=== PATIENT | female | born 1990 | race Caucasian/White ===

== ENCOUNTER 2020-01-25 17:32 | Emergency (ER) | payer OTHER, SELFPAY ==
[2020-01-25 17:50] VITALS: BP 126/76; PULSE 82; RESP 16; TEMP 36.8; O2SAT 100
--- NOTE | 2020-01-25 18:55 | ED.URI ---
HPI - URI/Sore Throat General Chief Complaint: Upper Respiratory Infection Stated Complaint: cough chills and aches Time Seen by Provider: 01/25/20 18:56 Source: patient and RN notes reviewed Mode of arrival: ambulatory Limitations: no limitations History of Present Illness HPI Narrative: 29 year old female who presents to [facility] who is 10 weeks with complaints of sore throat that started on Thursday with complaints of chills,cough, headache, body aches and Nausea and vomiting since yesterday. Patient states that she has been taking Robitussin for her symptoms, states that her nasal drainage is clear. Patient denies any shortness of breath or any wheezing, lungs are clear to ascultation with SAO2 100% on room air. Patient states that she took a flu shot this season. MD elicited complaint: cough, sore throat, rhinorrhea and other (chills, headache, nausea and vomiting) Onset (ago): day(s) (3) Consistency: constant Severity: moderate Pain scale (0-10): 5 Description of mucous: clear Able to tolerate fluids by mouth: Yes Exacerbating factors: swallowing Relieving factors: nothing Associated symptoms: chills, myalgias, headache, rhinorrhea, sore throat and cough Treatments prior to arrival: other (Robitussin) Related Data Home Medications Medication Instructions Recorded Confirmed [id number] fumarate-FA 1 tablet PO DAILY 01/25/20 01/25/20 [] Allergies Allergy/AdvReac Type Severity Reaction Status Date / Time No Known Allergies Allergy Verified 01/25/20 18:54 Review of Systems Review of Systems: Narrative: CONSTITUTIONAL:unknown if fever,positive for chills no sweats. EYES: Denies visual changes, redness, or discharge. ENT:Positive rhinorrhea, congestion, sore throat, no otalgia. CARDIOVASCULAR: Denies chest pain, palpitations, or edema. RESPIRATORY:Positive cough no dyspnea. GASTROINTESTINAL: Denies abdominal pain, reports nausea, vomiting, no diarrhea. GENITOURINARY: Denies dysuria or hematuria. SKIN: Denies rash or itching. MUSCULOSKELETAL: Denies back pain, joint pain, reports body aches NEUROLOGIC: reports headache,nonumbness, or weakness. PSYCHIATRIC:History of anxiety or depression. All systems reviewed & are unremarkable except as noted in HPI and below [facility] Past Medical History Medical History (Updated 01/31/20 @ 09:25 by Kanika Ansari NP) Anxiety and depression GERD (gastroesophageal reflux disease) Migraines Sciatica Surgical History Surgical History (Updated 01/31/20 @ 09:24 by Kanika Ansari NP) H/O laparoscopy Status post right foot surgery Social History Social History (Updated 01/31/20 @ 09:25 by Kanika Ansari NP) Smoking status: Never smoker Living arrangements: with family Gender identity (if verbalized by the patient): Female Comments At time of signature, agree with nursing past medical, social history. There is no relevant family history pertinent to the presenting complaint Exam Narrative: Exam Narrative: GENERAL: Well-appearing, well-nourished, and in no acute distress. HEAD: Normocephalic, atraumatic. EYES: PERRLA and EOMI. ENT: Nares red, clear rhinorrhea no epistaxis. Mucous membranes moist.TM's normal with good light reflex, throat pink with no lesions or exudates, post nasal drainage noted NECK: Supple. no Lymphadenopathy CHEST: Clear to auscultation. No respiratory distress.cough dry with SAO2 100% on room air HEART: Regular rate and rhythm. No murmur heard. Normal peripheral pulses. ABDOMEN: Soft, nontender, nondistended, normal active bowel sounds, no dysuria, negative McBurney point tenderness. EXTREMITIES: Normal range of motion. No edema. SKIN: Warm, dry, no rash. NEURO: No focal deficits. Alert and oriented x3. Course Vital Signs Vital signs: Vital Signs Temperature 36.8 C 01/25/20 17:50 Pulse Rate 82 01/25/20 17:50 Respiratory Rate 16 01/25/20 17:50 Blood Pressure 126/76 01/25/20 17:50 Pulse Oximetr
== END 2020-01-25 19:10 | disposition home or self-care (01) ==
PROVIDERS: Emergency Provider Registered Nurse; PCP Nurse Practitioner Family
DX: O99.511 Diseases of the respiratory system complicating pregnancy, first trimester (principal); Z3A.10 10 weeks gestation of pregnancy; J06.9 Acute upper respiratory infection, unspecified; J02.9 Acute pharyngitis, unspecified
CPT/HCPCS: 87081; 87804; 87880; 99213; G0463

== ENCOUNTER 2020-08-08 09:58 | Outpatient (CLI) | payer OTHER, MEDICAID, SELFPAY ==
[2020-08-08 10:46] VITALS: BP 132/85; PULSE 92
[2020-08-08 11:01] VITALS: BP 126/82; PULSE 85
[2020-08-08 11:07] LABS: Basophils Percent Auto 0.3 % (0.2-1.2); Eosinophils Absolute Auto 0.1 K/mm3 (0-0.3); Eosinophils Percent Auto 0.8 % (0-4.4); Hematocrit 30.4 % (37.0-47.0); Hemoglobin 10.3 g/dL (12.0-15.0); Immature Granulocyte Absolute 0.05 K/mm3 (0.00-0.031); Immature Granulocyte Percent A 0.6 % (0-0.5); Lymphocytes Absolute Auto 1.35 K/mm3 (0.9-3.2); Lymphocytes Percent Auto 15.6 % (18.3-44.2); Mean Corpuscular HGB Conc 33.9 g/dl (32-36); Mean Corpuscular Hemoglobin 27.8 pg (26-34); Mean Corpuscular Volume 81.9 fl (80-100); Mean Platelet Volume 11.2 fl (7.4-10.4); Monocytes Absolute Auto 0.6 K/mm3 (0.1-0.6); Monocytes Percent Auto 6.6 % (2.6-8.5); Neutrophils Absolute Auto 6.6 K/mm3 (1.3-6.7); Neutrophils Percent Auto 76.1 % (45.5-73.1); Platelet Count Result 150 k/mm3 (150-375); Red Blood Count 3.71 M/mm3 (4.2-5.4); Red Cell Distribution Width 13.7 % (11.5-14.5); White Blood Count 8.6 K/mm3 (4.5-10.0)
[2020-08-08 11:16] VITALS: BP 122/80; PULSE 83
[2020-08-08 11:20] VITALS: PULSE 80
[2020-08-08 11:21] LABS: Alanine Aminotransferase 16 U/L (4-35); Albumin Level 3.2 g/dL (3.5-5.1); Alkaline Phosphatase 175 U/L (38-126); Anion Gap 6 mmol/L (8-16); Aspartate Amino Transferase 19 U/L (14-36); Bilirubin,Total 0.5 mg/dL (0.2-1.3); Blood Urea Nitrogen 4 mg/dL (7-17); Calcium 8.8 mg/dL (8.4-10.2); Carbon Dioxide 21 mmol/L (22-30); Chloride 108 mmol/L (98-107); Estimated Glomerular Filt Rate > 60; Glucose 94 mg/dL (65-105); Potassium 3.7 mmol/L (3.4-5.0); Sodium 135 mmol/L (137-145); Uric Acid 4.1 mg/dL (2.5-7.5)
[2020-08-08 11:31] VITALS: BP 122/81; PULSE 69
--- NOTE | 2020-08-08 11:33 | PC.NURSE ---
Called Dr. Cruz with lab results and BPs. March D/C home.
== END 2020-08-08 11:35 | disposition home or self-care (01) ==
LOC: ANHOBOP 10:09 → ANHLDR 10:09
PROVIDERS: PCP Nurse Practitioner Family; Visit Provider Obstetrics & Gynecology
DX: O13.9 Gestational [pregnancy-induced] hypertension without significant proteinuria, unspecified trimester (principal); Z3A.00 Weeks of gestation of pregnancy not specified
CPT/HCPCS: 36415; 59025; 80053; 84550; 85025; 99199

== ENCOUNTER 2020-08-20 05:53 | Inpatient (IN) | payer OTHER, MEDICAID, SELFPAY ==
[2020-08-20] VITALS (117 sets, daily range): BP systolic 71–157; BP diastolic 30–102; PULSE 58–159; RESP 16–18; TEMP 36.1–37.1; O2SAT 83–100; BMI 40.6
[2020-08-20 06:45] LABS: Basophils Percent Auto 0.3 % (0.2-1.2); Eosinophils Absolute Auto 0.1 K/mm3 (0-0.3); Eosinophils Percent Auto 1.2 % (0-4.4); Immature Granulocyte Absolute 0.04 K/mm3 (0.00-0.031); Immature Granulocyte Percent A 0.5 % (0-0.5); Lymphocytes Absolute Auto 1.76 K/mm3 (0.9-3.2); Lymphocytes Percent Auto 20.4 % (18.3-44.2); Mean Corpuscular HGB Conc 33.3 g/dl (32-36); Mean Corpuscular Hemoglobin 27.3 pg (26-34); Mean Platelet Volume 11.1 fl (7.4-10.4); Monocytes Absolute Auto 0.8 K/mm3 (0.1-0.6); Monocytes Percent Auto 8.7 % (2.6-8.5); Neutrophils Percent Auto 68.9 % (45.5-73.1); Platelet Count Result 173 k/mm3 (150-375); Red Blood Count 3.66 M/mm3 (4.2-5.4); Red Cell Distribution Width 13.6 % (11.5-14.5); White Blood Count 8.6 K/mm3 (4.5-10.0)
[2020-08-20] MEDS: LACTATED RINGERS 1,000 ML 125 ML IV CONT ×3 (06:59→10:40)
[2020-08-20] MEDS: OXYTOCIN 30 UNITS/NS 500 ML 30 UNITS/500 ML BAG IV CONT (07:03)
--- NOTE | 2020-08-20 07:28 | LDADM ---
This patient, Ana Luisa Foreman, was admitted to Labor/Delivery/Recovery 104 on 08/20/20 at 05:53. Plans for labor, pain management and were discussed with patient. Patient/family oriented to hospital policies and general routines including ID bracelet, bed and alarms, visiting hours, pain management, procedures, bathroom and other care routines, personal items, smoking policy, room service/diet and guest tray routines, infant security routines, and visiting hours. Patient/Family are encouraged to report perceived risks to care and to ask questions if they do not understand what they are told or what they should do. See OBIX for further documentation.
--- NOTE | 2020-08-20 08:40 | WPDOBADMIT ---
Obstetrics - Admit Note Admission Note: record reviewed. Additions to the history and/or subsequent changes in the physical findings follow. 30 y/o at 39 2/7 weeks here for induction of labor. GBS neg. AVSS NST reactive TOCO: contractions irregularly ABD soft, nontender, gravid, vertex EXT nontender Cervix 5/50/-2. AROM with clear fluid. Vertex. A: IUP at 39 2/7 weeks with favorable cervix, desiring induction of labor. P: Oxytocin. Anticipate .
--- NOTE | 2020-08-20 09:37 | WPDANESEPP ---
Anes - Eval Pre Procedure Procedure: labor epidural Date/Time: 08/20/20 09:37 Surgeon: Anthony Pre Op Diagnosis: iol Patient Data Age: 30 Gender: F Height: 1.85 m Weight: 139.5 kg Last Vital Signs Temp 36.4 C L 08/20/20 06:25 Pulse 78 08/20/20 09:33 BP 135/91 H 08/20/20 09:33 Pulse Ox 100 08/20/20 09:33 Allergies Allergy/AdvReac Type Severity Reaction Status Date / Time No Known Allergies Allergy Verified 01/25/20 18:54 Home Medications Medication Instructions Recorded Confirmed Type [id number] fumarate-FA 1 tablet PO DAILY 01/25/20 08/20/20 History [] fluoxetine 20 mg PO DAILY 07/26/20 08/20/20 History pantoprazole 20 mg PO HS 08/20/20 08/20/20 History Laboratory Tests 08/20/20 08/20/20 08/20/20 06:40 06:40 06:40 WBC 8.6 K/mm3 K/mm3 (4.5-10.0) RBC 3.66 M/mm3 L M/mm3 (4.2-5.4) Hgb 10.0 g/dL L g/dL (12.0-15.0) Hct 30.0 % L % (37.0-47.0) MCV 82.0 fl fl (80-100) MCH 27.3 pg pg (26-34) MCHC 33.3 g/dl g/dl (32-36) RDW 13.6 % % (11.5-14.5) Plt Count 173 k/mm3 k/mm3 (150-375) MPV 11.1 fl H fl (7.4-10.4) Immature Gran % (Auto) 0.5 % % (0-0.5) Neut % (Auto) 68.9 % % (45.5-73.1) Lymph % (Auto) 20.4 % % (18.3-44.2) [place] % (Auto) 8.7 % H % (2.6-8.5) Eos % (Auto) 1.2 % % (0-4.4) Baso % (Auto) 0.3 % % (0.2-1.2) Lymph # (Auto) 1.76 K/mm3 K/mm3 (0.9-3.2) [place] # (Auto) 0.8 K/mm3 H K/mm3 (0.1-0.6) Eos # (Auto) 0.1 K/mm3 K/mm3 (0-0.3) Baso # (Auto) 0.0 K/mm3 K/mm3 (0.0-0.1) Abs Immat Gran (auto) 0.04 K/mm3 H K/mm3 (0.00-0.031) Absolute Neuts (auto) 6.0 K/mm3 K/mm3 (1.3-6.7) Absolute Nucleated RBC 0.0 K/mm3 K/mm3 (0.0-0.012) Nucleated RBC % 0.0 % % (0.0-0.2) RPR Pending Blood Type A Positive Antibody Screen Negative Patient hx anesthesia problems: none Family hx anesthesia problems: none PMFSH Past Medical History Medical History (Updated 01/31/20 @ 09:25 by Kanika Ansari NP) Anxiety and depression GERD (gastroesophageal reflux disease) Migraines Sciatica Surgical History Surgical History (Updated 01/31/20 @ 09:24 by Kanika Ansari NP) H/O laparoscopy Status post right foot surgery Family History Family History (Updated 07/26/20 @ 14:43 by Nola Hoover RN) Father Hypertension Sibling Hypertension Mother IBS (irritable bowel syndrome) Arthritis Social History Social History (Updated 01/31/20 @ 09:25 by Kanika Ansari NP) Smoking status: Never smoker Substance use: never Gender identity (if verbalized by the patient): Female Spiritual care concerns: No Exam Day of Procedure 08/20/20 09:37
[2020-08-20] MEDS: PHENYLEPHRINE 1,000 MCG/10 ML SYRINGE 100 MCG IV PUSH ×5 (10:14→11:09)
--- NOTE | 2020-08-20 14:01 | PM.OBPRVD ---
OB - Delivery Note Procedure Delivery date: 08/20/20 Procedure: Induction of labor with . Induction method: AROM and per pitocin protocol Delivery monitor: external FHT, external uterine and internal uterine Route of delivery: Laceration description: Perineal - 2nd Degree Delivery repair: vicryl (3-0) Specimen: Yes (cord blood) Estimated blood loss (mL): 390 Anesthesia type: Epidural Disposition: PACU Complications: None Narrative: 30 y/o at 39 2/7 weeks gestation who presented to the hospital for induction of labor. Oxytocin was administered intravenously. Amniotomy was performed with return of clear fluid. She received an epidural for pain control. Her labor progressed and her cervix dilated completely. She pushed with good effort and delivered the 's head to the perineum. A loose nuchal cord was reduced and the body delivered. The nose and mouth were bulb suctioned. After a delay, the cord was clamped and cut. The infant was handed off the field. Cord blood was collected. The placenta delivered spontaneously and was grossly normal in appearance. The usual 3 vessel cord was noted. A second degree midline perineal laceration was sustained. This was reapproximated using 3 0 Vicryl in the usual layered fashion. Excellent hemostasis resulted as did excellent reapproximation of the normal anatomy. Needle and instrument counts were correct. The patient was taken to recovery room in stable condition. The infant went to the nursery in stable condition. I was present and scrubbed for the entire delivery. Baby Date of : 08/20/20 Time of : 13:39 Weeks of gestation at delivery: 39 gender: Male Weight (pounds): 8 Weight (ounces): 14 presentation: vertex position: Left Occiput Anterior Placenta delivery description: Spontaneous and Normal Configuration cord vessel description: 3 Vessels and Nuchal Cord score one minute: 8 score five minutes: 9
--- NOTE | 2020-08-20 14:03 | PM.OBDSVD ---
DS: Admitting Diagnosis Admitting Diagnosis Admitting Diagnosis: IUP at 39 2/7 weeks Favorable cervix DS: Discharge Diagnosis Discharge Diagnosis (1) (normal spontaneous vaginal delivery): Code(s): O80 - Encounter for full-term uncomplicated delivery Status: Acute OB - DS: Summary OB Procedures : None OB Procedures Intrapartum: Spontaneous Vag Delivery OB Procedures: : None Time Spent with Patient Time attestation: Total time spent providing and/or coordinating discharge services: DS: Data Data Completed and Pending Labs on day of discharge: Labs from last 24 hours 08/20/20 08/20/20 08/20/20 06:40 06:40 06:40 WBC 8.6 RBC 3.66 L Hgb 10.0 L Hct 30.0 L MCV 82.0 MCH 27.3 MCHC 33.3 RDW 13.6 Plt Count 173 MPV 11.1 H Immature Gran % (Auto) 0.5 Neut % (Auto) 68.9 Lymph % (Auto) 20.4 [place] % (Auto) 8.7 H Eos % (Auto) 1.2 Baso % (Auto) 0.3 Lymph # (Auto) 1.76 [place] # (Auto) 0.8 H Eos # (Auto) 0.1 Baso # (Auto) 0.0 Abs Immat Gran (auto) 0.04 H Absolute Neuts (auto) 6.0 Absolute Nucleated RBC 0.0 Nucleated RBC % 0.0 RPR Pending Blood Type A Positive Antibody Screen Negative Discharge Plan Discharge Attending physician on discharge: Delfino Cruz Discharging Clinician: Delfino Cruz Patient Disposition: Home, Self-Care Activity: pelvic rest Diet: regular Discharge Instructions: Call or return if temperature above 100.4? F, increased abdominal pain, increased vaginal bleeding or any new problems. Stand Alone Forms: General Discharge Information Follow-up/Referrals: Delfino Cruz MD [Physician] - (6 weeks) Discharge Medications: New ibuprofen 600 mg tablet 600 mg PO Q6H PRN (Reason: cramps) Qty: 30 RF: 0 ferrous sulfate 325 mg (65 mg iron) tablet 325 mg PO DAILY Qty: 30 RF: 0 Continued 28-800 mg-mcg Tablet 1 tablet PO DAILY RF: 0 fluoxetine 20 mg Tablet 20 mg PO DAILY RF: 0 pantoprazole 20 mg Tablet,Delayed Release (Dr/Ec) 20 mg PO HS RF: 0 Date of admission: 08/20/20 05:53 Primary Care Provider: GRACE,MERCEDES Admitting Provider: Delfino Cruz Attending physician on admission: Delfino Cruz
[2020-08-20] MEDS: IBUPROFEN 600 MG TABLET PO ×2 (15:55→23:52)
[2020-08-20] MEDS: WITCH HAZEL 40 PADS 1 PAD TOPICAL (15:56)
[2020-08-20] MEDS: BENZOCAINE 20% AER SPR (*SP) 56 GM CAN 1 SPRAY TOPICAL (15:56)
--- NOTE | 2020-08-20 19:22 | PC.NURSE ---
1627 Pt admitted to room 292 per wheelchair from labor and delivery after spontaneous vaginal delivery of viable male infant at [address] Mercy Cruz. Pt is a and is choosing to breast feed ; Her partner is present. Couple oriented to room, staffing and procedures; admission folder reviewed. Pt's VSS and assessment WNL.
[2020-08-20] MEDS: ACETAMINOPHEN 325 MG TABLET 650 MG PO (19:29)
[2020-08-20] MEDS: PANTOPRAZOLE SOD SESQUIHYDRATE 20 MG TAB PO (21:09)
[2020-08-21] MEDS: ACETAMINOPHEN 325 MG TABLET 650 MG PO (04:43)
[2020-08-21 05:10] LABS: Hemoglobin 8.9 g/dL (12.0-15.0)
[2020-08-21 08:05] VITALS: BP 137/90; PULSE 103; RESP 18; TEMP 36.6; O2SAT 97
[2020-08-21 08:24] LABS: Rapid Plasma Reagin Non-Reactive (NonReactive)
[2020-08-21] MEDS: MULTIVIT/MIN/PREN/FOL AC/IRON TABLET 1 TAB PO (09:06)
[2020-08-21] MEDS: POLYSACCHARIDE IRON COMPLEX 150 MG CAPSULE PO (09:06)
[2020-08-21] MEDS: DOCUSATE SODIUM 100 MG CAPSULE PO (09:06)
[2020-08-21] MEDS: FLUoxetine HCL 20 MG CAPSULE PO (09:06)
--- NOTE | 2020-08-21 11:40 | PC.NURSE ---
Consulted with patient, mother called out for assist with waking , reporting last feeding was 4 hours ago. Mother reports she attempted with first children and quickly switched to bottle feeding within days. Mother has pain with latch and feeding. Mother's nipples are reddened and appear flat, nipples will roll out with slight stimulation. Reviewed feeding cues, frequencies, duration of feedings, feeding elimination flow sheet, and signs of adequate intake. Demonstrated stimulation techniques to wake for feeding. Several minutes of stimulation before infant awake and showing feeding cues. Assisted with infant to breast. Reviewed positioning/alignment in cross cradle, holding breast in U hold and guided asymmetrical latch on. Several attempts made before infant was able to latch correctly. Infant nursed eagerly, with steady draws and frequent swallowing noted. Reviewed signs of a correct latch, effective nursing and suck swallow ratio. was able to maintain latch without discomfort to mother. Nipple care reviewed. Suggested to stimulate while feeding to keep awake and nursing effectively for increased intake and to assist with maintaining deep latch. Demonstrated how to adjust latch more deeply while feeding. Instructed mother to call out for RN assistance if she is unable to latch infant for feeding or she has discomfort with nursing. Instructed feeding should be initiated three hours from start of last feeding or if feeding cues are noted before. Mother voiced understanding of information shared.
--- NOTE | 2020-08-21 13:25 | PM.OBPNVD ---
OB - PN: Subj Subjective Date/time seen: 08/21/20 13:25 Narrative: Pain OK. Would like circumcision for son. Also would like to go home. OB - PN: Obj Data Labs CBC & Chem 7: 08/21/20 04:29 Labs: Laboratory Results - last 24 hr 08/20/20 08/21/20 06:40 04:29 Hgb 8.9 L Hct 27.0 L RPR Non-reactive OB - PN A/P Plan Comments: A: PPD#1, doing well. Wants to go home. P: Reviewed circumcision in detail. Home to f/u 6 weeks. Exam Psych: Other: AVSS ABD soft, nontender, fundus firm EXT nontender
--- NOTE | 2020-08-21 14:00 | PC.NURSE ---
Patient received instructions on viewing the discharge video Mother & Baby Care, The First Two Weeks online. Patient was given the opportunity and encouraged to ask questions. Patient verbalized understanding of information shared and has been given the mother/baby guide for home reference.
--- NOTE | 2020-08-21 14:05 | WPDANLDPN2 ---
Anes-Prog Note L&D Date/Time: 08/21/20 14:05 Comfortable throughout: labor and delivery Neuraxial method: epidural Epidural/Spinal procedure site: clean & non-tender Neuro status: Neuro function grossly intact. Cardiovascular status: normal Respiratory status: normal Airway patency: baseline Mental status: baseline Post-Op hydration status: normal Vital Signs: Last Vital Signs Temp 36.6 C 08/21/20 08:05 Pulse 103 H 08/21/20 08:05 Resp 18 08/21/20 08:05 BP 137/90 08/21/20 08:05 Pulse Ox 97 08/21/20 08:05 Pain score (VAS): 0/10. Patient resting in bed at time of assessment, appears comfortable. Support person at bedside. Post-procedural complaints: none Patient feedback: Patient satisfied with anesthetic care.
[2020-08-22 13:56] VITALS: BP 151/85; PULSE 104; RESP 20; O2SAT 98
== END 2020-08-21 14:52 | disposition home or self-care (01) | DRG 807 ==
LOC: ANHLDR 14:04 → ANHOB2 16:30
PROVIDERS: Admitting Provider Obstetrics & Gynecology; PCP Nurse Practitioner Family; Visit Provider Obstetrics & Gynecology
DX: O69.81X0 Labor and delivery complicated by cord around neck, without compression, not applicable or unspecified (principal); Z37.0 Single live birth; O70.1 Second degree perineal laceration during delivery; Z3A.39 39 weeks gestation of pregnancy; Z23 Encounter for immunization
CPT/HCPCS: 36415; 85014; 85018; 85025; 86592; 86850; 86900; 86901; 90471; 90686; A9270; G0008; J2370; J2590; J2795; J7120

== ENCOUNTER 2021-03-14 13:17 | Emergency (ER) | payer OTHER, SELFPAY ==
--- NOTE | ~2021-03-14 | US_ITS ---
EXAMINATION: US right upper quadrant DATE: 03/14/2021 17:13 INDICATION: Right upper quadrant pain TECHNIQUE: Multiple grayscale and Doppler ultrasound images of the abdomen were obtained. COMPARISON: None available FINDINGS: The head and body of the pancreas are normal. The pancreatic tail is obscured by bowel gas. The liver is normal with normal echogenicity and echotexture. No surface nodularity. Normal hepatope jeanine flow in the main portal vein. A stone is present in the gallbladder. There is no gallbladder wall thickening or pericholecystic fluid. The dilated common bile duct measures 9 mm. There was no sonogr aphic Osman sign. IMPRESSION: 1. Cholelithiasis without additional findings of cholecystitis. 2. Dilated common bile duct of unclear etiology. Reviewed, dictated and finalized at location B.
[2021-03-14 13:19] VITALS: BP 139/75; PULSE 85; RESP 14; TEMP 36.2; O2SAT 99
[2021-03-14 13:33] LABS: Basophils Percent Auto 0.6 % (0.2-1.2); Eosinophils Absolute Auto 0.2 K/mm3 (0-0.3); Eosinophils Percent Auto 3.3 % (0-4.4); Hematocrit 35.3 % (37.0-47.0); Hemoglobin 11.4 g/dL (12.0-15.0); Immature Granulocyte Absolute 0.02 K/mm3 (0.00-0.031); Immature Granulocyte Percent A 0.3 % (0-0.5); Lymphocytes Absolute Auto 2.18 K/mm3 (0.9-3.2); Lymphocytes Percent Auto 33.1 % (18.3-44.2); Mean Corpuscular HGB Conc 32.3 g/dl (32-36); Mean Corpuscular Hemoglobin 26.9 pg (26-34); Mean Corpuscular Volume 83.3 fl (80-100); Mean Platelet Volume 10.2 fl (7.4-10.4); Monocytes Absolute Auto 0.5 K/mm3 (0.1-0.6); Monocytes Percent Auto 7.6 % (2.6-8.5); Neutrophils Absolute Auto 3.6 K/mm3 (1.3-6.7); Neutrophils Percent Auto 55.1 % (45.5-73.1); Platelet Count Result 246 k/mm3 (150-375); Red Blood Count 4.24 M/mm3 (4.2-5.4); Red Cell Distribution Width 13.7 % (11.5-14.5); White Blood Count 6.6 K/mm3 (4.5-10.0)
[2021-03-14 13:43] LABS: Alanine Aminotransferase 31 U/L (4-35); Albumin Level 4.4 g/dL (3.5-5.1); Alkaline Phosphatase 68 U/L (38-126); Anion Gap 7 mmol/L (8-16); Aspartate Amino Transferase 25 U/L (14-36); Bilirubin,Total 0.5 mg/dL (0.2-1.3); Blood Urea Nitrogen 12 mg/dL (7-17); Calcium 9.6 mg/dL (8.4-10.2); Carbon Dioxide 25 mmol/L (22-30); Chloride 106 mmol/L (98-107); Estimated CRCL calculation 132 ml/min; Estimated Glomerular Filt Rate > 60; Glucose 89 mg/dL (65-105); Lipase 73 U/L (23-300); Potassium 4.3 mmol/L (3.4-5.0); Sodium 138 mmol/L (137-145)
[2021-03-14 14:12] LABS: Add Urine Microscopic? YES; Appearance Urine Cloudy (Clear); Bilirubin Urine Negative (Negative); Blood Urine 2+ (Negative); Color Urine Yellow (Yellow); Glucose Urine UA Negative (Negative); Ketones Urine Negative (Negative); Leukocyte Esterase Ur Negative LEU/UL (Negative); Mucus Urine Few /lpf; Nitrate Urine Negative (Negative); Protein Urine 1+ mg/dL (Negative); Specific Grav Ur 1.028 (1.001-1.035); Squamous Epithelial Cell Urine Many /hpf (Few); Urobilinogen Urine Negative mg/dL (<2.0); WBC Urine 0-3 /hpf
--- NOTE | 2021-03-14 16:31 | ED.ABDPAIN ---
HPI - Abdominal Pain General Chief Complaint: Abdominal Pain Stated Complaint: abd pain Time Seen by Provider: 03/14/21 15:37 Source: patient Mode of arrival: ambulatory Limitations: no limitations History of Present Illness HPI narrative: 30-year-old female History of endometriosis, had a laparoscopy in 2016, has a 7-month-old, supposed to have another laparoscopy in March She complains of a 3-day history of upper abdominal pain, mostly right upper quadrant, sometimes hurts in her back, then seems to go through the center of her abdomen and down into the pelvis It does seem to get worse when she moves or walks around, but is not affected by meals She does not have nausea or vomiting or change in her bowel habits, she does not have dysuria or hematuria, her last menstrual period was around February 16 and she thinks she might have just started this afternoon, no other complaints of pelvic pain or discharge She has not tried taking anything for it Related Data Home Medications Medication Instructions Recorded Confirmed biotin 5 mg capsule 5 mg PO DAILY 02/05/21 cholecalciferol (vitamin D3) 25 25 mcg PO DAILY 02/05/21 mcg (1,000 unit) capsule coenzyme Q10 10 mg capsule 10 mg PO ONCE 02/05/21 ferrous sulfate 325 mg (65 mg 325 mg PO DAILY 02/05/21 iron) tablet mecobalamin (vitamin B12) 5,000 5,000 mcg PO DAILY 02/05/21 mcg lozenge omega-3 fatty acids 1,000 mg 1,000 mg PO DAILY 02/05/21 capsule Allergies Allergy/AdvReac Type Severity Reaction Status Date / Time No Known Allergies Allergy Verified 03/14/21 17:40 Review of Systems Review of Systems: All systems reviewed & are unremarkable except as noted in HPI and below Constitutional: Constitutional: Reports no additional constitutional complaints, Denies chills, Denies fever(s) and Denies headache(s) Eyes: Eyes: Reports no additional eye complaints and Denies change in vision ENT: Denies headache(s) and Denies sore throat Cardiovascular: Cardiovascular: Denies chest pain and Denies dyspnea Respiratory: Respiratory: Denies cough and Denies dyspnea Gastrointestinal: Gastrointestinal: Reports abdominal pain, Denies bloating, Denies diarrhea and Denies vomiting Genitourinary: Genitourinary: Denies hematuria, Denies urinary frequency and Denies dysuria Musculoskeletal: Musculoskeletal: Denies deformity, Denies arthralgias, Denies joint swelling and Denies numbness Integumentary/Breasts: Skin/Breast: Denies rash and Denies wounds Neurologic: Denies headache(s), Denies focal weakness and Denies numbness Psychiatric: Psychiatric: Reports no additional psychiatric complaints Endocrine: Endocrine: Reports no additional endocrine complaints Hematologic/Lymphatic: Hematologic/Lymphatic: Reports no additional hematologic/lymphatic complaints Allergic/Immunologic: Allergic/Immunologic: Reports no additional allergic/immunologic complaints PMFSH Past Medical History Medical History Anxiety and depression Endometriosis Fracture of 5th metatarsal GERD (gastroesophageal reflux disease) Migraine Sciatica (spontaneous vaginal delivery) Surgical History Surgical History H/O laparoscopy Status post right foot surgery Family History Family History Father Hypertension Sibling Hypertension Anger Arthritis Mother IBS (irritable bowel syndrome) Arthritis Depression Grandparent Heart disease Diabetes mellitus Crohn's disease Daughter ADHD Social History Social History Tobacco type: e-cigarettes/vaping Second hand tobacco smoke exposure: No Alcohol intake: current Substance use: never Substance use type: does not use Gender identity (if verbalized by the patient): Female Spiritual care con
[2021-03-14 18:20] VITALS: BP 132/81; PULSE 81; RESP 16; O2SAT 97
== END 2021-03-14 18:20 | disposition home or self-care (01) ==
PROVIDERS: Emergency Provider Emergency Medicine; PCP Family Medicine
DX: K80.80 Other cholelithiasis without obstruction (principal); N80.9 Endometriosis, unspecified; K21.9 Gastro-esophageal reflux disease without esophagitis; F17.290 Nicotine dependence, other tobacco product, uncomplicated
CPT/HCPCS: 36415; 76705; 80053; 81001; 81025; 83690; 85025; 99284

== ENCOUNTER → 2021-03-23 01:10 | Outpatient (CLI) | payer OTHER, SELFPAY ==
[2021-03-23 20:54] LABS: SARS-CoV-2 RNA PCR Negative
== END ==
PROVIDERS: PCP Family Medicine; Visit Provider Obstetrics & Gynecology
DX: Z01.812 Encounter for preprocedural laboratory examination (principal); Z20.822 Contact with and (suspected) exposure to COVID-19
CPT/HCPCS: C9803; U0003; U0005

== ENCOUNTER 2021-03-27 04:35 | Day surgery (SDC) | payer OTHER, SELFPAY ==
[2021-03-18 10:42] VITALS: BMI 36.6
[2021-03-27] VITALS (8 sets, daily range): BP systolic 122–137; BP diastolic 66–80; PULSE 65–87; RESP 12–18; TEMP 36.3–37; O2SAT 100
--- NOTE | 2021-03-27 08:07 | WPDANESEPPF ---
Anes - Initial Pre Proc Eval Procedure: Operation Date: 03/27/21 14:30 Proposed Procedures p Diagnostic Laparoscopy, Hysteroscopy Dilation & Curettage - Delfino Cruz MD s Laparoscopic Cholecystectomy - Courtney Soria MD Date/Time: 03/27/21 08:07 Surgeon: Delfino Cruz MD Pre Op Diagnosis: pelvic pain, irregular bleeding, chronic cholecyst Patient Data Age: 30 Gender: F Height: 1.83 m Weight: 122.5 kg Allergies Allergy/AdvReac Type Severity Reaction Status Date / Time No Known Allergies Allergy Verified 03/29/21 09:33 Home Medications Medication Instructions Recorded Confirmed Type phentermine 30 mg capsule 30 mg PO DAILY #30 cap 12/24/20 03/29/21 Rx biotin 5 mg capsule 5 mg PO DAILY 02/05/21 03/29/21 History cholecalciferol (vitamin D3) 25 25 mcg PO DAILY 02/05/21 03/29/21 History mcg (1,000 unit) capsule duloxetine 30 mg capsule,delayed 30 mg PO DAILY #30 cap 02/05/21 03/29/21 Rx release ferrous sulfate 325 mg (65 mg 325 mg PO DAILY 02/05/21 03/29/21 History iron) tablet sumatriptan succinate 50 mg tablet See Rx Instructions PO .COMPLEX 02/05/21 03/29/21 Rx #10 tablet qpwmxpz-asuxhremdqsno-otjciwuh 250 1 tablet PO Q4-6H PRN 03/29/21 03/29/21 History mg-250 mg-65 mg tablet coenzyme Q10 50 mg capsule 50 mg PO DAILY 03/29/21 03/29/21 History cyanocobalamin (vitamin B-12) 1,000 mcg PO DAILY 03/29/21 03/29/21 History 1,000 mcg capsule lactobacillus combination no.8 3 3,000 mmu cells PO DAILY 03/29/21 03/29/21 History billion cell capsule omega-3 fatty acids 1,000 mg 1,000 mg PO DAILY 03/29/21 03/29/21 History capsule topiramate 25 mg tablet 25 mg PO DAILY #30 tablet 03/29/21 Rx Patient hx anesthesia problems: none Family hx anesthesia problems: none PMFSH Past Medical History Medical History Anxiety and depression Endometriosis Fracture of 5th metatarsal GERD (gastroesophageal reflux disease) Migraine Sciatica Scoliosis (spontaneous vaginal delivery) Surgical History Surgical History (Updated 03/29/21 @ 09:38 by Sandi Martinez MA) H/O dilation and curettage H/O laparoscopy Hx of cholecystectomy Status post right foot surgery Family History Family History Father Hypertension Sibling Hypertension Anger Arthritis Mother IBS (irritable bowel syndrome) Arthritis Depression Grandparent Heart disease Diabetes mellitus Crohn's disease Daughter ADHD Social History Social History Smoking status: Never smoker Tobacco type: e-cigarettes/vaping Second hand tobacco smoke exposure: No Alcohol intake: never Substance use: never Substance use type: does not use Gender identity (if verbalized by the patient): Female Spiritual care concerns: No Agree to blood products: Yes Anes - Eval Final PreProcedure Day of Procedure 03/27/21 08:07 Patient weight: obese Heart: regular rate and rhythm Lungs: clear to auscultation and normal air movement Airway: Mallampati scale class II Neurological: alert and oriented Last oral intake: >/= 8 hours ASA classification: II Emergent: no Anesthetic plan: proceed Anesthesia type and monitoring: general ETT and standard monitoring Informed Consent: The patient's anesthetic plan and its attendant risks and benefits were discussed with the patient/family/POA. Questions were solicited and answers provided to the satisfaction of the patient/family/POA.
--- NOTE | 2021-03-27 08:49 | PM.IMHP ---
H&P: HPI History of Present Illness Date/Time: 03/27/21 08:49 30 y/o with right lower quadrant cramping. She also has several days of spotting before each monthly menses. Ultrasound exam shows a prominent endometrial complex measuring 1.5 cm in thickness. In addition, she is having a laparoscopic cholecystectomy with general surgery today. Chief Complaint: Pain and bleeding Review of Systems Review of Systems: All systems reviewed & are unremarkable except as noted in HPI and below PMFSH Past Medical History Medical History Anxiety and depression Endometriosis Fracture of 5th metatarsal GERD (gastroesophageal reflux disease) Migraine Sciatica Scoliosis (spontaneous vaginal delivery) Surgical History Surgical History H/O laparoscopy Status post right foot surgery Family History Family History Father Hypertension Sibling Hypertension Anger Arthritis Mother IBS (irritable bowel syndrome) Arthritis Depression Grandparent Heart disease Diabetes mellitus Crohn's disease Daughter ADHD Social History Social History Smoking status: Never smoker Tobacco type: e-cigarettes/vaping Second hand tobacco smoke exposure: No Alcohol intake: never Substance use: never Substance use type: does not use Living arrangements: with family Gender identity (if verbalized by the patient): Female Spiritual care concerns: No Agree to blood products: Yes Meds Home Medications and Allergies Home Medications Medication Instructions Recorded Confirmed Type phentermine 30 mg capsule 30 mg PO DAILY #30 cap 12/24/20 03/20/21 Rx biotin 5 mg capsule 5 mg PO DAILY 02/05/21 03/20/21 History cholecalciferol (vitamin D3) 25 25 mcg PO DAILY 02/05/21 03/20/21 History mcg (1,000 unit) capsule coenzyme Q10 10 mg capsule 10 mg PO DAILY 02/05/21 03/20/21 History duloxetine 30 mg capsule,delayed 30 mg PO DAILY #30 cap 02/05/21 03/20/21 Rx release ferrous sulfate 325 mg (65 mg 325 mg PO DAILY 02/05/21 03/20/21 History iron) tablet mecobalamin (vitamin B12) 5,000 5,000 mcg PO DAILY 02/05/21 03/20/21 History mcg lozenge sumatriptan succinate 50 mg tablet See Rx Instructions PO .COMPLEX 02/05/21 03/20/21 Rx #10 tablet sumatriptan succinate 4 mg/0.5 mL 4 mg SUBCUT ONCE #1 ml 03/06/21 03/20/21 Rx subcutaneous pen injector naproxen [Naprosyn] 500 mg PO BID #14 tablet 03/14/21 03/20/21 Rx Allergies Allergy/AdvReac Type Severity Reaction Status Date / Time No Known Allergies Allergy Verified 03/20/21 10:26 Exam Narrative: Exam Narrative: AVSS Const: Orientation/consciousness: patient oriented x3 Other: Well-developed, well-nourished female in no acute distress. Neck: Thyroid: thyroid normal Lymphatic: no lymphadenopathy noted (in neck, axilla or inguinal nodes) Resp: Effort & Inspection: normal respiratory effort Auscultation: clear to auscultation bilaterally Cardio: Rate: regular rate Rhythm: regular rhythm Heart sounds: S1 normal heart sound present and S2 normal heart sound present GI: Other: ABD: Soft, nontender, nondistended. No guarding or rebound tenderness. No hepatosplenomegaly. : General: Yes no CVA tenderness Other: External genitalia: normal female hair distribution, without lesion. Urethral meatus: no lesion, non prolapsed. Bladder: no mass, nontender Vagina: well-estrogenized, without lesion or discharge. No cystocele or rectocele. Cervix: no lesion or discharge. Uterus: small, anteverted, freely mobile, nontender Adnexa: no mass or tenderness. Anus/perineum: no lesions, nontender Back/Spine/Pelvis: Back: no CVA tenderness Skin: General skin exam: normal color and no rashes or lesions noted Neuro: General: patient thuy
[2021-03-27] MEDS: ACETAMINOPHEN 500 MG TABLET 1000 MG PO (13:03)
[2021-03-27] MEDS: LACTATED RINGERS 1,000 ML 30 ML IV CONT ×2 (13:25→16:48)
[2021-03-27] MEDS: KETOROLAC 15 MG/ML VIAL (*BKC) IV PUSH (13:26)
[2021-03-27 13:38] LABS: Amylase 51 U/L (30-110)
[2021-03-27] MEDS: FAMOTIDINE 20 MG/2 ML VIAL IV PUSH (13:49)
[2021-03-27] MEDS: SCOPOLAMINE 1.5 MG PATCH TRANSDERM (13:49)
--- NOTE | 2021-03-27 14:10 | WPDHPUPDATE1 ---
History and Physical Update Update Date/Time: 03/27/21 14:10 History and Physical has been reviewed, including an updated exam of the patient. There are NO changes in the patient's condition. Risks, benefits, and alternatives have been discussed and questions answered. Patient agrees to proceed with procedure.
--- NOTE | 2021-03-27 14:50 | WPDHPUPDATE1 ---
History and Physical Update Update Date/Time: 03/27/21 14:50 History and Physical has been reviewed, including an updated exam of the patient. There are NO changes in the patient's condition. Risks, benefits, and alternatives have been discussed and questions answered. Patient agrees to proceed with procedure.
[2021-03-27] MEDS: ceFAZolin 3 GM/D5W 100 ML 100 ML IVPB (14:58)
[2021-03-27] MEDS: BUPIVACAINE/EPINEPHRINE 0.5% 30 ML VIAL INFILTRATE (15:27)
--- NOTE | 2021-03-27 16:05 | SUR.OPER ---
DR RENDON START DIAGNOSTIC LAPAROSCOPY 1600/PATIENT REMAINS IN CHOLECYSTECTOMY POSITION AND PLACED IN TRENDELENBERG.
--- NOTE | 2021-03-27 16:06 | PM.PROC ---
Procedure Note - Detailed Date of procedure: 03/27/21 Pre-op diagnosis: pelvic pain, irregular bleeding, chronic cholecyst Procedure performed: laparoscopic cholecystectomy Description of procedure: The patient was taken to the operating room placed in the supine position. After adequate induction of general anesthesia, the patient was prepped and draped in normal sterile fashion. A time-out was then performed to verify the patient's identity as well as the procedure being performed. I then made a 5 mm incision in the infraumbilical region. Through this, a Veress needle was placed into the peritoneal cavity and CO2 gas was then insufflated. After adequate pneumoperitoneum was achieved, the Veress needle was removed and a 5 mm optiview trocar was placed through this incision under direct visualization. I then placed the laparoscope through this trocar site and under direct visualization placed a further 12 mm subxiphoid port as well as 2 additional 5 mm ports in the right upper abdomen. The gallbladder was then identified and was noted to be moderately inflamed and distended. I was able to place a grasper at the dome of the gallbladder and this was retracted anterior and cephalad up over the liver. A 2nd retractor was then placed at the infundibulum and retracted laterally, this allowed visualization of the triangle of Calot. I then was able to visualize the cystic duct in its entirety from its proximal insertion into the gallbladder, to its distal junction with the common hepatic/common bile duct junction. At this point, I carefully skeletonized the proximal cystic duct with the [place] dissector. I then clipped and transected the proximal cystic duct. Next I visualized the cystic artery. Again the artery was skeletonized, clipped, and transected. I then used the Bovie cautery to take down the peritoneal attachments of the gallbladder off the liver bed. The gallbladder was noted to be very intrahepatic. Once the gallbladder specimen was completely detached, an endo-pouch was placed through the 12 mm port site. I then placed the gallbladder specimen into the Endo pouch and removed the endo-pouch from the 12 mm port site. The specimen will now be sent to pathology for further review. I then copiously irrigated the right upper quadrant. There was some oozing in the liver bed and this was controlled with the bovie cautery. Once hemostasis was noted in the liver bed, I placed some surgicel in the bed for continued hemostasis. The clips were noted to be in good position on both the cystic duct stump and the cystic artery stump. No other pathology was noted in the right upper quadrant. I then moved the laparoscope to the subxiphoid port. No iatrogenic injury or other pathology was noted in the lower abdomen. I then closed the 12 mm trocar site under direct visualization using the Stewart cone and 0 Vicryl suture. At this point, Dr. Cruz was present in the OR to continue with his portion of the procedure. Please see his operative report for further details. Implants: none Anesthesia: GETA Surgeon: Courtney Soria MD Estimated blood loss (mL): 100 Drains: No Packing: No Pathology: yes Complications: No immediate complications Condition: stable Disposition: PACU Findings: chronic cholecystitis, cholelithiasis, intrahepatic GB
--- NOTE | 2021-03-27 16:18 | SUR.OPER ---
END TIME FOR DIAGNOSTIC LAPAROSCOPY @ 16:18.
--- NOTE | 2021-03-27 16:31 | SUR.OPER ---
HYSTEROSCOPY START 16:32. POSITIONED TO LITHOTOMY WITH ASSISTANCE OF 4.
--- NOTE | 2021-03-27 16:47 | PM.PROC ---
Procedure Note - Detailed Date of procedure: 03/27/21 Pre-op diagnosis: pelvic pain, irregular bleeding, chronic cholecyst Metrorrhagia Dysmenorrhea Post-op diagnosis: same Procedure performed: Diagnostic laparoscopy Hysteroscopy Dilation and sharp curettage Description of procedure: I arrived to the room after Dr. Soria had finished laparoscopic cholecystectomy. The pelvis was inspected with the findings noted above. The ruptured corpus luteum cyst on the right was irrigated and was hemostatic. The ports were then withdrawn and the gas was allowed to escape. Skin incisions were reapproximated using 4-0 monocryl and dermaflex. She was then placed in dorsal lithotomy position and prepped and draped. The bladder was drained with a red rubber catheter. A sterile speculum was placed into the vagina. The anterior lip of the cervix was grasped with single-tooth tenaculum. Ten mL of 1% lidocaine was administered in a paracervical block. The cervix was then gently dilated using Hegar dilators until an 8 mm dilator could be passed. Hysteroscopy was performed using sterile saline as a distention medium. Findings are as noted above. Sharp curettage was then performed, and endometrial curettings were collected on a Telfa pad and passed off to be sent to pathology. Finally, the the Winifred device was advanced and endometrial ablation commenced without difficulty. The device was withdrawn and a second look was taken using the hysteroscope. Excellent coverage of the endometrial cavity was noted. The tenaculum was removed. Hemostasis was excellent. Sponge, lap, needle and instrument counts were correct. The patient was awakened and taken to the recovery room in stable condition. I was present and scrubbed through the entire procedure. Implants: None Anesthesia: GETA Surgeon: Delfino Cruz MD Estimated blood loss (mL): 5 Drains: No Packing: No Pathology: yes (endometrial curettings) Complications: None Condition: stable Disposition: PACU Findings: The right ovary demonstrated an apparent ruptured corpus luteum cyst. Otherwise, both ovaries, both tubes, uterus, bilateral round and uterosacral ligaments, anterior and posterior cul de sacs were all normal in appearance. The endometrial cavity showed thick endometrial tissue. Otherwise, there were no abnormalities. Both tubal ostia were seen.
[2021-03-27] MEDS: fentaNYL CITRATE INJ (*CRX) 100 MCG/2 ML VIAL 25 MCG IV PUSH ×8 (16:55→17:30)
[2021-03-27] MEDS: ONDANSETRON INJ 4 MG/2 ML VIAL IV PUSH (17:01)
[2021-03-27] MEDS: oxyCODONE HCL (*CRX) 5 MG TAB IR PO (18:14)
== END 2021-03-27 19:00 | disposition home or self-care (01) ==
PROVIDERS: Surgery; PCP Family Medicine; Visit Provider Obstetrics & Gynecology
PROC: 0UDB8ZZ Extraction of Endometrium, Via Natural or Artificial Opening Endoscopic (ICD-10-PCS; CPT 58558; principal; 2021-03-27 14:30)
PROC: 0FT44ZZ Resection of Gallbladder, Percutaneous Endoscopic Approach (ICD-10-PCS; CPT 47562; 2021-03-27 14:30)
DX: R10.2 Pelvic and perineal pain (principal); N92.6 Irregular menstruation, unspecified; F41.8 Other specified anxiety disorders; K80.10 Calculus of gallbladder with chronic cholecystitis without obstruction; K21.9 Gastro-esophageal reflux disease without esophagitis; E66.9 Obesity, unspecified; Z68.37 Body mass index [BMI] 37.0-37.9, adult; F17.290 Nicotine dependence, other tobacco product, uncomplicated; N80.9 Endometriosis, unspecified; M41.9 Scoliosis, unspecified; R93.89 Abnormal findings on diagnostic imaging of other specified body structures; N83.11 Corpus luteum cyst of right ovary; N94.6 Dysmenorrhea, unspecified; K82.8 Other specified diseases of gallbladder
CPT/HCPCS: 58563; 47562; 36415; 82150; 86850; 86900; 86901; 88304; 88305; A9270; J0690; J1100; J1885; J2250; J2405; J2704; J2710; J3010; J7030; J7120

== ENCOUNTER 2021-05-07 13:17 | Outpatient (CLI) | payer OTHER, SELFPAY ==
--- NOTE | ~2021-05-07 | XR_ITS ---
XR abdomen/kub 1V 05/07/2021 13:41 INDICATION: Flank pain TECHNIQUE: KUB COMPARISON: None FINDINGS: Bowel gas pattern is normal. There are cholecystectomy clips. There is no evidence of free air, mass, organomegaly, ascites or obstruction. No abnormal calculi are seen. The bones appear int act. IMPRESSION: 1: No acute abdominal abnormality identified. Reviewed, dictated and finalized at location B.
== END 2021-05-07 13:18 | disposition home or self-care (01) ==
LOC: ANHIMG 13:19
PROVIDERS: PCP Family Medicine; Visit Provider Physician Assistant
DX: R10.9 Unspecified abdominal pain (principal)
CPT/HCPCS: 74018

== ENCOUNTER 2021-08-21 13:19 | Outpatient (CLI) | payer OTHER, SELFPAY ==
--- NOTE | ~2021-08-21 | XR_ITS ---
EXAMINATION: XR lumbar spine min 4V DATE: 08/21/2021 13:53 INDICATION: Lumbar radiculopathy. TECHNIQUE: 6 views of lumbar spine were obtained. COMPARISON: Lumbar spine radiograph 06/18/2019 FINDINGS: There is 5 degrees levocurvature of thoracolumbar spine. Vertebral body heights are normal. There is mildly decreased disc height at L5-S1. There is multilevel mild facet joint osteoarthritis. Surgical clips in the right upper quadrant are likely from cholecystectomy. IMPRESSION: 1. Mild lumbar spondylosis. Reviewed, dictated and finalized at location A. IMPRESSION: 1. Mild lumbar spondylosis.
== END 2021-08-21 13:20 | disposition home or self-care (01) ==
LOC: ANHIMG 13:21
PROVIDERS: PCP Family Medicine; Visit Provider Physician Assistant
DX: M47.26 Other spondylosis with radiculopathy, lumbar region (principal)
CPT/HCPCS: 72110

== ENCOUNTER → 2021-09-12 07:33 | Outpatient (CLI) | payer OTHER, SELFPAY ==
[2021-09-12 18:09] LABS: SARS-CoV-2 RNA PCR Negative
== END ==
PROVIDERS: PCP Family Medicine; Visit Provider Physician Assistant
DX: R05.9 Cough, unspecified (principal); Z20.822 Contact with and (suspected) exposure to COVID-19
CPT/HCPCS: C9803; U0003; U0005

== ENCOUNTER → 2021-10-25 07:27 | Outpatient (CLI) | payer OTHER, SELFPAY ==
--- NOTE | 2021-11-11 14:27 | WPDSLEEPSTUD ---
Sleep Study Date of Study: 10/25/21 <Shannon Candelaria, DO - Last Filed: 11/11/21 15:10> Ordering Provider: Mary Parr PA-C <Shannon Candelaria, DO - Last Filed: 11/11/21 15:10> Interpreting Physician: Shannon Candelaria DO <Shannon Candelaria, DO - Last Filed: 11/11/21 15:10> Sleep Study Type: Polysomnogram <Shannon Candelaria, DO - Last Filed: 11/11/21 15:10> Height: 1.83 m <Shannon Candelaria DO - Last Filed: 11/11/21 15:10> Weight: 138.346 kg <Shannon Candelaria DO - Last Filed: 11/11/21 15:10> Body Mass Index: 41.3 <Shannon Candelaria DO - Last Filed: 11/11/21 15:10> Neck Circumference (inches): 15 <Shannon Candelaria DO - Last Filed: 11/11/21 15:10> [place]: 16 <Shannon Candelaria DO - Last Filed: 11/11/21 15:10> Reason for Sleep Study Snoring, multiple nighttime awakenings. <Shannon Candelaria, DO - Last Filed: 11/11/21 15:10> Sleep History The patient is a 31-year-old female with anxiety, depression, GERD, migraine, endometriosis and scoliosis that had a sleep study ordered by her primary care for multiple nighttime awakenings. The patient states that she rarely awakens from sleep short of breath. She frequently awakens at night with heartburn, belching or cough. She constantly snores loud enough others complain. She occasionally has trouble sleeping when she has a cold. She denies waking up gasping for air throughout the night. She constantly has breathing problems at night observed by others. She occasionally sweats excessively at night. She frequently notices heart palpitations or irregular heartbeats during the night. She frequently falls asleep during the day and rarely falls asleep while driving. She rarely has trouble at school or work due to sleepiness. She rarely feels unable to move when waking up or falling asleep. She occasionally experiences vivid dreamlike scenes upon awakening or falling asleep. She rarely has nightmares. She rarely has thoughts racing through her mind. She occasionally feels sad or depressed. She occasionally has anxiety. She occasionally notices parts of her body jerk. She frequently kicks during the night. She frequently experiences crawling and aching feelings in her legs as well as leg pain during the night. She occasionally grinds her teeth during sleep and awakens with morning jaw pain for she is occasionally bothered by pain during the day and rarely awakened by pain during the night. She frequently wakes feeling stiff in the morning with sore and achy muscles. She constantly wakes up with pain in the neck, spine and other joints. She goes to bed at 10:00 p.m. on weekdays and between 10 and 11:00 p.m. on weekends. It takes her anywhere from 5-30 minutes to fall asleep. She wakes up twice throughout the night to use the restroom. It typically takes her an hour to fall back asleep. She wakes up at 6:50 a.m. on weekdays and 8:00 a.m. on weekends. She typically gets between 6 and 8 hours of sleep per night. She typically stays in bed for 10 minutes after awakening. She currently lives with her and 3 children. She does not consume any caffeinated beverages within 2 hours of bedtime. She does engage in physical exercise before bedtime. She does watch television before falling asleep. She does take naps in the afternoon or the evening but they are not refreshing. She drinks up to 2 caffeinated beverages per day. She denies tobacco, alcohol recreational drug use. <Shannon Candelaria DO - Last Filed: 11/11/21 15:10> [facility] Past Medical History Medical History: Medical History Anxiety and depression Endometriosis Fracture of 5th metatarsal GERD (gastroesophageal reflux disease) Migraine Sciatica Scoliosis (spontaneous vaginal delivery) <Shannon Candelaria DO - Last Filed: 11/11/21 15:10> Surgical History Surgical
[2021-11-11 14:37] VITALS: BMI 41.3
== END ==
PROVIDERS: PCP Family Medicine; Visit Provider Physician Assistant
DX: G47.33 Obstructive sleep apnea (adult) (pediatric) (principal)
CPT/HCPCS: 95810

== ENCOUNTER 2021-12-04 17:44 | Outpatient (CLI) | payer OTHER, SELFPAY ==
--- NOTE | ~2021-12-04 | XR_ITS ---
EXAMINATION: XR chest 2V EXAM DATE: 12/04/2021 17:58 INDICATION: R06.02 - Shortness of breath onset post COVID 1 mo ago. TECHNIQUE: Frontal and lateral projections of the chest obtained and reviewed. Comparison is made to prior examination from 03/20/2021. FINDINGS: The lungs are clear. There are no pleural effusions. The cardiomediastinal silhouette is within normal limits. There is no pneumothorax suspected. Mild to moderate thoracic scoliosis. IMPRESSION: No acute cardiopulmonary findings. Reviewed, dictated and finalized at location A. [employer]ENT[employer]IST
== END 2021-12-04 17:45 | disposition home or self-care (01) ==
LOC: ANHIMG 17:46
PROVIDERS: PCP Family Medicine; Visit Provider Physician Assistant
DX: R06.02 Shortness of breath (principal)
CPT/HCPCS: 71046

== ENCOUNTER 2021-12-23 08:28 | Outpatient (CLI) | payer OTHER, SELFPAY ==
--- NOTE | ~2021-12-23 | XR_ITS ---
EXAMINATION: XR hand RT min 3V EXAM DATE: 12/23/2021 08:47 INDICATION: Fell yesterday. Right hand pain. TECHNIQUE: Right hand frontal, lateral and oblique projections obtained and reviewed. There is no pr ior study for comparison. FINDINGS: Right metacarpal bones are unremarkable. There are no acute fractures or dislocations iden tified. There is no subcutaneous gas. The soft tissue is unremarkable. There are no radiopaque fo reign bodies. IMPRESSION: No acute osseous findings. Reviewed, dictated and finalized at location A. 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
== END 2021-12-23 08:29 | disposition home or self-care (01) ==
LOC: ANHIMG 08:32
PROVIDERS: PCP Family Medicine; Visit Provider Physician Assistant
DX: S69.90XA Unspecified injury of unspecified wrist, hand and finger(s), initial encounter (principal); X58.XXXA Exposure to other specified factors, initial encounter
CPT/HCPCS: 73130

== ENCOUNTER 2022-02-14 08:10 | Outpatient (CLI) | payer OTHER, SELFPAY ==
--- NOTE | ~2022-02-14 | XR_ITS ---
EXAMINATION: XR thoracic spine 3V DATE: 02/14/2022 08:29 INDICATION: Dorsalgia, unspecified. TECHNIQUE: 3 views of thoracic spine were obtained. COMPARISON: Chest 2 views 12/04/2021 FINDINGS: There is 18 degrees levoscoliosis of upper thoracic spine and 20 degrees dextroscoliosis of lower thoracic spine. There is mildly decreased T4 vertebral body height on the right. There is mild ly decreased T8 and T9 vertebral body heights on the left. There is mildly decreased disc height from T4-T5 through T8-T9. There are endplate osteophytes at multiple levels. Surgical clips in the right upper quadrant are likely from cholecystectomy. IMPRESSION: 1. Mild thoracic spondylosis. 2. Scoliosis. Reviewed, dictated and finalized at location A.
== END 2022-02-14 08:11 | disposition home or self-care (01) ==
LOC: ANHIMG 08:14
PROVIDERS: PCP Family Medicine; Visit Provider Physician Assistant
DX: M47.894 Other spondylosis, thoracic region (principal); M41.9 Scoliosis, unspecified
CPT/HCPCS: 72072

== ENCOUNTER 2022-06-23 15:38 | Outpatient (CLI) | payer OTHER, SELFPAY ==
--- NOTE | ~2022-06-23 | XR_ITS ---
XR abdomen/kub 1V 06/23/2022 15:50 Indication: Abdominal pain Procedure: KUB Comparison: 05/07/2021 Findings: Bowel gas pattern is nonobstructive. No abnormal calcifications overlying the kidneys. Ther e are cholecystectomy clips. No acute osseous abnormality. Impression: 1: Nonobstructive bowel gas pattern. Reviewed, dictated and finalized at location A. Impression: 1: Nonobstructive bowel gas pattern.
== END 2022-06-23 15:39 | disposition home or self-care (01) ==
PROVIDERS: PCP Family Medicine; Visit Provider Family Medicine
DX: R10.9 Unspecified abdominal pain (principal)
CPT/HCPCS: 74018

== ENCOUNTER 2022-08-06 18:05 | Emergency (ER) | payer OTHER, SELFPAY ==
--- NOTE | ~2022-08-06 | XR_ITS ---
EXAMINATION: XR chest 2V Exam Date/Time: 08/06/2022 18:32 CDT HISTORY: PROVIDER HEARD CRACKLES LT SIDE OF LUNG 08/06/22. Comparison: 12/04/2021. RESULT: Lines, tubes, and devices: None. Lungs and pleura: Clear. Cardiomediastinal silhouette: Stable. Other: No acute osseous or upper abdominal finding. IMPRESSION: No acute cardiopulmonary process. Reviewed, dictated and finalized at location K.
[2022-08-06 18:06] VITALS: BP 128/91; PULSE 94; RESP 20; TEMP 36.9; O2SAT 100
--- NOTE | 2022-08-06 18:10 | ED.URI ---
HPI - URI/Sore Throat General Chief Complaint: Upper Respiratory Infection Stated Complaint: cough congestion sinus pressure fatigue Time Seen by Provider: 08/06/22 18:22 Source: patient and RN notes reviewed Mode of arrival: ambulatory Limitations: no limitations History of Present Illness HPI Narrative: 32-year-old female presents with concern for cough and nasal drainage that started on Thursday. Reports she had exposure to influenza last week at work. She reports that the antibiotic she had fever body aches and chills. Reports those symptoms are improving. Reports the cough is persistent. She has been taking Mucinex and a nighttime cough medicine. She denies shortness of breath. Denies history of problems with breathing or asthma. She denies shortness of breath MD elicited complaint: cough Related Data Home Medications Medication Instructions Recorded Confirmed ofdoroi-xuebbzcapixic-ehvufnbc 250 1 tablet PO Q4-6H PRN Headache 03/29/21 08/06/22 mg-250 mg-65 mg tablet (Excedrin Migraine) cholecalciferol (vitamin D3) 50 50 mcg PO DAILY 01/27/22 08/06/22 mcg (2,000 unit) capsule mecobalamin (vitamin B12) 1,000 1,000 mcg PO DAILY 01/27/22 08/06/22 mcg chewable tablet prenat.vits,dewayne,nyx-dzhc-lwesz 1 tablet PO DAILY 02/10/22 Allergies Allergy/AdvReac Type Severity Reaction Status Date / Time No Known Allergies Allergy Verified 08/06/22 18:10 Review of Systems Review of Systems: CONSTITUTIONAL: Denies malaise, chills, sweats, or fever. EYES: Denies visual changes, redness, or discharge. ENT: Reports rhinorrhea, congestion. Denies sinus pain, otalgia and sore throat. CARDIOVASCULAR: Denies chest pain, palpitations, or edema. RESPIRATORY: Reports persistent cough. Denies dyspnea. GASTROINTESTINAL: Denies abdominal pain, nausea, vomiting, diarrhea SKIN: Denies rash or itching. MUSCULOSKELETAL: Denies myalgia. NEUROLOGIC: Denies headache. All systems reviewed & are unremarkable except as noted in HPI and below PMFSH Past Medical History Medical History Anxiety and depression Endometriosis Fracture of 5th metatarsal GERD (gastroesophageal reflux disease) Migraine Sciatica Scoliosis (spontaneous vaginal delivery) Surgical History Surgical History H/O dilation and curettage H/O laparoscopy Hx of cholecystectomy 03/27/21 Status post right foot surgery Family History Family History Father Hypertension Sibling Hypertension Anger Arthritis Mother IBS (irritable bowel syndrome) Arthritis Depression Grandparent Heart disease Diabetes mellitus Crohn's disease Daughter ADHD Social History Social History Second hand tobacco smoke exposure: No Alcohol intake: never Alcohol use details: rare Substance use: never Substance use type: does not use Gender identity (if verbalized by the patient): Female Sexual Orientation (if Verbalized by the Patient): Bisexual Spiritual care concerns: No Agree to blood products: Yes Comments At time of signature, agree with nursing past medical, surgical, social and family history. There is no relevant family history pertinent to the presenting complaint Exam Narrative: GENERAL: Well-appearing, well-nourished, and in no acute distress. HEAD: Normocephalic EYES: PERRLA, conjunctivae clear ENT: Nares clear, clear discharge. Mucous membranes moist. TM pearly gonzalez with sharp light reflex bilaterally; no tragal tenderness. Oropharynx not erythematous without lesions. Tonsils not enlarged and without exudate, no drooling, no hoarseness, no trismus, uvula midline. NECK: Supple. No lymphadenopathy CHEST: Scattered wheeze throughout, worse on the left, rhonchi on the left upper and lower lung noted breath sounds equal.
== END 2022-08-06 19:00 | disposition home or self-care (01) ==
PROVIDERS: Emergency Provider Nurse Practitioner; PCP Family Medicine
DX: J40 Bronchitis, not specified as acute or chronic (principal); N80.9 Endometriosis, unspecified; K21.9 Gastro-esophageal reflux disease without esophagitis; M41.9 Scoliosis, unspecified; F41.9 Anxiety disorder, unspecified; F32.A Depression, unspecified
CPT/HCPCS: 71046; 87804; 99213; G0463

== ENCOUNTER 2022-09-02 12:46 | Outpatient (CLI) | payer OTHER, SELFPAY ==
--- NOTE | ~2022-09-02 | XR_ITS ---
EXAM: XR foot RT min 3V DATE: 09/02/2022 13:08 HISTORY: M79.673 - Pain in unspecified foot . COMPARISON: 04/15/2018. FINDINGS: Normal mineralization. No fracture or dislocation. No lytic or blastic lesion. Mild hallux valgus and first MTP degenerative change. Cannulated screw fixation of the right fifth metatarsal, w ithout complication. Achilles and plantar enthesopathy. No erosion or periosteal change. Soft tissues within normal limits. IMPRESSION: No acute osseous finding in the right foot. No radiographic evidence of hardware-related complication. Reviewed, dictated and finalized at location K. IMPRESSION: No acute osseous finding in the right foot. No radiographic evidenc e of hardware-related complication.
== END 2022-09-02 12:47 | disposition home or self-care (01) ==
LOC: ANHIMG 12:50
PROVIDERS: PCP Family Medicine; Visit Provider Physician Assistant
DX: M79.673 Pain in unspecified foot (principal)
CPT/HCPCS: 73630

== ENCOUNTER 2022-09-03 02:06 | Day surgery (SDC) | payer OTHER, SELFPAY ==
[2022-08-27 14:03] VITALS: BMI 42.4
--- NOTE | 2022-08-27 14:09 | PC.NURSE ---
Report to the Outpatient Waiting Room, entrance under the green pavilion located off [facility], at time 1130_ on date 09/03/22_. OR Time: _1330. Time changes happen often and if your time is changed the preop area will call you the afternoon before. - You and your visitor will be asked to self-screen and do not enter if you have any COVID symptoms. - Only one visitor and NO children visitors are allowed at this time. - The patient visitor is requested to leave or wait in car when not with patient due to restrictions. - A mask is required within the hospital. Patients may have clear liquids (water, carbonated beverages, clear teas, apple juice) until 3 hours prior to surgery with a maximum of 20 ounces. - No food from midnight until time of surgery ( stop clear liquids by 1030 am) - Infants may have breast milk until 4 hours before surgery, formula 6 hours prior to surgery. - Children will be allowed to drink immediately following surgery. If applicable, please bring a bottle or sippy cup to assist with drinking. Juice, water, soda, and popsicles are readily available. For infants on formula, please bring formula the day of surgery. Pacifiers are allowed. Take the following medications with a SIP of water the morning of surgery: _none__ Medications to discontinue per physician __vitamins and supplements 3 days prior__ Date to take last dose Please no make-up, nail amharic, hairspray, perfume, deodorant, or body powder the day of surgery. No jewelry (including any body piercings) or valuables the day of surgery, leave them at home. Please take a shower or bath the night before, or the morning of, surgery with an antibacterial soap. Wear comfortable, loose fitting clothing. Children are encouraged to wear pajamas. - Jewelry must be removed prior to entering the operating room. Rings and piercings that are not removed may be cut off. - The hospital will not accept responsibility for valuables. - Please leave all valuables, including medications, at home the day of surgery. If you are going home after surgery, a licensed trash collector truck driver must drive you home. - NO public transportation without another adult. - We recommend that an adult stay with you for 24 hours following discharge. - We also recommend that you do not drive, make important decision, drink alcoholic beverages, or take any drugs that were not prescribed by your health care provider for at least 24 hours after your discharge time. For Pediatric surgeries, we recommend two adults accompany the child home (only one inside the building at this time). Follow any additional instructions given to you from your surgeon. If you or anyone in your household have experienced Covid symptoms in the past week, please notify your surgeon or the nurse liaison at the phone number below for possible testing. Telephone instructions given to _patient__and asked if any additional questions and then verbalized understanding. Patient advised to call surgeon office or pre surgery nurse liaison [phone] if any additional questions.
--- NOTE | 2022-09-02 14:24 | WPDANESEPPF ---
Anes - Initial Pre Proc Eval Procedure: Operation Date: 09/03/22 13:30 Proposed Procedures p Hysteroscopy Dilation and Curettage Winifred Endometrial Ablation - Delfino Cruz MD Date/Time: 09/02/22 14:24 Surgeon: Delfino Cruz MD Pre Op Diagnosis: irr. bleeding Patient Data Age: 32 Gender: F Height: 1.83 m Weight: 141.9 kg Allergies Allergy/AdvReac Type Severity Reaction Status Date / Time No Known Allergies Allergy Verified 08/06/22 18:10 Home Medications Medication Instructions Recorded Confirmed Type rtgktuv-vkjkfewumrfzf-zlvmqlha 250 1 tablet PO Q4-6H PRN Headache 03/29/21 08/27/22 History mg-250 mg-65 mg tablet (Excedrin Migraine) cholecalciferol (vitamin D3) 50 50 mcg PO DAILY 01/27/22 08/27/22 History mcg (2,000 unit) capsule mecobalamin (vitamin B12) 1,000 1,000 mcg PO DAILY 01/27/22 08/27/22 History mcg chewable tablet ferrous sulfate 325 mg (65 mg 325 mg PO DAILY #30 tabs 06/26/22 08/27/22 Rx iron) tablet pantoprazole 40 mg tablet,delayed 40 mg PO DAILY #30 tabs 06/26/22 08/27/22 Rx release fluoxetine 40 mg capsule 40 mg PO DAILY #30 caps 07/30/22 08/27/22 Rx Patient hx anesthesia problems: none Family hx anesthesia problems: none Results Review: All pre-operative results and documents have been reviewed as part of the pre-operative evaluation. FOR[facility]LY [facility] Past Medical History Medical History Anxiety and depression Endometriosis Fracture of 5th metatarsal GERD (gastroesophageal reflux disease) Migraine Morbid obesity Sciatica Scoliosis (spontaneous vaginal delivery) Surgical History Surgical History H/O dilation and curettage H/O laparoscopy Hx of cholecystectomy 03/27/21 Status post right foot surgery Family History Family History Father Hypertension Sibling Hypertension Anger Arthritis Mother IBS (irritable bowel syndrome) Arthritis Depression Grandparent Heart disease Diabetes mellitus Crohn's disease Daughter ADHD Social History Social History Smoking status: Never smoker Second hand tobacco smoke exposure: No Alcohol intake: never Alcohol use details: rare Substance use: never Substance use type: does not use Living arrangements: with friend(s) Gender identity (if verbalized by the patient): Female Sexual Orientation (if Verbalized by the Patient): Bisexual Spiritual care concerns: No Agree to blood products: Yes Anes - Eval Final PreProcedure Day of Procedure 09/02/22 14:24 Patient weight: morbidly obese Heart: regular rate and rhythm Lungs: clear to auscultation and normal air movement Airway: Mallampati scale class II Neurological: alert and oriented Last oral intake: >/= 8 hours ASA classification: III Emergent: no Anesthetic plan: proceed Anesthesia type and monitoring: general GIVS and LMA and standard monitoring Results Review: All pre-operative results and documents have been reviewed as part of the pre-operative evaluation. Informed Consent: The patient's anesthetic plan and its attendant risks and benefits were discussed with the patient/family/POA. Questions were solicited and answers provided to the satisfaction of the patient/family/POA.
[2022-09-03] MEDS: ACETAMINOPHEN 500 MG TABLET 1000 MG PO (11:34)
[2022-09-03 11:56] VITALS: BP 131/75; PULSE 78; RESP 16; TEMP 36.6; O2SAT 100
[2022-09-03] MEDS: LACTATED RINGERS 1,000 ML 30 ML IV CONT (11:56)
--- NOTE | 2022-09-03 11:56 | PM.IMHP ---
H&P: HPI History of Present Illness Date/Time: 09/03/22 11:56 Chief Complaint: Heavy periods Narrative: 32 y/o with heavy menses every 24 days lasting 7 days each. She is in a same sex relationship and does not need contraception. She has tried several different oral contraceptives, but they worsened her headaches. Review of Systems Review of Systems: All systems reviewed & are unremarkable except as noted in HPI and below PMFSH Past Medical History Medical History Anxiety and depression Endometriosis Fracture of 5th metatarsal GERD (gastroesophageal reflux disease) Migraine Morbid obesity Sciatica Scoliosis (spontaneous vaginal delivery) Surgical History Surgical History H/O dilation and curettage H/O laparoscopy Hx of cholecystectomy 03/27/21 Status post right foot surgery Family History Family History Father Hypertension Sibling Hypertension Anger Arthritis Mother IBS (irritable bowel syndrome) Arthritis Depression Grandparent Heart disease Diabetes mellitus Crohn's disease Daughter ADHD Social History Social History Smoking status: Never smoker Second hand tobacco smoke exposure: No Alcohol intake: never Alcohol use details: rare Substance use: never Substance use type: does not use Living arrangements: with friend(s) Gender identity (if verbalized by the patient): Female Sexual Orientation (if Verbalized by the Patient): Bisexual Spiritual care concerns: No Agree to blood products: Yes Meds Home Medications and Allergies Home Medications Medication Instructions Recorded Confirmed Type icnijdz-gugduwzilrdvp-jcdrqgps 250 1 tablet PO Q4-6H PRN Headache 03/29/21 08/27/22 History mg-250 mg-65 mg tablet (Excedrin Migraine) cholecalciferol (vitamin D3) 50 50 mcg PO DAILY 01/27/22 08/27/22 History mcg (2,000 unit) capsule mecobalamin (vitamin B12) 1,000 1,000 mcg PO DAILY 01/27/22 08/27/22 History mcg chewable tablet ferrous sulfate 325 mg (65 mg 325 mg PO DAILY #30 tabs 06/26/22 08/27/22 Rx iron) tablet pantoprazole 40 mg tablet,delayed 40 mg PO DAILY #30 tabs 06/26/22 08/27/22 Rx release fluoxetine 40 mg capsule 40 mg PO DAILY #30 caps 07/30/22 08/27/22 Rx Allergies Allergy/AdvReac Type Severity Reaction Status Date / Time No Known Allergies Allergy Verified 08/06/22 18:10 Exam Const: Orientation/consciousness: patient oriented x3 Other: Well-developed, well-nourished female in no acute distress. Neck: Thyroid: thyroid normal Lymphatic: no lymphadenopathy noted (in neck, axilla or inguinal nodes) Resp: Effort & Inspection: normal respiratory effort Auscultation: clear to auscultation bilaterally Cardio: Rate: regular rate Rhythm: regular rhythm Heart sounds: S1 normal heart sound present and S2 normal heart sound present GI: Other: ABD: Soft, nontender, nondistended. No guarding or rebound tenderness. No hepatosplenomegaly. : General: Yes no CVA tenderness Other: External genitalia: normal female hair distribution, without lesion. Urethral meatus: no lesion, non prolapsed. Bladder: no mass, nontender Vagina: well-estrogenized, without lesion or discharge. No cystocele or rectocele. Cervix: no lesion or discharge. Uterus: small, anteverted, freely mobile, nontender Adnexa: no mass or tenderness. Anus/perineum: no lesions, nontender Back/Spine/Pelvis: Back: no CVA tenderness Skin: General skin exam: normal color and no rashes or lesions noted Neuro: General: patient oriented x3 Extrem: Other: Extremities: nontender with no edema Psych: Mental Status: mental status grossly normal Affect: normal affect Assessment and Plan Assessment and plan (1) Menometrorrha
--- NOTE | 2022-09-03 13:28 | SUR.PREOP ---
Discussed delay with patient. Voices understanding.
--- NOTE | 2022-09-03 14:12 | WPDHPUPDATE1 ---
History and Physical Update Update Date/Time: 09/03/22 14:12 History and Physical has been reviewed, including an updated exam of the patient. There are NO changes in the patient's condition. Risks, benefits, and alternatives have been discussed and questions answered. Patient agrees to proceed with procedure.
[2022-09-03] MEDS: LIDOCAINE HCL 1% PF 30 ML VIAL 10 ML INFILTRATE (14:34)
--- NOTE | 2022-09-03 14:58 | W.PM.PROC2 ---
Procedure Note - Detailed Date of Procedure 09/03/22 Pre-op Diagnosis Menometrorrhagia Post-op Diagnosis Same Procedure Performed Hysteroscopy Dilation and sharp curettage Endometrial ablation Surgeon Delfino Cruz MD Anesthesia MAC and Local (1% lidocaine paracervical block) Findings Uterus sounded to a depth of 8.5 cm with a cervical length of 3 cm, giving a subtracted endometrial cavity length of 5.5 cm. Both tubal ostia were seen. The endometrial cavity was unremarkable. Description of Procedure The patient was taken to the operating room where she was prepared and draped in the usual sterile fashion in the dorsal lithotomy position. The bladder was drained with a red rubber catheter. A sterile speculum was placed into the vagina. The anterior lip of the cervix was grasped with single-tooth tenaculum. Ten mL of 1% lidocaine was administered in a paracervical block. The cervix was then gently dilated using Hegar dilators until an 8 mm dilator could be passed. Hysteroscopy was performed using sterile saline as a distention medium. Findings are as noted above. Sharp curettage was then performed, and endometrial curettings were collected on a Telfa pad and passed off to be sent to pathology. Finally, the the Winifred device was advanced and endometrial ablation commenced without difficulty. The device was withdrawn and a second look was taken using the hysteroscope. Excellent coverage of the endometrial cavity was noted. The tenaculum was removed. Hemostasis was excellent. Sponge, lap, needle and instrument counts were correct. The patient was awakened and taken to the recovery room in stable condition. I was present and scrubbed through the entire procedure. Implants None Estimated Blood Loss 5 Drains No Packing No Pathology Yes (Endometrial curettings) Complications None Condition Stable Disposition PACU
[2022-09-03 15:04] VITALS: BP 126/68; PULSE 71; RESP 14; O2SAT 98
[2022-09-03 15:30] VITALS: BP 121/76; PULSE 60; RESP 16
[2022-09-03] MEDS: oxyCODONE HCL (*CRX) 5 MG TAB IR PO (15:42)
[2022-09-03 16:00] VITALS: BP 134/82; PULSE 65; RESP 18
== END 2022-09-03 16:02 | disposition home or self-care (01) ==
PROVIDERS: PCP Family Medicine; Visit Provider Obstetrics & Gynecology
PROC: 0U5B8ZZ Destruction of Endometrium, Via Natural or Artificial Opening Endoscopic (ICD-10-PCS; CPT 58563; principal; 2022-09-03 13:30)
DX: N92.1 Excessive and frequent menstruation with irregular cycle (principal); F41.9 Anxiety disorder, unspecified; F32.A Depression, unspecified; K21.9 Gastro-esophageal reflux disease without esophagitis; M41.9 Scoliosis, unspecified; M54.30 Sciatica, unspecified side; Z79.82 Long term (current) use of aspirin; E66.01 Morbid (severe) obesity due to excess calories; Z68.41 Body mass index [BMI] 40.0-44.9, adult
CPT/HCPCS: 58563; 88305; A9270; J1100; J1885; J2250; J2405; J2704; J3010; J7120

== ENCOUNTER 2022-10-21 12:40 | Outpatient (CLI) | payer OTHER, SELFPAY ==
--- NOTE | ~2022-10-21 | XR_ITS ---
XR knee LT 3V 10/21/2022 13:00 Indication: Left knee pain Procedure: 3 views left knee Comparison: No prior studies for comparison. Findings: No fracture or traumatic malalignment. There is an unfused tibial apophysis. No significant joint effusion. No foreign bodies. There is anatomic Impression: 1: No acute abnormality of the left knee. Reviewed, dictated and finalized at location B. EGNATING TANK OPERATOR Impression: 1: No acute abnormality of the left knee.
--- NOTE | ~2022-10-21 | XR_ITS ---
XR knee RT 3V 10/21/2022 13:00 Indication: Right knee pain Procedure: 3 views right knee Comparison: No prior studies for comparison. Findings: No fracture, subluxation or dislocation. There is mild patellofemoral compartment osteoarth ritis. No significant joint effusion. No foreign bodies. Impression: 1: Mild patellofemoral compartment osteoarthritis. Reviewed, dictated and finalized at location B. K STENOGRAPHER Impression: 1: Mild patellofemoral compartment osteoarthritis.
== END 2022-10-21 12:41 | disposition home or self-care (01) ==
PROVIDERS: PCP Family Medicine; Visit Provider Physician Assistant
DX: M17.11 Unilateral primary osteoarthritis, right knee (principal); M25.562 Pain in left knee
CPT/HCPCS: 73562

== ENCOUNTER 2022-11-07 10:41 | Outpatient (CLI) | payer OTHER, SELFPAY ==
--- NOTE | ~2022-11-07 | XR_ITS ---
EXAMINATION: XR abdomen/kub 1V INDICATION: Hematuria TECHNIQUE: Supine views of the abdomen were obtained on 2 radiographs. COMPARISON: 06/23/2022 FINDINGS: The bowel gas pattern is normal. No dilated loops of bowel are evident. The visualized osse ous structures are unremarkable. No suspected urolithiasis identified. IMPRESSION: 1. No radiographic correlate for the patient's symptoms. Reviewed, dictated and finalized at location A. TRUCTION SCHEDULER
== END 2022-11-07 10:42 | disposition home or self-care (01) ==
PROVIDERS: PCP Physician Assistant; Visit Provider Physician Assistant
DX: R31.9 Hematuria, unspecified (principal)
CPT/HCPCS: 74018

== ENCOUNTER 2022-11-15 10:02 | Outpatient (CLI) | payer OTHER, SELFPAY ==
--- NOTE | ~2022-11-15 | CT_ITS ---
Non-contrast CT scan of the Abdomen and Pelvis Clinical indication: Kidney stone Technique: 5 mm axial scans were obtained through the abdomen and pelvis without intravenous or oral contrast. Dose reduction technique was used on this scan by utilizing automated exposure control and iterative reconstruction technique. The dose-length product (DLP) was 1120.20 mGy-cm. Findings: Images through the lung bases reveal no abnormalities. There is no evidence of renal or ureteral calculi. The kidneys and the ureters are nondilated. The liver, spleen, pancreas, and adrenals appear normal. Cholecystectomy clips noted. There is no aor tic aneurysm. There is no evidence of bowel obstruction. No evidence of ileus appendicitis. Images through the pelvis were performed. There is no evidence of ascites or lymphadenopathy. Urinary bladder unremarkable. No definite adnexal mass seen. Impression: Unremarkable exam. No renal, ureteral, or bladder stone seen. Reviewed, dictated and finalized at location [] HOME HEALTH Impression: Unremarkable exam. No renal, ureteral, or bladder stone seen.
== END 2022-11-15 10:03 | disposition home or self-care (01) ==
LOC: ANHIMG 10:06
PROVIDERS: PCP Physician Assistant; Visit Provider Physician Assistant
DX: N20.0 Calculus of kidney (principal)
CPT/HCPCS: 74176

== ENCOUNTER 2023-01-14 15:48 | Outpatient (CLI) | payer OTHER, SELFPAY ==
[2023-01-14 16:37] LABS: Influenza A QL RT-PCR Negative (Negative); Influenza B QL RT-PCR Negative (Negative); RSV RNA, RT-PCR Negative (Negative); SARS-CoV-2 RNA PCR Negative
== END 2023-01-14 15:49 | disposition home or self-care (01) ==
LOC: ANHLAB 15:49
PROVIDERS: PCP Family Medicine; Visit Provider Physician Assistant
DX: R50.9 Fever, unspecified (principal); Z20.822 Contact with and (suspected) exposure to COVID-19
CPT/HCPCS: 87637

== ENCOUNTER 2023-01-29 16:52 | Outpatient (CLI) | payer OTHER, SELFPAY ==
[2023-01-29 17:22] LABS: Basophils Percent Auto 0.8 % (0.2-1.2); Eosinophils Absolute Auto 0.2 K/mm3 (0-0.3); Eosinophils Percent Auto 3.8 % (0-4.4); Hematocrit 39.7 % (37.0-47.0); Hemoglobin 12.9 g/dL (12.0-15.0); Immature Granulocyte Absolute 0.01 K/mm3 (0.00-0.031); Immature Granulocyte Percent A 0.2 % (0-0.5); Lymphocytes Percent Auto 32.1 % (18.3-44.2); Mean Corpuscular HGB Conc 32.5 g/dl (32-36); Mean Corpuscular Hemoglobin 29.3 pg (26-34); Mean Corpuscular Volume 90.2 fl (80-100); Mean Platelet Volume 9.9 fl (7.4-10.4); Monocytes Absolute Auto 0.5 K/mm3 (0.1-0.6); Neutrophils Absolute Auto 2.6 K/mm3 (1.3-6.7); Neutrophils Percent Auto 53.1 % (45.5-73.1); Platelet Count Result 228 k/mm3 (150-375); Red Cell Distribution Width 12.5 % (11.5-14.5)
[2023-01-29 17:38] LABS: Urine Cotinine NEGATIVE
[2023-01-29 17:44] LABS: Parathyroid Intact 48.1 pg/mL (7.5-53.5)
[2023-01-29 18:39] LABS: Alanine Aminotransferase 34 U/L (6-35); Albumin Level 4.4 g/dL (3.5-5.1); Alkaline Phosphatase 83 U/L (38-126); Anion Gap 6 mmol/L (8-16); Aspartate Amino Transferase 23 U/L (14-36); Bilirubin,Total 0.5 mg/dL (0.2-1.3); Blood Urea Nitrogen 12 mg/dL (7-17); Calcium 9.2 mg/dL (8.4-10.2); Carbon Dioxide 27 mmol/L (22-30); Chloride 104 mmol/L (98-107); Cholesterol 171 mg/dL (0-200); Estimated Glomerular Filt Rate > 60; Glucose 87 mg/dL (65-110); HDL Direct 42 mg/dL; Hemoglobin A1C 5.1 % (<5.7); Potassium 4.5 mmol/L (3.4-5.0); Sodium 137 mmol/L (137-145); Triglycerides 145 mg/dL (<150)
[2023-01-29 18:51] LABS: LDL Cholesterol Direct 85 mg/dL
[2023-01-29 18:56] LABS: Vitamin D 25 Hydroxy 37.6 ng/mL
[2023-01-29 19:33] LABS: Iron 56 ug/dL (37-170)
[2023-01-29 19:40] LABS: Percent Iron Saturation 15 % (20-50)
[2023-01-31 23:09] LABS: H pylori, Urea Breath NOT DETECTED (NOT DETECTED)
== END 2023-01-29 16:53 | disposition home or self-care (01) ==
LOC: ANHLAB 16:56
PROVIDERS: PCP Family Medicine; Visit Provider Nurse Practitioner Adult Health
DX: E66.01 Morbid (severe) obesity due to excess calories (principal); M17.0 Bilateral primary osteoarthritis of knee; I10 Essential (primary) hypertension; Z68.41 Body mass index [BMI] 40.0-44.9, adult
CPT/HCPCS: 80053; 80061; 80307; 82306; 82607; 82728; 83013; 83036; 83540; 83550; 83970; 84443; 85025

== ENCOUNTER 2023-02-06 15:40 | Outpatient (CLI) | payer OTHER, SELFPAY ==
--- NOTE | 2023-02-06 | ECG_ITS ---
Measurements Intervals [place] Rate: 61 P: 50 NE: 140 QRS: 70 QRSD: 96 T: 68 QT: 388 QTc: 392 Interpretive Statements SINUS RHYTHM NORMAL ECG NO PREVIOUS ECG AVAILABLE FOR COMPARISON Electronically Signed On 02-06-2023 16:51:35 SENIOR TECHNICAL SUPPORT ENGINEER by Sal Allison D.O.
== END 2023-02-06 15:41 | disposition home or self-care (01) ==
PROVIDERS: PCP Family Medicine; Visit Provider Nurse Practitioner Adult Health
DX: M17.0 Bilateral primary osteoarthritis of knee (principal); Z68.41 Body mass index [BMI] 40.0-44.9, adult; E66.01 Morbid (severe) obesity due to excess calories; I10 Essential (primary) hypertension
CPT/HCPCS: 93005

== ENCOUNTER 2023-03-13 08:28 | Emergency (ER) | payer OTHER, SELFPAY ==
[2023-03-13] VITALS (9 sets, daily range): BP systolic 120–143; BP diastolic 69–102; PULSE 73–100; RESP 18; TEMP 36.6; O2SAT 99–100
--- NOTE | ~2023-03-13 | CT_ITS ---
EXAMINATION: CT abdomen pelvis w con DATE: 03/13/2023 09:49 INDICATION: Nausea, vomiting and diarrhea TECHNIQUE: Computed tomography (CT) of the abdomen and pelvis was performed with 100 cc Omnipaque 350 intravenous contrast. The dose-length product was 1632.73 mGy-cm. Automated exposure control and ite rative reconstruction technique were employed. COMPARISON: CT dated 11/15/2022. FINDINGS: Lung bases are unremarkable. No significant pleural or pericardial effusion. Heart size nor mal. No significant vascular abnormality. Retroaortic left renal vein. No lymphadenopathy. Nonobstruc tive bowel gas pattern. Status post cholecystectomy. The liver, spleen, pancreas, adrenal glands and kidneys are unremarkable . Nonobstructive bowel pattern. Normal appendix. There is a 3.2 x 2.1 cm left adnexal cyst, most like ly ovarian. No acute bone or joint abnormality. No focal lytic or blastic lesions. No hydronephrosis. IMPRESSION: 1. No acute abdominal abnormality. 2: Left adnexal cyst measuring 3.2 cm, likely ovarian. Reviewed, dictated and finalized at location B.
[2023-03-13 08:56] LABS: Basophils Percent Auto 0.9 % (0.2-1.2); Eosinophils Absolute Auto 0.1 K/mm3 (0-0.3); Eosinophils Percent Auto 2.4 % (0-4.4); Hematocrit 42.4 % (37.0-47.0); Hemoglobin 14.2 g/dL (12.0-15.0); Lymphocytes Absolute Auto 1.35 K/mm3 (0.9-3.2); Lymphocytes Percent Auto 40.4 % (18.3-44.2); Mean Corpuscular HGB Conc 33.5 g/dl (32-36); Mean Corpuscular Hemoglobin 29.2 pg (26-34); Mean Corpuscular Volume 87.1 fl (80-100); Mean Platelet Volume 9.9 fl (7.4-10.4); Monocytes Absolute Auto 0.5 K/mm3 (0.1-0.6); Neutrophils Absolute Auto 1.4 K/mm3 (1.3-6.7); Neutrophils Percent Auto 41.3 % (45.5-73.1); Platelet Count Result 219 k/mm3 (150-375); Red Blood Count 4.87 M/mm3 (4.2-5.4); Red Cell Distribution Width 12.1 % (11.5-14.5); White Blood Count 3.3 K/mm3 (4.5-10.0)
[2023-03-13 09:06] LABS: Alanine Aminotransferase 50 U/L (6-35); Albumin Level 4.4 g/dL (3.5-5.1); Alkaline Phosphatase 95 U/L (38-126); Anion Gap 6 mmol/L (8-16); Aspartate Amino Transferase 45 U/L (14-36); Bilirubin,Total 0.8 mg/dL (0.2-1.3); Blood Urea Nitrogen 9 mg/dL (7-17); Calcium 8.8 mg/dL (8.4-10.2); Carbon Dioxide 29 mmol/L (22-30); Chloride 102 mmol/L (98-107); Estimated CRCL calculation 120 ml/min; Estimated Glomerular Filt Rate > 60; Glucose 96 mg/dL (65-110); Lipase 85 U/L (23-300); Sodium 137 mmol/L (137-145)
--- NOTE | 2023-03-13 09:36 | ED.NAVMDI ---
HPI - Nausea/Vomiting/Diarrhea General Chief complaint: Nausea/Vomiting/Diarrhea Stated complaint: nausea vomiting diarrhea Time Seen by Provider: 03/13/23 09:03 History of Present Illness HPI Narrative: 32-year-old female with a history of migraines, cholecystectomy, laparoscopy, endometrial ablation reports for evaluation of nausea, vomiting, diarrhea x4 days. Patient reports approximately 3 episodes of diarrhea per hour for the past 4 days with 1-3 episodes of vomiting per day. States she had generalized abdominal cramping and pain yesterday, that has since resolved. Patient complaining of body aches and reports she has had difficulty staying hydrated and eating the past few days. She is also complaining of a frontal headache, slow in onset, not the worst headache of her life and similar to previous migraines. She denies cough, congestion, fever, hematemesis, melena, hematochezia, mucus in stool, urinary complaints, vision changes, focal numbness or weakness. She reports vaginal spotting which is normal for her around the time of her period since she had her uterine ablation in July 2022. Denies recent travel, camping, hospitalizations, and antibiotic use. Related Data Home Medications Medication Instructions Recorded Confirmed lvaabmo-ipxentigqlquo-oemilluc 250 1 tablet PO Q4-6H PRN Headache 03/29/21 01/22/23 mg-250 mg-65 mg tablet (Excedrin Migraine) cholecalciferol (vitamin D3) 50 50 mcg PO DAILY 01/27/22 01/22/23 mcg (2,000 unit) capsule mecobalamin (vitamin B12) 1,000 1,000 mcg PO DAILY 01/27/22 01/22/23 mcg chewable tablet Allergies Allergy/AdvReac Type Severity Reaction Status Date / Time No Known Allergies Allergy Verified 03/13/23 08:43 Review of Systems Review of Systems: CONSTITUTIONAL: Denies fever, chills EYES: Denies visual changes, redness, or discharge. ENT: Denies rhinorrhea, congestion, sore throat, or otalgia. CARDIOVASCULAR: Denies chest pain, palpitations, or edema. RESPIRATORY: Denies cough or dyspnea. GASTROINTESTINAL: See HPI GENITOURINARY: Denies dysuria or hematuria. SKIN: Denies rash or itching. MUSCULOSKELETAL: Denies back pain, joint pain, or myalgia. NEUROLOGIC: Denies numbness, dizziness, or weakness. PSYCHIATRIC: Denies anxiety or depression. [facility] Past Medical History Medical History Anxiety and depression Endometriosis Fracture of 5th metatarsal GERD (gastroesophageal reflux disease) Migraine Morbid obesity Sciatica Scoliosis (spontaneous vaginal delivery) Surgical History Surgical History H/O dilation and curettage H/O laparoscopy History of endometrial ablation Hx of cholecystectomy 03/27/21 Status post right foot surgery Family History Family History Father Hypertension Sibling Hypertension Anger Arthritis Mother IBS (irritable bowel syndrome) Arthritis Depression Grandparent Heart disease Diabetes mellitus Crohn's disease Daughter ADHD Social History Social History Smoking status: Never smoker Second hand tobacco smoke exposure: No Alcohol intake: never Alcohol use details: rare Substance use: never Substance use type: does not use Lack of Transportation: No Lack of Food: Never True Current Housing: I Have Housing Concerned About Future Housing: No Difficulty Paying Gas/Electric Bills: No Difficulty Paying for Meds: No Currently Unemployed: No Education: Trade/Vocational Certificate Difficulty w/ Childcare or Family Care: No Living arrangements: with friend(s) Occupation/Education: occupation Gender identity (if verbalized by the patient): Female Sexual Orientation (if Verbalized by the Patient): Bisexual Spiritual care concerns: No Agree to blood product
[2023-03-13 09:51] LABS: Appearance Urine Cloudy (Clear); Bacteria Urine Rare /hpf; Bilirubin Urine 2+ (Negative); Blood Urine 2+ (Negative); Color Urine Dark Yellow (Yellow); Glucose Urine UA Negative (Negative); Ketones Urine 1+ mg/dL (Negative); Leukocyte Esterase Ur Trace LEU/UL (Negative); Mucus Urine Present /lpf; Nitrate Urine Negative (Negative); Protein Urine 2+ mg/dL (Negative); RBC Urine 21-50 /hpf (0-2); Specific Grav Ur 1.025 (1.001-1.035); Squamous Epithelial Cell Urine Few /hpf (Few); WBC Urine 21-50 /hpf
[2023-03-13] MEDS: ONDANSETRON INJ 4 MG/2 ML VIAL IV PUSH (09:51)
[2023-03-13] MEDS: PROCHLORPERAZINE EDISYLATE 10 MG/2 ML VIAL IM (09:51)
[2023-03-13] MEDS: diphenhydrAMINE HCl INJ 50 MG/ML VIAL 25 MG IV PUSH (09:52)
[2023-03-13] MEDS: KETOROLAC 30 MG/ML VIAL (*BKC) IV PUSH (09:53)
[2023-03-13] MEDS: SODIUM CHLORIDE 0.9% IV 1,000 ML 999 ML IV CONT ×2 (09:53→10:22)
--- NOTE | 2023-03-13 10:06 | ECG_ITS ---
Measurements Intervals [place] Rate: 75 P: 14 ND: 136 QRS: 46 QRSD: 94 T: 41 QT: 361 QTc: 404 Interpretive Statements SINUS RHYTHM BASELINE ARTIFACT RSR' V1, CONSIDER NORMAL VARIANT NORMAL ECG COMPARED TO ECG 02/06/2023 16:19:05 NO SIGNIFICANT CHANGES Electronically Signed On 03-13-2023 16:49:18 CDT by Homero Restrepo M.D.
[2023-03-13 10:11] LABS: Add Urine Microscopic? YES
[2023-03-13] MEDS: POTASSIUM CHLORIDE 20 MEQ PACKET (FOR LIQUID) 40 MEQ PO (10:15)
[2023-03-13 10:19] LABS: Lactic Acid Reflex 0.6 mmol/L (0.7-2.0)
[2023-03-13 10:44] LABS: Influenza A QL RT-PCR Negative (Negative); Influenza B QL RT-PCR Negative (Negative); SARS-CoV-2 RNA PCR Negative
== END 2023-03-13 12:45 | disposition home or self-care (01) ==
PROVIDERS: Emergency Medicine; Emergency Provider Physician Assistant; PCP Family Medicine
DX: K52.9 Noninfective gastroenteritis and colitis, unspecified (principal); N30.01 Acute cystitis with hematuria; N94.89 Other specified conditions associated with female genital organs and menstrual cycle; E87.6 Hypokalemia; N80.9 Endometriosis, unspecified; K21.9 Gastro-esophageal reflux disease without esophagitis; E66.01 Morbid (severe) obesity due to excess calories; Z68.41 Body mass index [BMI] 40.0-44.9, adult; Z90.49 Acquired absence of other specified parts of digestive tract
CPT/HCPCS: 36415; 74177; 80053; 81001; 81025; 83605; 83690; 83735; 85025; 87086; 87636; 93005; 96361; 96365; 96372; 96375; 99284; A9270; J0696; J0780; J1200; J1885; J2405; J7030; Q9967

== ENCOUNTER 2023-05-01 12:07 | Outpatient (CLI) | payer OTHER, SELFPAY ==
--- NOTE | ~2023-05-01 | US_ITS ---
US breast RT complete DATE: 05/01/2023 12:47 INDICATION: Intermittent burning sensation throughout the breast TECHNIQUE: Real-time imaging of all 4 quadrants and subareolar area COMPARISON: None FINDINGS: No suspicious mass or shadowing, cyst or other significant sonographic abnormality of the r ight breast is detected. IMPRESSION: BI-RADS Category 1: Negative Recommendation: Routine mammographic screening beginning at age 40 Reviewed, dictated and finalized at Location A. Reviewed, dictated and finalized at location A.
== END 2023-05-01 12:08 | disposition home or self-care (01) ==
PROVIDERS: PCP Family Medicine; Visit Provider Physician Assistant
DX: N64.4 Mastodynia (principal)
CPT/HCPCS: 76641

== ENCOUNTER 2023-07-06 13:09 | Outpatient (CLI) | payer OTHER, SELFPAY ==
[2023-07-06 14:33] LABS: Influenza A QL RT-PCR Negative (Negative); Influenza B QL RT-PCR Negative (Negative); RSV RNA, RT-PCR Negative (Negative); SARS-CoV-2 RNA PCR Negative (Negative)
== END 2023-07-06 13:10 | disposition home or self-care (01) ==
LOC: ANHLAB 13:11
PROVIDERS: PCP Family Medicine; Visit Provider Family Medicine
DX: J06.9 Acute upper respiratory infection, unspecified (principal); Z20.822 Contact with and (suspected) exposure to COVID-19
CPT/HCPCS: 87637

== ENCOUNTER 2023-08-14 11:35 | Emergency (ER) | payer OTHER, SELFPAY ==
--- NOTE | ~2023-08-14 | XR_ITS ---
EXAMINATION: XR tibia fibula RT 2V DATE: 08/14/2023 12:36 INDICATION: Right lower leg injury and pain. TECHNIQUE: 2 views of right tibia and fibula on 4 radiographs were obtained. COMPARISON: Right knee radiographs 10/21/2022 FINDINGS: Bone alignment is normal. No fracture. There is a screw in fifth metatarsal. There is mild right knee osteoarthritis. There is ankle soft tissue swelling. IMPRESSION: 1. No fracture. Reviewed, dictated and finalized at location A. IMPRESSION: 1. No fracture.
[2023-08-14 11:55] VITALS: BP 125/96; PULSE 98; RESP 16; TEMP 36.9; O2SAT 100
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
== END 2023-08-14 13:48 | disposition home or self-care (01) ==
PROVIDERS: Emergency Provider Registered Nurse; PCP Nurse Practitioner Family
DX: S80.11XA Contusion of right lower leg, initial encounter (principal); S80.12XA Contusion of left lower leg, initial encounter; V49.40XA Driver injured in collision with unspecified motor vehicles in traffic accident, initial encounter; N80.9 Endometriosis, unspecified; K21.9 Gastro-esophageal reflux disease without esophagitis; M41.9 Scoliosis, unspecified; E66.01 Morbid (severe) obesity due to excess calories; Z68.41 Body mass index [BMI] 40.0-44.9, adult; F41.9 Anxiety disorder, unspecified; F32.A Depression, unspecified
CPT/HCPCS: 73590; 99213; G0463

== ENCOUNTER 2023-09-25 01:41 | Day surgery (SDC) | payer OTHER, SELFPAY ==
[2023-09-16 10:39] VITALS: BMI 44.7
--- NOTE | 2023-09-16 10:44 | PC.NURSE ---
Report to the Outpatient Waiting Room, entrance under the green pavilion located off [facility], at time 0930 on date 09/25/23. Planned Procedure Time: 1130. Time changes happen often and if your time is changed the preop area will call you the afternoon before. - You and your visitor will be asked to self-screen and do not enter if you have any COVID symptoms. - A mask is optional within the hospital at this time. Patients may have clear liquids (water, carbonated beverages, clear teas, apple juice) until 3 hours prior to surgery with a maximum of 20 ounces. - No food from midnight until time of surgery Take the following medications with a SIP of water the morning of surgery: TRAMADOL IF NEEDED DO NOT STOP ANY OF YOUR OTHER PRESCRIPTION MEDICATIONS PRIOR TO SURGERY ?EXCEPT THE FOLLOWING Medications to discontinue per physician: EXCEDRIN MIGRAINE (WITH ASPIRIN) Date to take last dose: PER DR. TAYLOR Please no make-up, nail v[place] citizen, hairspray, perfume, deodorant, or body powder the day of surgery. No jewelry (including any body piercings) or valuables the day of surgery, leave them at home. Please take a shower or bath the night before, or the morning of, surgery with an antibacterial soap. Wear comfortable, loose fitting clothing. - Jewelry must be removed prior to entering the operating room. Rings and piercings that are not removed may be cut off. - The hospital will not accept responsibility for valuables. - Please leave all valuables, including medications, at home the day of surgery. If you are going home after surgery, a licensed driver helper must drive you home. - NO public transportation without another adult if you receive anesthesia. - We recommend that an adult stay with you for 24 hours following discharge. - We also recommend that you do not drive, make important decision, drink alcoholic beverages, or take any drugs that were not prescribed by your health care provider for at least 24 hours after your discharge time. Follow any additional instructions given to you from your surgeon. If you or anyone in your household have experienced Covid symptoms in the past week, please notify your surgeon or the nurse liaison at the phone number below for possible testing. Telephone instructions given to PT - JANI REMY and asked if any additional questions and then verbalized understanding. Patient advised to call surgeon office or pre surgery nurse liaison [phone] if any additional questions.
--- NOTE | 2023-09-24 17:10 | PM.IMHP ---
H&P: HPI History of Present Illness Date/Time: 09/24/23 17:10 Chief Complaint: Recurrent tonsillitis chronic tonsillitis tonsillar hypertrophy Narrative: planned procedure Review of Systems Review of Systems: All systems reviewed & are unremarkable except as noted in HPI and below PMFSH Past Medical History Medical History Anxiety and depression Endometriosis Fracture of 5th metatarsal GERD (gastroesophageal reflux disease) Migraine Morbid obesity Sciatica Scoliosis (spontaneous vaginal delivery) Surgical History Surgical History H/O dilation and curettage H/O laparoscopy History of endometrial ablation Hx of cholecystectomy 03/27/21 Status post right foot surgery Family History Family History Father Hypertension Sibling Hypertension Anger Arthritis Mother IBS (irritable bowel syndrome) Arthritis Depression Grandparent Heart disease Diabetes mellitus Crohn's disease Daughter ADHD Social History Social History Smoking status: Never smoker Second hand tobacco smoke exposure: No Alcohol intake: current Alcohol use details: VERY RARE Substance use: current Substance use type: marijuana Other substance usage details: VERY RARE Lack of Transportation: No Lack of Food: Never True Current Housing: I Have Housing Concerned About Future Housing: No Difficulty Paying Gas/Electric Bills: No Difficulty Paying for Meds: No Currently Unemployed: No Education: Trade/Vocational Certificate Difficulty w/ Childcare or Family Care: No Living arrangements: with family Occupation/Education: occupation Gender identity (if verbalized by the patient): Female Sexual Orientation (if Verbalized by the Patient): Bisexual Spiritual care concerns: No Agree to blood products: Yes Meds Home Medications and Allergies Home Medications Medication Instructions Recorded Confirmed Type izfeveb-lathwqlspdvnd-ubpcxjqd 250 1 tablet PO Q4-6H PRN Headache 03/29/21 09/16/23 History mg-250 mg-65 mg tablet (Excedrin Migraine) aezekwcqjw-muhynfxblqquv-zkpdtbbl 1 cap PO Q8H PRN headache #20 caps 04/16/23 09/16/23 Rx 50 mg-300 mg-40 mg capsule (Fioricet) mirtazapine 15 mg tablet 15 mg PO QHS #30 tabs 07/20/23 09/16/23 Rx pantoprazole 40 mg tablet,delayed 40 mg PO DAILY #30 tabs 07/20/23 09/16/23 Rx release tramadol 50 mg tablet 50 mg PO Q6H PRN pain #10 tabs 08/14/23 09/16/23 Rx venlafaxine 150 mg 150 mg PO HS 09/16/23 09/16/23 History capsule,extended release 24 hr Allergies Allergy/AdvReac Type Severity Reaction Status Date / Time No Known Allergies Allergy Verified 09/16/23 10:37 Exam Narrative: chronic appearing tonsils Assessment and Plan Assessment and plan (1) Tonsil stone: Code(s): J35.8 - Other chronic diseases of tonsils and adenoids Status: Acute Assessment and Plan: OR for tonsillectomy Risks were discussed including bleeding infection damage to surrounding structures need for further procedures damage to any structure of the clavicles by myself damage to any structure during the induction and maintenance of anesthesia 3-5% chance of postoperative bleeding change in taste change in salt could be permanent.? Inherent risks of narcotic use.? Constipation.? Need for time off work time off school could be several weeks.? Patient voiced understanding of these risks and agreed. (2) Halitosis: Code(s): R19.6 - Halitosis Status: Acute (3) Recurrent tonsillitis: Code(s): J03.91 - Acute recurrent tonsillitis, unspecified Status: Acute (4) Chronic tonsillitis: Code(s): J35.01 - Chronic tonsillitis Status: Acute
[2023-09-25] VITALS (9 sets, daily range): BP systolic 111–143; BP diastolic 70–104; PULSE 66–93; RESP 10–18; TEMP 36.2; O2SAT 95–100
--- NOTE | 2023-09-25 07:16 | WPDHPUPDATE1 ---
History and Physical Update Update Date/Time: 09/25/23 07:16 History and Physical has been reviewed, including an updated exam of the patient. There are NO changes in the patient's condition. Risks, benefits, and alternatives have been discussed and questions answered. Patient agrees to proceed with procedure.
--- NOTE | 2023-09-25 09:35 | WPDANESEPPF ---
Anes - Initial Pre Proc Eval Procedure: Operation Date: 09/25/23 11:30 Proposed Procedures p Tonsillectomy - Jerrell Cortes MD Date/Time: 09/25/23 09:35 Surgeon: Jerrell Cortes MD Pre Op Diagnosis: chronic tonsillitis Patient Data Age: 33 Gender: F Height: 1.83 m Weight: 149.7 kg Allergies Allergy/AdvReac Type Severity Reaction Status Date / Time No Known Allergies Allergy Verified 09/16/23 10:37 Home Medications Medication Instructions Recorded Confirmed Type wghghlq-llyfanlwkrmuf-synfwqvm 250 1 tablet PO Q4-6H PRN Headache 03/29/21 09/16/23 History mg-250 mg-65 mg tablet (Excedrin Migraine) oenvflfjjb-hojkpfiblcfum-udyzornd 1 cap PO Q8H PRN headache #20 caps 04/16/23 09/16/23 Rx 50 mg-300 mg-40 mg capsule (Fioricet) mirtazapine 15 mg tablet 15 mg PO QHS #30 tabs 07/20/23 09/16/23 Rx pantoprazole 40 mg tablet,delayed 40 mg PO DAILY #30 tabs 07/20/23 09/16/23 Rx release tramadol 50 mg tablet 50 mg PO Q6H PRN pain #10 tabs 08/14/23 09/16/23 Rx venlafaxine 150 mg 150 mg PO HS 09/16/23 09/16/23 History capsule,extended release 24 hr Patient hx anesthesia problems: post op nausea/vomiting Family hx anesthesia problems: none Results Review: All pre-operative results and documents have been reviewed as part of the pre-operative evaluation. [facility] Past Medical History Medical History Anxiety and depression Endometriosis Fracture of 5th metatarsal GERD (gastroesophageal reflux disease) Migraine Morbid obesity Sciatica Scoliosis (spontaneous vaginal delivery) Surgical History Surgical History H/O dilation and curettage H/O laparoscopy History of endometrial ablation Hx of cholecystectomy 03/27/21 Status post right foot surgery Family History Family History Father Hypertension Sibling Hypertension Anger Arthritis Mother IBS (irritable bowel syndrome) Arthritis Depression Grandparent Heart disease Diabetes mellitus Crohn's disease Daughter ADHD Social History Social History Smoking status: Never smoker Second hand tobacco smoke exposure: No Alcohol intake: current Alcohol use details: VERY RARE Substance use: current Substance use type: marijuana Other substance usage details: VERY RARE Lack of Transportation: No Lack of Food: Never True Current Housing: I Have Housing Concerned About Future Housing: No Difficulty Paying Gas/Electric Bills: No Difficulty Paying for Meds: No Currently Unemployed: No Education: Trade/Vocational Certificate Difficulty w/ Childcare or Family Care: No Living arrangements: with family Occupation/Education: occupation Gender identity (if verbalized by the patient): Female Sexual Orientation (if Verbalized by the Patient): Bisexual Spiritual care concerns: No Agree to blood products: Yes Anes - Eval Final PreProcedure Day of Procedure 09/25/23 09:35 Patient weight: morbidly obese Heart: regular rate and rhythm Lungs: clear to auscultation Airway: Mallampati scale class II Neurological: alert and oriented Last oral intake: >/= 8 hours ASA classification: III Emergent: no Anesthetic plan: proceed Anesthesia type and monitoring: general ETT and standard monitoring Results Review: All pre-operative results and documents have been reviewed as part of the pre-operative evaluation. Informed Consent: The patient's anesthetic plan and its attendant risks and benefits were discussed with the patient/family/POA. Questions were solicited and answers provided to the satisfaction of the patient/family/POA.
[2023-09-25] MEDS: LACTATED RINGERS 1,000 ML 30 ML IV CONT (10:00)
[2023-09-25] MEDS: SCOPOLAMINE 1.5 MG PATCH TRANSDERM (10:00)
[2023-09-25] MEDS: ACETAMINOPHEN 500 MG TABLET 1000 MG PO (10:00)
[2023-09-25] MEDS: fentaNYL CITRATE INJ (*CRX) 100 MCG/2 ML VIAL 25 MCG IV PUSH ×6 (11:26→11:50)
--- NOTE | 2023-09-25 11:45 | P.OP_ITS ---
Procedure Note - Detailed Date of Procedure 09/25/23 Pre-op Diagnosis chronic tonsillitis Post-op Diagnosis Same Procedure Performed Tonsillectomy Surgeon Jerrell Cortes MD Anesthesia General Indications See above Findings Really scarred in chronic appearing tonsils excess bleeding no more than 3 cc. Description of Procedure Patient identified consent verified preop. Patient brought to the operating. Time-out performed. General anesthesia induced endotracheal tube secured airway. Patient prepped draped position 2nd time-out performed. Procedure confirmed. McIvor mouth gag inserted reveal tonsils described above they were removed bilaterally extracapsular plane using Bovie electrocautery setting today. Any bleeding controlled Bovie suction electrocautery setting at 8:10 a.m. a bipolar setting of 10. Right tonsil slightly larger than left. Left- sided blood more than normal from the on-call the left gutter behind Mynor remnant pillar palatal losses. Easily controlled Bovie suction electrocautery. McIvor mouth gag was dropped in between tonsils well after the procedure for 30 seconds and reopened to reveal no further bleeding. Patient tolerated the procedure well blood loss 3 cc. Care patient given Anesthesiology I performed all dictated portions of the procedure. Care the patient taken to PACU. Estimated Blood Loss -5.0 Drains No Packing No Pathology Yes Complications No immediate complications Condition Stable Disposition PACU [facility] Billing Surgery - Charge Forward: Surgery Billing
[2023-09-25] MEDS: diphenhydrAMINE HCl INJ 50 MG/ML VIAL 25 MG IV PUSH ×2 (11:54→12:05)
[2023-09-25] MEDS: oxyCODONE HCL (*CRX) 5 MG TAB IR PO (12:37)
== END 2023-09-25 13:45 | disposition home or self-care (01) ==
PROVIDERS: PCP Nurse Practitioner Family; Visit Provider Otolaryngology
PROC: (CPT 42826; principal; 2023-09-25 11:30)
DX: J35.01 Chronic tonsillitis (principal); K21.9 Gastro-esophageal reflux disease without esophagitis; F41.8 Other specified anxiety disorders; E66.01 Morbid (severe) obesity due to excess calories; Z68.41 Body mass index [BMI] 40.0-44.9, adult
CPT/HCPCS: 42826; 88302; A9270; J0330; J1200; J2250; J2405; J2704; J3010; J7120

== ENCOUNTER 2024-01-06 15:38 | Emergency (ER) | payer OTHER, MEDICAID, SELFPAY ==
[2024-01-06 15:45] VITALS: BP 122/77; PULSE 130; RESP 22; TEMP 37.3; O2SAT 97
--- NOTE | 2024-01-06 16:49 | ED.URI ---
HPI - URI/Sore Throat General Chief Complaint: Upper Respiratory Infection Stated Complaint: Fever/Body Aches/Shortness of Breath Time Seen by Provider: 01/06/24 16:45 Source: patient, RN notes reviewed and old records reviewed Mode of arrival: ambulatory Limitations: no limitations History of Present Illness HPI Narrative: 33 year old female who presents to [facility] with complaints of fever up to 102F, body aches, headaches, nausea some stated shortness of breath starting this morning. Patient reports that child was just diagnosed with influenza And strep. Patient has taken Ibuprofen for her symptoms. Patient report that she feels some shortness of breath with lungs clear to auscultation with SAO2 97% on room air MD elicited complaint: fever, cough, sore throat and other (body aches and headache some nausea) Onset (ago): day(s) (today) Pain scale (0-10): 6 Able to tolerate fluids by mouth: Yes Treatments prior to arrival: ibuprofen Related Data Home Medications Medication Instructions Recorded Confirmed venlafaxine 150 mg 150 mg PO HS 09/16/23 01/06/24 capsule,extended release 24 hr Allergies Allergy/AdvReac Type Severity Reaction Status Date / Time No Known Allergies Allergy Verified 01/06/24 17:00 Review of Systems Review of Systems: CONSTITUTIONAL: reports malaise, chills, sweats, or fever. EYES: Denies visual changes, redness, or discharge. ENT: Reports rhinorrhea, congestion, sinus pain, no otalgia and sore throat. CARDIOVASCULAR: Denies chest pain, palpitations, or edema. RESPIRATORY: Reports cough.? Denies acute dyspnea. GASTROINTESTINAL: Denies abdominal pain, positive for nausea,no vomiting, diarrhea SKIN: Denies rash or itching. MUSCULOSKELETAL: Reports myalgia. NEUROLOGIC: Reports headache. All systems reviewed & are unremarkable except as noted in HPI and below PMFSH Past Medical History Medical History Anxiety and depression Endometriosis Fracture of 5th metatarsal GERD (gastroesophageal reflux disease) Migraine Morbid obesity Sciatica Scoliosis (spontaneous vaginal delivery) Surgical History Surgical History H/O dilation and curettage H/O laparoscopy History of endometrial ablation Hx of cholecystectomy 03/27/21 Status post right foot surgery Family History Family History Father Hypertension Sibling Hypertension Anger Arthritis Mother IBS (irritable bowel syndrome) Arthritis Depression Grandparent Heart disease Diabetes mellitus Crohn's disease Daughter ADHD Social History Social History Smoking status: Never smoker Second hand tobacco smoke exposure: No Alcohol intake: current Alcohol use details: VERY RARE Substance use: current Substance use type: marijuana Other substance usage details: VERY RARE Lack of Transportation: No Lack of Food: Never True Current Housing: I Have Housing Concerned About Future Housing: No Difficulty Paying Gas/Electric Bills: No Difficulty Paying for Meds: No Currently Unemployed: No Education: Trade/Vocational Certificate Difficulty w/ Childcare or Family Care: No Living arrangements: with family Occupation/Education: occupation Gender identity (if verbalized by the patient): Female Sexual Orientation (if Verbalized by the Patient): Bisexual Spiritual care concerns: No Agree to blood products: Yes Comments At time of signature, agree with nursing past medical, surgical, social and family history. There is no relevant family history pertinent to the presenting complaint Exam Narrative: GENERAL: Well-appearing, well-nourished, and in no acute distress. HEAD: Normocephalic EYES: PERRLA, conjunctivae clear ENT: Nares clear, turb
== END 2024-01-06 17:11 | disposition home or self-care (01) ==
PROVIDERS: Emergency Provider Registered Nurse; PCP Nurse Practitioner Family
DX: J10.1 Influenza due to other identified influenza virus with other respiratory manifestations (principal); N80.9 Endometriosis, unspecified; K21.9 Gastro-esophageal reflux disease without esophagitis; E66.01 Morbid (severe) obesity due to excess calories; Z68.41 Body mass index [BMI] 40.0-44.9, adult; M41.9 Scoliosis, unspecified; F41.9 Anxiety disorder, unspecified; F32.A Depression, unspecified
CPT/HCPCS: 87081; 87804; 87880; 99213; G0463

== ENCOUNTER 2025-08-28 15:52 | Outpatient (CLI) | payer OTHER, SELFPAY ==
--- NOTE | ~2025-08-28 | CT_ITS ---
EXAMINATION: CT sinus wo con COMPARISON: None HISTORY: Chronic sinusitis, unspecified TECHNIQUE: Axial images were obtained without IV contrast. Sagittal, coronal reconstruction images were obtained from the axial views. CT scan performed using dose optimization techniques including the following automated exposure control; adjustment of mA and/or kV; use of iterative reconstruction technique. Automatic exposure control was used to reduce radiation dose. Permanent radiation dose record is archived to PACS. FINDINGS: Visualized brain parenchyma, optic globes and soft tissues appear unremarkable Frontal sinus is unremarkable. Minimal mucosal thickening in the ethmoidal air cells. Maxillary sinus is unremarkable. The ostiomeatal complexes are patent. Nasal septum deviated slightly to the left with mild thickening of the turbinates, no significant narrowing of the nasal cavities. Sphenoid sinus is unremarkable. No osseous destruction or wall thickening is identified. IMPRESSION: Minimal sinusitis Reviewed, dictated and finalized at location P. IMPRESSION: Minimal sinusitis
== END 2025-08-28 15:53 | disposition home or self-care (01) ==
LOC: MICIMG 15:52
PROVIDERS: PCP Otolaryngology; Visit Provider Otolaryngology
DX: J32.9 Chronic sinusitis, unspecified (principal); J34.2 Deviated nasal septum; J34.3 Hypertrophy of nasal turbinates
CPT/HCPCS: 70486

== ENCOUNTER 2025-09-09 11:04 | Outpatient (CLI) | payer OTHER, SELFPAY | END 2025-09-09 11:05 | disposition home or self-care (01) | PROVIDERS: Visit Provider Obstetrics & Gynecology | DX: N92.1 Excessive and frequent menstruation with irregular cycle (principal) | CPT/HCPCS: 36415; 86850; 86900; 86901 ==

== ENCOUNTER 2025-09-13 02:42 | Day surgery (SDC) | payer OTHER, SELFPAY ==
[2025-09-05 13:28] VITALS: BMI 30.2
--- NOTE | 2025-09-06 14:13 | PC.NURSE ---
[facility] has started construction of its new state of the art ER which will open Spring 2026. With this, we anticipate parking may be a challenge for some our surgical patients and families. Parking spaces are limited but are available for all Surgical, obstetrics, and ER patients sharing this lot. If you arrive and find you are having a hard time finding a parking space, please note that we understand the challenges, please drive around the hospital and park near Hospital Entrance 1. When you enter this entrance, you can ask a volunteer to direct or take you back to the surgical waiting area to check in. We appreciate everyone?s understanding of these expected challenges while we build for your future. Report to the Outpatient Waiting Room, entrance under the green pavilion located off [address], at time _12:00am on date _09/13/25 . Planned Procedure Time: _2:00pm .? Time changes happen often and if your time is changed the preop area will call you the afternoon before. - You and your visitor will be asked to self-screen and do not enter if you have any COVID symptoms. Please call surgeon if you need to reschedule. - A mask is optional within the hospital at this time. Patients may have clear liquids (water, carbonated beverages, clear teas, apple juice) until 3 hours prior to surgery with a maximum of 20 ounces. - No food from midnight until time of surgery and no smoking, or chewing tobacco (or any form of nicotine). No chewing gum, candy or mints. Take only the following medications with a SIP of water on the morning of surgery: __Buspirone DO NOT STOP ANY OF YOUR OTHER PRESCRIPTION MEDICATIONS PRIOR TO SURGERY EXCEPT THE FOLLOWING Hold all vitamins and supplements for 3 days per anesthesiologist. Medications to discontinue per physician n/a Date to take last dose____n/a Please no make-up, nail russian, hairspray, perfume, deodorant, or body powder the day of surgery.? No jewelry (including any body piercings) or valuables the day of surgery, leave them at home.? Please take a shower or bath the night before, or the morning of, surgery with an antibacterial soap.? Wear comfortable, loose fitting clothing. - Jewelry must be removed prior to entering the operating room.? Rings and piercings that are not removed may be cut off. - The hospital will not accept responsibility for valuables.? - Please leave all valuables, including medications, at home the day of surgery. If you are going home after surgery, a licensed rolloff driver must drive you home.? - NO public transportation without another adult if you receive anesthesia. - We recommend that an adult stay with you for 24 hours following discharge. - We also recommend that you do not drive, make important decision, drink alcoholic beverages, or take any drugs that were not prescribed by your health care provider for at least 24 hours after your discharge time. Follow any additional instructions given to you from your surgeon. Telephone instructions given to Anitha and asked if any additional questions and then verbalized understanding. Patient advised to call surgeon office or pre surgery nurse liaison [phone] if any additional questions.
[2025-09-13] VITALS (8 sets, daily range): BP systolic 96–135; BP diastolic 58–89; PULSE 51–71; RESP 12–16; TEMP 36.2–36.7; O2SAT 97–100
--- OUTSIDE RECORDS SUMMARY | 2025-09-13 02:47 | XMS_ITS | Clinical Summary ---
Author Organization [facility] Address [address] [place] [address] Care Team Providers Care Global Regulatory Lead Name Role Phone Esperanza Mckeon MD Primary Care Provider + Allergies Active Allergy Reactions Criticality Noted Date Comments Adhesive Other (See comments) Low 03/29/2024 Skin iritation Chocolate Cough Low 03/09/[address] (Protonix) 40 mg EC tablet Take 1 tablet (40 mg total) by mouth 2 (two) times a day 60 tablet 11 4 11/18/20 25 Active doxycycline monohydrate (MONODOX) 100 mg capsule 5 Active Ajovy Autoinjector 225 mg/1.5 mL auto-injector subcutaneous auto-injector 4 Active gabapentin (NEURONTIN) 100 mg capsule Take 1 capsule (100 mg total) by mouth 3 (three) times a day Active predniSONE (DELTASONE) 20 mg tablet 5 Active venlafaxine XR (EFFEXOR-XR) 75 mg 24 hr capsule 4 Active cholecalciferol (VITAMIN D-3) 50,000 unit capsule Take 1 capsule (50,000 Units total) by mouth once a week 4 capsule 11 5 04/28/20 26 Active Active Problems Problem Noted Date Diagnosed Date Status post bariatric surgery 06/28/2024 Difficulty controlling anger 11/25/2016 Overview (03/06/2017): Difficulty controlling anger Generalized anxiety disorder 11/25/2016 Overview (03/06/2017): Generalized anxiety disorder Sciatica 10/28/2016 Overview (03/06/2017): Sciatica Degeneration of intervertebral disc of lumbar re gion 10/28/2016 Overview (03/06/2017): Degeneration of lumbar intervertebral disc Spinal stenosis of lumbar region 09/01/2016 Overview (03/06/2017): Lumbar stenosis Hematoma without fracture or open wound 09/01/20 Overview (03/06/2017): Bruising Chronic migraine without aur a with status migrainosus, not intractable 05/21/2016 Overview (03/06/2017): Headaches Resolved Problems Problem Noted Date Diagnosed Date Resolved Date Morbid obesity 01/04/2024 06/28/2024 Morbid obesity due to excess calories 01/15/2023 06/28/2024 Overview (01/15/2023): Added automatically from request for surgery [id number] BMI 40.0-44.9, adult 01/01/2023 024 -induced hypertension 05/21/2016 02/21/2022 Overview (03/06/2017): induced hypertension Immunizations Immunization Administration Dates Next Due HPV, Unspecified 09/21/2007 Hep A, Unspecified 06/16/2016 Influenza, Quadrivalent, Spl it, Preservative Free, Intramuscular 09/01/2016,08/30/2015 Influenza, Unspecified 09/23/2018(Deferr ed: Patient Refused),08/30/2017 Pfizer SARS-CoV-2 Monovalent Vaccination (12+ Yrs) PURPLE 09/06/2021,12/25/2020,12/04/2020 Pneumococcal Conjugate PCV 13 09/21/2007 TD Preservative Free 07/04/2004 Tdap 06/16/2016 Surgical History Surgery Date Site/Laterality Comments FOOT SURGERY LAPAROSCOPY CHOLECYSTECTOMY 11/30/2020 - 11/29/2021 DILATION AND CURETTAGE OF UTERUS x2 ENDOMETRIAL ABLATION Medical History Medical History Date Comments Endometriosis Arthritis Anemia Anxiety Morbid obesity (HCC) Hypertension induce d Motion sickness Family History Medical History Relation Name Comments Hypertension Brother Abdias Obesity Brother Abdias ADHD Daughter Hypertension Father Neal Other Father Neal Alive and well; Heart disease Maternal Grandfather Mikal Crohn's disease Maternal Grandmother Eveline Diabetes Maternal Grandmother Eveline Osteoarthritis Maternal Grandmother Eveline Arthritis Mother Sarah Irritable bowel syndrome Mother Sarah Irr itable bowel disease; Other Mother Sarah Alive and well; Diabetes Paternal Grandmother Eveline Lupus Paternal Grandmother Eveline Malig Hyperthermia Neg Hx Pseudochol deficiency Neg Hx Relation Name Status Comments Brothjan Calero Daughter Father Neal Alive Maternal Grandfather Mikal Maternal Grandmother Eveline Mother Sarah Alive Paternal Grandmother Eveline Social History Tobacco Use Types Packs/Day Years Used Date Smoking Tobacco: Never Smokeless Tobacco: Never Tobacco Cessation:Counseling Given: Not Answered Alcohol Use Standard Drinks/Week Comments Yes 0 (1 standard drink = 0.6 oz pur e alcohol) Occassional AUDIT-C Answer Date Recorded Q1: How often do you have a drink containing alcohol? Never 02/27/2025 Q2: How many drinks containi ng alcohol do you have on a typical day when you are drinking? Patient does not drink Q3: How often do you have si x or more drinks on one occasion? Never 02/27/2025 PHQ-2 Answer Date Recorded PHQ-2 Score 0 07/21/2019 Personal Safety Answer Date Recorded Have you ever been in or are you currently in a harmful physical or emotional relationship or is someone making you feel afraid or unsafe? 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 Gender Identity Female 07/18/2019 9:05 AM CDT Sexual Orientation Bisexual 07/18/2019 9: 05 AM CDT Occupation Industry Job Start Date Job End Date [place] Not on file Not on file Not on file Obstetrics History Para Term AB IAB SAB Ectopic Multiple Livin g Live Births 3 3 2 1 3 3 Date Outcome GA Total Labor Labor/2nd/3rd Weight Sex Type Anes PTL Agnieszka A1 A5 Name Clin 013 Term 3.289 kg (7 lb 4 oz) F Vag-S pont Living Complications:Pre eclampsia 014 M Vag-S pont Living Complications:Pre eclampsia 020 Term M Vag-S pont Living Foster Last Filed Vital Signs Vital Sign Reading Time Taken Comments Blood Pressure 125/84 02/27/2025 2:29 PM CDT Pulse 79 02/27/2025 2:29 PM CDT Temperature 36.4 C (97.5 F) 02/27/2025 2:29 PM CDT Respiratory Rate 19 03/31/2024 11:45 AM CDT Oxygen Saturation 97% 02/27/2025 2:29 PM CDT Inhaled Oxygen Concentration - - Weight 104.3 kg (230 lb) 02/27/2025 2:29 PM CDT Height 182.9 cm (6') 02/27/2025 2:29 PM CDT Body Mass Index 31.19 02/27/2025 2:29 PM CDT Plan of Treatment Health Maintenance Due Date Last Done Comments Cervical Cancer Screening 1990 Hepatitis C Screening 1990 Varicella Vaccines (1 of 2 - 13+ 2-dose series) 2003 HPV Vaccines (2 - 3-dose series) 10/19/2007 09/21/2007 Regular Well Visit/Exam 18-64 2008 Depression Screening 09/23/2019 09/23/2018, 04/12/2018, 12/24/2017, Additional history exists Covid-19 Vaccine ( season) 2025 08/22/2022, 09/06/2021, 12/25/2020, Additional history exists Influenza Vaccine (#1) 2025 3, 08/31/2021, 08/21/2020, Additional history exists DTaP/Tdap/Td Vaccine (10 - Td or Tdap) 07/01/2030 07/01/2020, 04/15/2018, 06/16/2016, Additional history exists Hepatitis B Screening Completed 03/10/2000 , 09/27/1999, 08/27/1999 Pneumococcal vaccine <65 Aged Out 09/21/2007 No longer eligible based on patient's age to complete this topic Medical Devices Implanted Type Area Cargo Surveyor Device Identifier Shelf Expiration Date Model / Serial / Lot [employer] Biological Bariatric Peristrip Non Crosslinked Bovine Pericardium For Endo Lorin Thin [id number] - [id number] Implanted:Qty: 1 on 03/29/2024 by Lucas Madrigal MD at [facility] N/A: Stomach [employer] 11/18/2025 [id number] / / [id number] [employer] Biological Bariatric Peristrip Non Crosslinked Bovine Pericardium For Endo Lorin Thin [id number] - [id number] Implanted:Qty: 1 on 03/29/2024 by Lucas Madrigal MD at [facility] N/A: Stomach [employer] 11/18/2025 [id number] / / [id number] [employer] Biological Bariatric Peristrip Non Crosslinked Bovine Pericardium For Endo Lorin Thin [id number] - [id number] Implanted:Qty: 1 on 03/29/2024 by Lucas Madrigal MD at [facility] N/A: Stomach [employer] 11/18/2025 [id number] / / [id number] [employer] Biological Bariatric Peristrip Non Crosslinked Bovine Pericardium For Endo Lorin Thin [id number] - [id number] Implanted:Qty: 1 on 03/29/2024 by Lucas Madrigal MD at [facility] N/A: Stomach [employer] 11/18/2025 [id number] / / [id number] [employer] Biological Bariatric Peristrip Non Crosslinked Bovine Pericardium For Endo Lorin Thin [id number] - [id number] Implanted:Qty: 1 on 03/29/2024 by Lucas Madrigal MD at [facility] N/A: Stomach [employer] 11/18/2025 [id number] / / [id number] Insurance [facility] [id number] [facility] [id number] Advance Directives For more information, please contact: [phone] * Full Code (Latest Code Status on File) Date Activated Date Inactivated Comments 03/29/2024 1:36 PM 03/31/2024 7:02 PM Care Teams Global Regulatory Lead Relationship Specialty Start Date End Date Esperanza Mckeon MD PCP - General 01/28/25
--- OUTSIDE RECORDS SUMMARY | 2025-09-13 02:47 | XMS_ITS | Encounter Summary ---
Author Organization [facility] Address [facility] [place] [address] Care Team Providers Care Take Down Inspector Name Role Phone Esperanza Mckeon MD Primary Care Provider [phone] Encounter Details Date Type Department Care Team (Late st Contact Info) Description 07/06/2024 Apprendat Message Enc [facility] Family Medicine - [address], [address] [place] [phone] Esperanza Mckeon MD [facility] [address] [place] [id number] Records Social History Tobacco Use Types Packs/Day Years Used Date Smoking Tobacco: Never Passive Smoke Exposure: Never Smokeless Tobacco: Never Alcohol Use Standard Drinks/Week Comments Yes 0 (1 standard drink = 0.6 oz pur e alcohol) AUDIT-C Answer Date Recorded Frequency of Alcohol Consumption Monthly or less 03/18/2019 Average Number of Drinks Not on file 019 Frequency of Binge Drinking Not on file 02/28 PHQ-2 Answer Date Recorded Patient Health Questionnaire-2 Score 1 07/06/2024 Comments No Sex and Gender Information Value Date Recorded Sex Assigned at Female 07/06/2024 8:22 AM CDT 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 Question Answer Date of Assessment Author Status Little interest or pleasure in doing things Not at all 07/06/2024 7:57 AM CDT Sarah Trinidad MA Active Feeling down, depressed, or hopeless Several days 07/06/2024 7:57 AM CDT Ty Trinidad se, MA Active Patient Health Questionnaire-2 Score 1 07/06/2024 7:57 AM CDT Jaime Trinidad MA Active * Question Answer Date of Assessment Author Status Trouble falling or staying asleep, or sleeping too much Nearly every day 07/06/2024 7:57 AM CDT Sarah Trinidad, MA Active Feeling tired or having little energy More than half the days 07/06/2024 7:57 AM CDT Sarah Trinidad, MA Active Poor appetite or overeating Not at all 07/06/2024 7:57 AM CDT Sarah Trinidad MA Active Feeling bad about yourself - or that you are a failure or have let yourself or your family down Not at all 07/06/2024 7:57 AM CDT Sarah Trinidad MA Active Trouble concentrating on things, such as reading the newspaper or watching television Not at all 07/06/2024 7:57 AM CDT Sarah Trinidad, MA Active Moving or speaking so slowly that other people could have noticed? Or the opposite - being so fidgety or restless that you have been moving around a lot more than usual. Not at all 07/06/2024 7:57 AM CDT Sarah Trinidad MA Active Thoughts that you would be better off or hurting yourself in some way Not at all 07/06/2024 7:57 AM CDT Sarah Trinidad MA Active Patient Health Questionnaire-9 Score 6 07/06/2024 7:57 AM CDT Sarah Trinidad MA Active * If you checked off any problems on this questionnaire so far, Question Answer Date of Assessment Author Status How difficult have these problems made it for you to do your work, take care of things at home, or get along with other people? Somewhat difficult 07/06/2024 7:57 AM CDT Amos, Sarah G, MA Active * Over the last 2 weeks, how often have you been bothered by any of the following problems? Question Answer Date of Assessment Author Status Feeling nervous, anxious, or on edge 0 07/06/2024 7:58 AM CDT Amos, Sarah G, MA Ac tive Not being able to stop or control worrying 0 07/06/2024 7:58 AM CDT Amos, Sarah G, MA A ctive Worrying too much about different things 0 07/06/2024 7:58 AM CDT Amos, Sarah G, MA A ctive Trouble relaxing 0 07/06/2024 7:58 AM CDT McGmichelet y Sarah G, MA Active Being so restless that it is hard to sit still 3 07/06/2024 7:58 AM CDT Amos, Sarah G, MA Active Becoming easily annoyed or irritable 3 07/06/2024 7:58 AM CDT Amos, Sarah G, MA Ac tive Feeling afraid as if something awful might happen 1 07/06/2024 7:58 AM CDT Amos, Sarah G, MA Ac tive MEHRDAD-7 Total Score 7 07/06/2024 7:58 AM CDT McGsean ramos Sarah G, MA Active documented as of this encounter Plan of Treatment Not on file documented as of this encounter Visit Diagnoses Not on filedocumented in this encounter Additional Health Concerns Assessment Noted Time PHQ-9 Depression Total Score: 6 07/06/20 7:57 AM CDT documented as of this encounter Care Teams Take Down Inspector Relationship Specialty Start Date End Date Esperanza Mckeon MD [address] [place] [address] PCP - General FAMILY PRACTICE 07/05/24 documented as of this encounter
--- OUTSIDE RECORDS SUMMARY | 2025-09-13 02:47 | XMS_ITS | Clinical Summary ---
Author Organization [facility] Address [address] [place] [address] Phone Care Team Providers Care Arc And Gas Welder Name Role Phone Avelino Melany HAMPTON CNP Primary Care Provider [phone] Allergies No known active allergies Medications Erenumab-aooe (AIMOVIG SC) by Subcutaneous route. Active Vit-Fe Fumarate-FA ( VITAMIN PO) Take by mouth. Act shadi metoclopramide (REGLAN) 10 MG Tablet Take 1 Tab by mouth 4 times daily. 15 Tab 9 Active butalbital-acet aminophen-caffe ine (FIORICET, ESGIC) 50-325-40 MG Tablet Take 1 Tab by mouth every 6 hours as needed for Headaches. 15 Tab 9 Active metoclopramide (REGLAN) 10 MG Tablet Take 1 Tab by mouth 4 times daily. 10 Tab 0 Active prochlorperazin e (COMPAZINE) 10 MG Tablet Take 1 Tablet by mouth every 6 hours as needed for Nausea - 1st line. 30 Tablet 4 Active Social History Tobacco Use Types Packs/Day Years Used Date Smoking Tobacco: Never Smokeless Tobacco: Never Alcohol Use Standard Drinks/Week Comments Yes 0 (1 standard drink = 0.6 oz pur e alcohol) socially Comments No Sex and Gender Information Value Date Recorded Sex Assigned at Not on file Legal Sex Female 11:40 PM CDT Gender Identity Not on file Sexual Orientation Not on file Last Filed Vital Signs Vital Sign Reading Time Taken Comments Blood Pressure 135/88 01/11/2024 1:45 AM HYDRODYNAMICIST Pulse 88 01/10/2024 10:53 PM HYDRODYNAMICIST Temperature 36.5 C (97.7 F) 01/10/2024 10:53 PM HYDRODYNAMICIST Respiratory Rate 20 01/10/2024 10:53 PM HYDRODYNAMICIST Oxygen Saturation 99% 01/10/2024 10:53 PM HYDRODYNAMICIST Inhaled Oxygen Concentration - - Weight 149.7 kg (330 lb) 01/10/2024 10:53 PM HYDRODYNAMICIST Height 182.9 cm (6') 01/10/2024 10:53 PM HYDRODYNAMICIST Body Mass Index 44.76 01/10/2024 10:53 PM HYDRODYNAMICIST Plan of Treatment Health Maintenance Due Date Last Done Comments Hepatitis C Virus (HCV) Screening 1990 Human Papillomavirus (HPV) Immunization (2 - 3-dose series) 10/19/2007 09/21/2007 Pap Smear 2011 Cervical Cancer Screening (CCS) 2020 HPV/Cotest 2020 Influenza Immunization (#1) 07/31/202508/01, 08/31/2021, 08/21/2020, Additional history exists SARS-COV-2 Immunization (2024- season) 2025 08/22/2022, 09/06/2021, 12/25/2020, Additional history exists Respiratory Syncytial Virus (RSV) Immunization (Adult) (1 - 1-dose 75+ series) 2065 Hepatitis B Immunization Completed 000, 09/27/1999, 08/27/1999 Pneumococcal Immunization Combined Aged Out 09/21/2007 No longer eligible based on patient's age to complete this topic DTaP/Tdap/Td Immunization Discontinued 2019, 04/15/2018, 06/16/2016, Additional history exists TdaP Immunization Completed 07/01/2020, , 06/16/2016 Meningococcal Immunization (ACWY) Aged Out No longer eligible based on patient's age to complete this topic Rotavirus Immunization Aged Out No lo nger eligible based on patient's age to complete this topic Insurance MEDICAID [place] Care Teams Arc And Gas Welder Relationship Specialty Start Date End Date You, BERTA Mosley, SHARONDA PCP - General Family Medicine 01/10/24
--- OUTSIDE RECORDS SUMMARY | 2025-09-13 02:47 | XMS_ITS | Encounter Summary ---
Author Organization [facility] Address [facility] [place] [address] Care Team Providers Care Commercial Finance Manager Name Role Phone Esperanza Mckeon MD Primary Care Provider [phone] Reason for Visit * Reason Onset Date Comments Medication Problem 07/18/2024 Encounter Details Date Type Department Care Team (Late st Contact Info) Description 07/18/2024 [email or web address] Message Enc [facility] Family Medicine - [address], [address] [place] [address] [phone] Esperanza Mckeon MD [facility] [address] [place] [phone] Reaction Social History Tobacco Use Types Packs/Day Years [...] AM CDT 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 Esperanza Mckeon Sent: 07/18/2024 10:58 AM CDT Subject: Reaction I was finally able to roll picker that Qulipta yesterday, I took it around 3:30pm. A few hours later I felt like I had the flu. I had horrible body aches and was shivering, my headache was not any better. I am not sure if that is a side effect of the medication or if I just randomly got a bug. I was fine all day yesterday just I had a horrible headache. My temp was only 99 and I could not sleep due to the aches and pain and shivering so around 9:30 I took two Tylenol and a melatonin and was finallyable to fall asleep. This morning I feel better I just have a god awful migraine still. I took two more Tylenol and my head is still the same. documented in this encounter Plan of Treatment Not on file documented as of this encounter Visit Diagnoses Not on filedocumented in this encounter Additional Health Concerns Assessment Noted Time PHQ-9 Depression Total Score: 6 07/06/20 7:57 AM CDT documented as of this encounter Care Teams Commercial Finance Manager Relationship Specialty Start Date End Date Esperanza Mckeon MD [address] [place] [phone] PCP - General FAMILY PRACTICE 07/05/24 documented as of this encounter
--- OUTSIDE RECORDS SUMMARY | 2025-09-13 02:47 | XMS_ITS | Clinical Summary ---
Author Organization [facility] Address [address] [place] [address] Care Team Providers Care Shift Lab Technician Name Role Phone Esperanza Mckeon MD Primary Care Provider [phone] Allergies Active Allergy Reactions Criticality Noted Date Comments Chocolate Cough Low 03/09/2024 Tape Other (see comment) Low 03/29/2024 Skin iritation Medications pantoprazole EC 40 MG tablet 09/23/2018 Active oxymetazoline (AFRIN NASAL SPRAY) 0.05 % nasal sprayIndications :Chronic migraine without aura with status migrainosus, not intractable 2 sprays by Nasal route 2 (two) times daily as needed for Congestion. Do not use more than 3d at a time 20 mL 1 03/28/2025 Active busPIRone (BUSPAR) 5 MG tabletIndication s:Generalized anxiety disorder TAKE 1 TABLET BY MOUTH TWICE A DAY 180 tablet 1 06/05/2025 Active vitamin D3 (CHOLECALCIFEROL ) 1.25 mg capsule Take 1 capsule (1.25 mg total) by mouth once a week. 05/23/2025 Active ARIPiprazole (ABILIFY) 5 MG tabletIndication s:Generalized anxiety disorder,Difficu lty controlling anger Take 1 tablet (5 mg total) by mouth daily. 30 tablet 2 07/18/2025 Active venlafaxine XR (EFFEXOR-XR) 37.5 MG 24 hr capsuleIndicatio ns:Generalized anxiety disorder TAKE 1 CAPSULE BY MOUTH EVERY DAY 90 capsule 1 08/09/2025 Active Active Problems Problem Noted Date Diagnosed Date Endometriosis determined by laparoscopy 07/05/20 24 Status post bariatric surgery 06/28/2024 Difficulty controlling anger 11/25/2016 Overview (03/18/2019): Overview: Difficulty controlling anger Generalized anxiety disorder 11/25/2016 Overview (03/18/2019): Overview: Generalized anxiety disorder Degeneration of intervertebral disc of lumbar re gion 10/28/2016 Overview (03/18/2019): Overview: Degeneration of lumbar intervertebral disc Sciatica 10/28/2016 Overview (03/18/2019): Overview: Sciatica Spinal stenosis of lumbar region 09/01/2016 Overview (03/18/2019): Overview: Lumbar stenosis Chronic migraine without aur a with status migrainosus, not intractable 05/21/2016 Overview (03/18/2019): Overview: Headaches Resolved Problems Problem Noted Date Diagnosed Date Resolved Date Hematoma without fracture or open wound 09/01/2016 07/18/2025 Overview (03/18/2019): Overview: Bruising -induced hypertension 05/21/2016 07/05/2024 Overview (03/18/2019): Overview: induced hypertension Encounters Date Type Department Care Team Description 07/18/2025 1:00 PM CDT Office Visit [facility] - [place] [address], [address] [place] [address] Esperanza Mckeon MD Follow Up (Patient states she would like to discuss medication c/o becoming dizzy after sitting then standing up) 07/18/2025 Travel from Last 3 Months Immunizations Immunization Administration Dates Next Due Dtap (Generic) 04/16/1994, 1,1990,08/03,1990 HPV 09/21/2007 Hepatitis A (Generic) 06/16/2016,09/01/2007 Hepatitis A (Havrix [address]) 06/16/2016 Hepatitis B 03/10/2000,09/27/1999,08/27/1999 Hib (Generic) 06/19/1995,07/12/1991,04/04/1991 Influenza (Generic) 08/24/2023,08/30/2017 Influenza Adult (Generic) 08/31/2021,,09/29/2019,09/29,09/01/2016,08/30/2015 MMR (MMRII) 04/16/1994,07/12/1991 Meningococcal 09/21/2007 PFIZER COVID-19 (CHILD 6M-4Y ), MRNA TORY-SUCROSE, 3 MCG/0.2ML DOSE 12/25/2020,12/04/2020 PFIZER COVID-19 (ORIGINAL FO RMULATION, PURPLE CAP) mRNA, LNP-S, PF, 30 MCG/0.3 ML DOSE 12/25/2020,12/04/2020 PFIZER COVID-19 BIVALENT (12 +) mRNA, LNP-S, PF, 30 MCG/0.3 ML DOSE 08/22/2022 Pneumococcal (Prevnar 13) 09/21/2007 Polio Opv (Generic) 04/16/1994, 0,1990,06/01 Td (TDVAX) 07/10/2006,07/04/2004 Td (Tenivac) preservative free 07/04/2004 Tdap (Generic) 07/01/2020, 8,06/16/2016,07/10 Family History Medical History Relation Comments Hypertension Brother Arthritis Father Hypertension Father Early Maternal Grandfather Heart Maternal Grandfather Arthritis Maternal Grandmother Diabetes Maternal Grandmother GI Maternal Grandmother GI Maternal Uncle Heart Maternal Uncle Arthritis Mother GI Mother Psychiatry Mother Diabetes Paternal Grandmother Lupus Paternal Grandmother Relation Status Comments Brother Father Maternal Grandfather (Age 40) Maternal Grandmother Maternal Uncle Mother Paternal Grandmother Social History Tobacco Use Types Packs/Day Years Used Date Smoking Tobacco: Never Passive Smoke Exposure: Never Smokeless Tobacco: Never Tobacco Cessation:Counseling Given: No Alcohol Use Standard Drinks/Week Comments Not Currently 0 (1 standard drink = 0.6 oz pur e alcohol) AUDIT-C Answer Date Recorded Frequency of Alcohol Consumption Monthly or less 03/18/2019 Average Number of Drinks Not on file 019 Frequency of Binge Drinking Not on file 02/28 PHQ-2 Answer Date Recorded Patient Health Questionnaire-2 Score 0 03/28/2025 Comments No Sex and Gender Information Value Date Recorded Sex Assigned at Female 07/06/2024 8:22 AM CDT Legal Sex Female 12:41 PM ACCOUNT 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 Gender Identity Female 07/06/2024 8:22 AM CDT Sexual Orientation Bisexual 07/06/2024 8: 22 AM CDT Last Filed Vital Signs Vital Sign Reading Time Taken Comments Blood Pressure 110/70 07/18/2025 1:09 PM CDT Pulse 77 07/18/2025 1:09 PM CDT Temperature 36.1 C (97 F) 07/18/2025 1:09 PM CDT Respiratory Rate 18 10/25/2024 10:38 AM ACCOUNT TECHNICIAN Oxygen Saturation 98% 07/18/2025 1:09 PM CDT Inhaled Oxygen Concentration - - Weight 96.6 kg (213 lb) 07/18/2025 1:09 PM CDT Height 185.4 cm (6' 1) 07/18/2025 1:09 PM CDT Body Mass Index 28.1 07/18/2025 1:09 PM CDT Plan of Treatment Health Maintenance Due Date Last Done Comments Cervical Cancer Screening Pap Smear (Age 30 to 64) Every 3 Years 1990 Annual Physical 1993 HPV Vaccines (2 - 3-dose series) 10/19/2007 09/21/2007 Hepatitis C 2008 Cervical Cancer Screening Pap with HPV Testing (Age 30 to 64) Every 5 Years 2020 Cervical Cancer Screening with HPV 2020 COVID-19 Vaccine ( season) 2025 08/22/2022, 09/06/2021, 12/25/2020, Additional history exists Influenza Adult (#1) 2025 08/24/2023, 09/10/2022, 08/31/2021, Additional history exists DTaP, Tdap and Td Vaccines (11 - Td or Tdap) 07/22/2030 07/22/2020, 07/01/2020, 04/15/2018, Additional history exists Hepatitis B Vaccines Completed 03/10/2000, 09/27/1999, 08/27/1999 Meningococcal Vaccine Aged Out 09/21/2007 No annika angela eligible based on patient's age to complete this topic Pneumococcal Vaccine: Pediatrics (0 to 5 Years) and At-Risk Patients (6 to 49 Years) Aged Out 09/21/2007 No longer eligible based on patient's age to complete this topic Hepatitis A Vaccines Completed 06/16/2016, 06/16/2016, 09/01/2007 PHQ-2 (Physician [facility]) Completed 03/28/2025 Meningococcal B Vaccine Aged Out No l onger eligible based on patient's age to complete this topic RSV Immunizations Under 20 Months Aged Out No longer eligible based on patient's age to complete this topic Insurance [employer] [place] OPEN ACCESS [facility] Care Teams Shift Lab Technician Relationship Specialty Start Date End Date Esperanza Mckeon MD [address] [phone] PCP - General FAMILY PRACTICE 07/05/24
--- NOTE | 2025-09-13 09:10 | PM.IMHP ---
H&P: HPI History of Present Illness Date/Time: 09/13/25 09:10 Chief Complaint: Heavy menses Narrative: 35-year-old with menometrorrhagia refractory to conservative management. Specifically, her endometrial ablation worked well for a year, but then the bleeding has returned. She is interested in definitive management with hysterectomy. In addition, she has some redundant hymenal tissue that is bothersome and that she would like to have excised at the time of surgery. She is in a same sex relationship and does not need contraception. She has menses every 3-4 weeks lasting 7-8 days with heavy flow and lots of cramping. Review of Systems Review of Systems: All systems reviewed & are unremarkable except as noted in HPI and below PMFSH Past Medical History Medical History Morbid obesity Scoliosis Endometriosis Fracture of 5th metatarsal (spontaneous vaginal delivery) Migraine Anxiety and depression GERD (gastroesophageal reflux disease) Sciatica Surgical History Surgical History H/O gastric sleeve Hx of tonsillectomy S/P LASIK surgery of both eyes History of endometrial ablation H/O dilation and curettage Hx of cholecystectomy 03/27/21 H/O laparoscopy Status post right foot surgery Family History Family History Father Hypertension Sibling Hypertension Anger Arthritis Mother IBS (irritable bowel syndrome) Arthritis Depression Grandparent Heart disease Diabetes mellitus Crohn's disease Daughter ADHD Social History Social History Smoking status: Never smoker Second hand tobacco smoke exposure: No Alcohol intake: never Alcohol use details: VERY RARE Substance use: never Substance use type: does not use Other substance usage details: VERY RARE Lack of Transportation: No Lack of Food: Never True Current Housing: I Have Housing Concerned About Future Housing: No Difficulty Paying Gas/Electric Bills: No Difficulty Paying for Meds: No Currently Unemployed: No Education: Trade/Vocational Certificate Difficulty w/ Childcare or Family Care: No Living arrangements: with family Occupation/Education: occupation Gender identity (if verbalized by the patient): Female Sexual Orientation (if Verbalized by the Patient): Bisexual Spiritual care concerns: No Agree to blood products: Yes Meds Home Medications and Allergies Home Medications ?Medication ?Instructions ?Recorded ?Confirmed ?Type buspirone 5 mg tablet 5 mg PO BID 07/18/25 09/05/25 History cholecalciferol (vitamin D3) 1,250 1,250 mcg PO WEEKLY 07/18/25 09/05/25 History mcg (50,000 unit) capsule pantoprazole 40 mg tablet,delayed 40 mg PO QAM 07/18/25 09/05/25 History release fluticasone propionate 50 2 spray intranasal BID #16 mL 08/08/25 09/05/25 Rx mcg/actuation nasal spray,suspension (Flonase Allergy Relief) venlafaxine 150 mg 37.5 mg PO HS 08/08/25 09/05/25 History capsule,extended release 24 hr Allergies Allergy/AdvReac Type Severity Reaction Status Date / Time No Known Allergies Allergy Verified 09/05/25 13:54 Exam Const: Orientation/consciousness: patient oriented x3 Other: Well-developed, well-nourished female in no acute distress. Neck: Thyroid: thyroid normal Lymphatic: no lymphadenopathy noted (in neck, axilla or inguinal nodes) Resp: Effort & Inspection: normal respiratory effort Auscultation: clear to auscultation bilaterally Cardio: Rate: regular rate Rhythm: regular rhythm Heart sounds: S1 normal heart sound present and S2 normal heart sound present GI: Other: ABD: Soft, nontender, nondistended. No guarding or rebound tenderness. No hepatosplenomegaly. : General: Yes no CVA tenderness Other: External genitalia: normal female hair distribution, without lesion. Urethral meatus: no lesion, non prolapsed. Bladder: no mass, nontender Vagina: well-estrogenized, without significant discharge. Ragged, redundant hymenal tissue noted at the 4:00 and 8:00 positions. There is no cystocele or rectocele. Cervix: no lesion or discharge. Uterus: small, anteverted, freely mobile, nontender Adnexa: no mass or tenderness. Anus/perineum: no lesions, nontender Back/Spine/Pelvis: Back: no CVA tenderness Skin: General skin exam: normal color and no rashes or lesions noted Neuro: General: patient oriented x3 Extrem: Other: Extremities: nontender with no edema Psych: Mental Status: mental status grossly normal Affect: normal affect Assessment and Plan Assessment and plan (1) Menometrorrhagia: Code(s): N92.1 - Excessive and frequent menstruation with irregular cycle Status: Acute Assessment and Plan: A: Menometrorrhagia, refractory to conservative treatment. She also has some redundant hymenal tissue that is bothersome and that she would like to have excised. P: We reviewed medical as well surgical approaches to her problem. She prefers definitive management with hysterectomy. Specifically, I have offered her a robotic assisted total vaginal hysterectomy with bilateral salpingectomies, as well as excision of redundant hymenal tissue. We plan to leave the ovaries in situ. She understands risks of surgery to include risks of anesthesia, risks of pain, infection, bleeding, blood products, thromboembolic phenomena and damage to adjacent structures such as bowel, bladder, ureters, blood vessels and nerves. She understands hysterectomy will render her permanently sterile. She understands all these risks and elects to proceed with surgery.
[2025-09-13] MEDS: LACTATED RINGERS 1,000 ML 30 ML IV CONT ×2 (12:30→16:08)
[2025-09-13] MEDS: ACETAMINOPHEN 500 MG TABLET 1000 MG PO ×2 (13:07→21:05)
[2025-09-13] MEDS: KETOROLAC 15 MG/ML VIAL (*BKC) IV PUSH ×2 (13:07→16:00)
[2025-09-13] MEDS: fentaNYL CITRATE INJ (*CRX) 100 MCG/2 ML VIAL 50 MCG IV PUSH (13:07)
[2025-09-13] MEDS: SCOPOLAMINE 1 MG PATCH 1 PATCH TRANSDERM (13:07)
[2025-09-13 13:08] LABS: BEDSIDEPREGUCG Negative (Negative)
--- NOTE | 2025-09-13 13:35 | WPDHPUPDATE1 ---
History and Physical Update Update Date/Time: 09/13/25 13:35 History and Physical has been reviewed, including an updated exam of the patient. There are NO changes in the patient's condition. Risks, benefits, and alternatives have been discussed and questions answered. Patient agrees to proceed with procedure.
--- NOTE | 2025-09-13 13:58 | WPDANESEPPF ---
Anes - Initial Pre Proc Eval Procedure: Operation Date: 09/13/25 14:00 Proposed Procedures p Robotic Total Vaginal Hysterectomy with Bilateral Salpingectomy, Excision Redundant Hymenal Tissue - Delfino Cruz MD Date/Time: 09/13/25 13:58 Surgeon: Delfino Cruz MD Pre Op Diagnosis: Menometrorrhagia, Redundant hymenal tissue Patient Data Age: 35 Gender: F Height: 1.8 m Weight: 96.3 kg Last Vital Signs Temp 97.9 F 09/13/25 13:03 Pulse 66 09/13/25 13:03 Resp 16 09/13/25 13:03 BP 128/83 09/13/25 13:03 Pulse Ox 99 09/13/25 13:03 O2 Del Method Room Air 09/13/25 13:03 Allergies Allergy/AdvReac Type Severity Reaction Status Date / Time No Known Allergies Allergy Verified 09/13/25 13:00 Home Medications ?Medication ?Instructions ?Recorded ?Confirmed ?Type buspirone 5 mg tablet 5 mg PO BID 07/18/25 09/13/25 History cholecalciferol (vitamin D3) 1,250 1,250 mcg PO WEEKLY 07/18/25 09/05/25 History mcg (50,000 unit) capsule pantoprazole 40 mg tablet,delayed 40 mg PO QAM 07/18/25 09/13/25 History release fluticasone propionate 50 2 spray intranasal BID #16 mL 08/08/25 09/13/25 Rx mcg/actuation nasal spray,suspension (Flonase Allergy Relief) venlafaxine 150 mg 37.5 mg PO HS 08/08/25 09/13/25 History capsule,extended release 24 hr Laboratory Tests 09/13/25 13:03 POC Urine HCG, Qual Negative (Negative) Patient hx anesthesia problems: post op nausea/vomiting Family hx anesthesia problems: none Results Review: All pre-operative results and documents have been reviewed as part of the pre-operative evaluation. [facility] Past Medical History Medical History Morbid obesity Scoliosis Endometriosis Fracture of 5th metatarsal (spontaneous vaginal delivery) Migraine Anxiety and depression GERD (gastroesophageal reflux disease) Sciatica Surgical History Surgical History H/O gastric sleeve Hx of tonsillectomy S/P LASIK surgery of both eyes History of endometrial ablation H/O dilation and curettage Hx of cholecystectomy 03/27/21 H/O laparoscopy Status post right foot surgery Family History Family History Father Hypertension Sibling Hypertension Anger Arthritis Mother IBS (irritable bowel syndrome) Arthritis Depression Grandparent Heart disease Diabetes mellitus Crohn's disease Daughter ADHD Social History Social History Smoking status: Never smoker Second hand tobacco smoke exposure: No Alcohol intake: never Alcohol use details: VERY RARE Substance use: never Substance use type: does not use Other substance usage details: VERY RARE Lack of Transportation: No Lack of Food: Never True Current Housing: I Have Housing Concerned About Future Housing: No Difficulty Paying Gas/Electric Bills: No Difficulty Paying for Meds: No Currently Unemployed: No Education: Trade/Vocational Certificate Difficulty w/ Childcare or Family Care: No Living arrangements: with family Occupation/Education: occupation Gender identity (if verbalized by the patient): Female Sexual Orientation (if Verbalized by the Patient): Bisexual Spiritual care concerns: No Agree to blood products: Yes Anes - Eval Final PreProcedure Day of Procedure 09/13/25 13:58 Patient weight: normal Heart: regular rate and rhythm Lungs: clear to auscultation Airway: Mallampati scale class II Neurological: alert and oriented Last oral intake: >/= 8 hours ASA classification: II Emergent: no Anesthetic plan: proceed Anesthesia type and monitoring: general ETT and standard monitoring Results Review: All pre-operative results and documents have been reviewed as part of the pre-operative evaluation. Informed Consent: The patient's anesthetic plan and its attendant risks and benefits were discussed with the patient/family/POA. Questions were solicited and answers provided to the satisfaction of the patient/family/POA.
[2025-09-13] MEDS: ceFAZolin 2 GM in SODIUM CHLORIDE 0.9% IV 50 ML 100 ML IVPB (14:17)
--- NOTE | 2025-09-13 15:30 | S_PTH ---
PATIENT: Ana Luisa Foreman LOC: [facility] U#:[id number] AGE/SX: 35/F ROOM: RE09/13/[address]: Delfino Cruz MD : 1990 BED: DIS: 09/14/2025 SPEC #: [id number] RECD: 09/14/25 07:47 STATUS: AJ REQ #: [id number] AVELINA: 09/13/25 15:[address]: Delfino Cruz DEPT: [facility] Surgical RECD BY: Jael Gipson Tissues: A - Uterus Procedures: Hematoxylin and Eosin Stain Gross and Microscopic Level 5
--- NOTE | 2025-09-13 15:58 | P.OP_ITS ---
Procedure Note - Detailed Date of Procedure 09/13/25 Pre-op Diagnosis Menometrorrhagia Redundant hymenal tissue Post-op Diagnosis Same Procedure Performed Robotic assisted total vaginal hysterectomy with bilateral salpingectomies Excision of redundant hymenal tissue Surgeon Delfino Cruz MD Anesthesia General Findings Unremarkable-appearing uterus, bilateral ovaries and tubes, anterior and posterior cul de sac, bilateral round and uterosacral ligaments. Description of Procedure The patient was taken to the operating room where general endotracheal anesthesia was administered. She was prepared and draped in the usual sterile fashion in the dorsal lithotomy position. The bladder was drained with Santana catheter. The cervix was visualized and the anterior lip was grasped using a single-tooth tenaculum. The cervix was gently dilated using Hegar dilators. The SUSAN 2 uterine manipulator was then placed and the tenaculum was removed. Gloves were changed and attention was turned to the abdomen. A supraumbilical skin incision was made with the scalpel. The Veress needle was advanced and pneumoperitoneum was administered using carbon dioxide gas. The bladeless trocar was then advanced. Intraperitoneal placement was confirmed using the laparoscope. Lateral ports and an nursing home assistant administrator port were all placed using bladeless trocars under direct laparoscopic visualization. She was placed in Trendelenburg position and the patient cart was docked. I assumed the console. The ureters were visualized bilaterally. The round ligament on the right was divided. The Fallopian tube was dissected off the ovary, and the uteroovarian ligament was divided. The broad ligament was divided, skeletonizing the uterine artery on the right. The bladder was reflected away. The left side was similarly dissected. Colpotomy was performed circumferentially. The specimen was removed and passed off to be sent to pathology. The vaginal cuff was reapproximated using 0 Vicryl in interrupted [id number] fashion. The pelvis was irrigated copiously using warmed normal saline. Rigorous hemostasis was assured. HemaDerm was applied to the vaginal cuff. The pedicles were inspected once again. The ports were then withdrawn and the gas was allowed to escape. The skin incisions were reapproximated using 4 0 Monocryl in interrupted subcuticular fashion. Dermaflex was applied externally. Attention was then redirected to the vagina, where two small hymenal irregularities at 5 and 7:00 were excised. The tissue was discarded. The defect on her left was reapproximated with a single figure of eight suture of 3-0 Vicryl. The right- sided site was small and not bleeding and did not require a suture. Hemostasis was excellent here as well. Sponge, lap, needle and instrument counts were correct. The patient was awakened and taken to the recovery room in stable condition. I was present and scrubbed through the entire procedure. Implants None Estimated Blood Loss 100 Drains Yes (Santana) Packing No Pathology Yes (Uterus, cervix and bilateral Fallopian tubes) Complications None Condition Stable Disposition PACU [facility] Billing Surgery - Charge Forward: Surgery Billing
--- NOTE | 2025-09-13 16:06 | PM.DS ---
DS: Admitting Diagnosis Discharge Date 09/14/25 Admitting Diagnosis Menometrorrhagia Redunant hymenal tissue DS: Discharge Diagnosis Discharge Diagnosis (1) Menometrorrhagia: Code(s): N92.1 - Excessive and frequent menstruation with irregular cycle Status: Acute (2) Redundant hymenal ring tissue: Code(s): N89.8 - Other specified noninflammatory disorders of vagina Status: Acute DS: Summary Hospital Course Hospital Course: She underwent robotic assisted TVHBS with excision of redundant hymenal tissue. Postoperatively she did well. She was able to go home on POD1. DS: Data Data Completed and Pending Pending studies at discharge: Pending at discharge 09/13/25 15:30 Surgical [PTH] Routine Labs on day of discharge: Labs from last 24 hours 09/13/25 13:03 POC Urine HCG, Qual Negative Discharge Plan Discharge Attending physician on discharge: Delfino Cruz Discharging Clinician: Delfino Cruz Patient Disposition: Home Activity: may shower, may drive after 2 weeks and pelvic rest Diet: regular Wound Care Instructions: incision open to air Discharge Instructions: Nothing in the vagina for 6 weeks. Call or return if temperature above 100.4? F, increased abdominal pain, increased vaginal bleeding or any new problems. Patient Language: Samoan Stand Alone Forms: General Discharge Instructions Follow-up/Referrals: Delfino Cruz MD [Physician, TRANSCRIPTIONIST] - 2 Weeks Discharge Medications: New oxycodone-acetaminophen [Endocet] 5-325 mg tablet 1 - 2 tablet PO Q6H PRN (Reason: pain) Qty: 30 0RF Continued buspirone 5 mg tablet 5 mg PO BID pantoprazole 40 mg tablet,delayed release (DR/EC) 40 mg PO QAM cholecalciferol (vitamin D3) 1,250 mcg (50,000 unit) capsule 1,250 mcg PO WEEKLY fluticasone propionate [Flonase Allergy Relief] 50 mcg/actuation spray,suspension 2 spray intranasal BID Qty: 16 3RF Rx Instructions: administer into each nostril. Aim back/up/out venlafaxine 150 mg capsule,extended release 24hr 37.5 mg PO HS Date of admission: 09/13/25 17:23 Primary Care Provider: LindaEsperanza Admitting Provider: Delfino Cruz Attending physician on admission: Delfino Cruz Condition: Stable
[2025-09-13] MEDS: fentaNYL CITRATE INJ (*CRX) 100 MCG/2 ML VIAL 25 MCG IV PUSH ×4 (16:29→17:05)
--- NOTE | 2025-09-13 17:22 | ADMGEN ---
This patient, Ana Luisa Foreman, was admitted to OB 2nd Floor Room 289-00. Patient/family oriented to hospital policies and general routines including ID bracelet, bed and alarms, visiting hours, pain management, procedures, bathroom and other care routines, personal items, smoking policy, room service/diet, and visiting hours. Information on how to activate the Rapid Response Team has been discussed. Patient/Family are encouraged to report perceived risks to care and to ask questions if they do not understand what they are told or what they should do.
[2025-09-13] MEDS: oxyCODONE HCL (*CRX) 5 MG TAB IR PO (17:48)
[2025-09-13] MEDS: DOCUSATE SODIUM 100 MG CAPSULE PO (17:48)
[2025-09-13] MEDS: SIMETHICONE 80 MG TAB.CHEW PO (17:48)
[2025-09-13] MEDS: DEXTROSE 5%/0.45% SOD CHL 1,000 ML 125 ML IV CONT (17:49)
[2025-09-13] MEDS: KETOROLAC 30 MG/ML VIAL (*BKC) IV PUSH (21:04)
[2025-09-13] MEDS: VENLAFAXINE HCL XR 37.5 MG CAP PO (21:05)
[2025-09-13] MEDS: ENOXAPARIN 40 MG/0.4 ML SYRINGE SUB-Q (21:05)
[2025-09-13] MEDS: oxyCODONE HCL (*CRX) 5 MG TAB IR 10 MG PO (22:01)
[2025-09-14] MEDS: ACETAMINOPHEN 500 MG TABLET 1000 MG PO ×3 (02:03→13:37)
[2025-09-14] MEDS: KETOROLAC 30 MG/ML VIAL (*BKC) IV PUSH ×2 (02:05→07:56)
[2025-09-14] MEDS: DEXTROSE 5%/0.45% SOD CHL 1,000 ML 125 ML IV CONT (03:22)
[2025-09-14 04:00] VITALS: BP 103/61; PULSE 58; RESP 18; TEMP 36.9; O2SAT 100
[2025-09-14 04:55] LABS: Hematocrit 29.2 % (37.0-47.0); Hemoglobin 9.6 g/dL (12.0-15.0); Immature Granulocyte Percent A 0.4 % (0-0.5); Lymphocytes Absolute Auto 0.88 K/mm3 (0.9-3.2); Mean Corpuscular HGB Conc 32.9 g/dl (32-36); Mean Corpuscular Hemoglobin 29.6 pg (26-34); Mean Corpuscular Volume 90.1 fl (80-100); Nucleated Red Blood Cells Absolute Auto 0.000 K/mm3 (0.0-0.012); Nucleated Red Blood Cells Perc 0.0 % (0.0-0.2); Platelet Count Result 197 k/mm3 (150-375); Red Blood Count 3.24 M/mm3 (4.2-5.4); White Blood Count 11.8 K/mm3 (4.5-10.0)
[2025-09-14] MEDS: ONDANSETRON INJ 4 MG/2 ML VIAL IV PUSH ×2 (07:55→13:37)
[2025-09-14] MEDS: SIMETHICONE 80 MG TAB.CHEW PO ×2 (07:57→13:37)
[2025-09-14 08:30] VITALS: BP 96/53; PULSE 62; RESP 18; TEMP 36.8; O2SAT 99
--- NOTE | 2025-09-14 09:06 | P.PNOB_ITS ---
EVENT COORDINATOR - A/P Assessment and plan (1) Pelvic pain: Code(s): R10.2 - Pelvic and perineal pain Status: Acute Assessment and Plan: A: POD#1, doing well. P: Home to f/u 2 weeks. (2) Redundant hymenal ring tissue: Code(s): N89.8 - Other specified noninflammatory disorders of vagina Status: Acute (3) Menometrorrhagia: Code(s): N92.1 - Excessive and frequent menstruation with irregular cycle Status: Acute Postoperative Procedures: Procedures Operation Date: 09/13/25 14:00 Actual Procedure Side Surgeon p Robotic Total Vaginal Hysterectomy with Bilateral Salpingectomy, Excision Redundant Hymenal Tissue Bilateral Delfino Cruz MD Postoperative day: 1 Time Spent With Patient Time: Total time spent is greater than 50% in coordination of care (as documented) at patient's floor/unit and/or counseling patient: Time with patient: less than 15 minutes EVENT COORDINATOR- PN:Subj Post-Op Subjective Date/time seen: 09/14/25 09:06 Interval history: Pain OK. Tolerating diet. Voiding. Would like to go home. Exam 2 Narrative: AVSS I/O OK ABD soft, nontender. Incisions c/d/i. EXT nontender EVENT COORDINATOR - PN: Obj Data Vital Signs Vital Signs: Vital Signs - 24 hr 09/13/25 13:03 09/13/25 16:08 09/13/25 16:20 Temperature 97.9 F 97.9 F Pulse Rate 66 71 66 Respiratory Rate 16 12 14 Blood Pressure 128/83 135/89 133/84 Pulse Oximetry 99 100 100 Oxygen Delivery Room Air Simple Face Mask Simple Face Mask Oxygen Flow Rate 8 8 09/13/25 16:35 09/13/25 16:50 09/13/25 17:05 Temperature 97.1 F L Pulse Rate 64 51 L 57 L Respiratory Rate 12 12 12 Blood Pressure 118/74 115/75 109/71 Pulse Oximetry 100 98 98 Oxygen Delivery Simple Face Mask Room Air Room Air Oxygen Flow Rate 8 09/13/25 17:30 09/13/25 17:30 09/13/25 23:38 Temperature 97.7 F 98.0 F Pulse Rate 51 L 57 L Respiratory Rate 12 15 Blood Pressure 106/73 96/58 L Pulse Oximetry 97 97 Oxygen Delivery Room Air Oxygen Flow Rate 09/14/25 04:00 09/14/25 08:02 Temperature 98.4 F Pulse Rate 58 L Respiratory Rate 18 Blood Pressure 103/61 Pulse Oximetry 100 Oxygen Delivery Room Air Oxygen Flow Rate Intake/Output Intake/Output: Intake & Output 09/11/25 09/12/25 09/13/25 09/14/25 23:59 23:59 23:59 23:59 Intake Total 450 1000 Output Total 80 635 Balance 370 365 Meds/Results Medications: Active Medications Generic Name Dose Route Start Last Admin Trade Name Freq PRN Reason Stop Dose Admin Acetaminophen 1,000 mg 09/13/25 18:00 09/14/25 07:56 Acetaminophen 500 Mg Tablet PO 1,000 mg Q6HR EDWARD Administration Docusate Sodium 100 mg 09/13/25 17:23 09/13/25 17:48 Docusate Sodium 100 Mg Capsule PO 100 mg BID EDWARD Administration Enoxaparin Sodium 40 mg 09/13/25 22:00 09/13/25 21:05 Enoxaparin 40 Mg/0.4 Ml Syringe SUB-Q 40 mg DAILY EDWARD Administration Fluticasone Propionate 2 spray 09/13/25 17:23 09/13/25 17:51 Fluticasone Propionate 0.05% Na Spr 16 Gm Btl (*Bkc) NASAL Not Given BID [facility] Dextrose/Sodium Chloride 1,000 mls @ 125 mls/hr 09/13/25 17:23 09/14/25 03:22 Dextrose 5% Sodium Chloride 0.45% IV CONT 125 mls/hr .Q8H EDWARD Administration Ibuprofen 600 mg 09/14/25 12:00 Ibuprofen 600 Mg Tablet PO Q6HR EDWARD Morphine Sulfate 4 mg 09/13/25 17:23 Morphine Sulfate (*Crx) 4 Mg/Ml Inj IV PUSH Q4H PRN Breakthrough Pain Rated 7-10 or NPO Naloxone HCl 0.1 mg 09/13/25 17:23 Naloxone Hcl 0.4 Mg/Ml Vial IV PUSH Q2M PRN Respiratory rate less than 10 Ondansetron HCl 4 mg 09/13/25 17:23 09/14/25 07:55 Ondansetron Inj 4 Mg/2 Ml Vial IV PUSH 4 mg Q6H PRN Administration Nausea And Vomiting Oxycodone HCl 5 mg 09/13/25 17:23 09/13/25 17:48 Oxycodone Hcl (*Crx) 5 Mg Tab Ir PO 5 mg Q4H PRN Administration Pain Rated 4-6 Oxycodone HCl 10 mg 09/13/25 17:23 09/13/25 22:01 Oxycodone Hcl (*Crx) 5 Mg Tab Ir PO 10 mg Q6H PRN Administration Pain Rated 7-10 Pantoprazole Sodium 40 mg 09/14/25 09:00 Pantoprazole 40 Mg Tablet PO QAM EDWARD Simethicone 80 mg 09/13/25 17:23 09/14/25 07:57 Simethicone 80 Mg Tab.Chew PO 80 mg TIDWM EDWARD Administration Venlafaxine HCl 37.5 mg 09/13/25 21:00 09/13/25 21:05 Venlafaxine Hcl Xr 37.5 Mg Cap PO 37.5 mg HS EDWARD Administration Labs 09/14/25 03:46 Labs: Laboratory Results - last 24 hr 09/13/25 09/14/25 13:03 03:46 WBC 11.8 H RBC 3.24 L Hgb 9.6 L D Hct 29.2 L MCV 90.1 MCH 29.6 MCHC 32.9 RDW 11.6 Plt Count 197 MPV 10.8 H Immature Gran % (Auto) 0.4 Neut % (Auto) 87.5 H Lymph % (Auto) 7.5 L [place] % (Auto) 4.3 Eos % (Auto) 0.0 Baso % (Auto) 0.3 Lymph # (Auto) 0.88 L [place] # (Auto) 0.5 Eos # (Auto) 0.0 Baso # (Auto) 0.0 Abs Immat Gran (auto) 0.05 H Absolute Neuts (auto) 10.3 H Absolute Nucleated RBC 0.000 Nucleated RBC % 0.0 POC Urine HCG, Qual Negative
[2025-09-14] MEDS: PANTOPRAZOLE 40 MG TABLET PO (09:09)
[2025-09-14] MEDS: DOCUSATE SODIUM 100 MG CAPSULE PO (09:09)
[2025-09-14] MEDS: oxyCODONE HCL (*CRX) 5 MG TAB IR 10 MG PO (09:15)
--- NOTE | 2025-09-14 10:55 | WPDANESPN ---
Anes - Prog Note Post-Op Date/Time: 09/14/25 10:55 Cardiovascular status: normal Respiratory status: normal Airway patency: baseline Mental status: baseline Post-Op hydration status: normal Vital Signs: Last Vital Signs Temp 36.8 C 09/14/25 08:30 Pulse 62 09/14/25 08:30 Resp 18 09/14/25 08:30 BP 96/53 L 09/14/25 08:30 Pulse Ox 99 09/14/25 08:30 O2 Del Method Room Air 09/14/25 08:02 O2 Flow Rate 8 09/13/25 16:35 Pain Score (VAS): 01/09 I/O: Intake & Output 09/13/25 09/14/25 09/14/25 23:59 07:59 15:59 Intake Total 400 1000 Output Total 80 535 100 Balance 320 465 -100 Laboratory Tests 09/14/25 03:46 09/13/25 09/14/25 13:03 03:46 WBC 11.8 H RBC 3.24 L Hgb 9.6 L D Hct 29.2 L MCV 90.1 MCH 29.6 MCHC 32.9 RDW 11.6 Plt Count 197 MPV 10.8 H Immature Gran % (Auto) 0.4 Neut % (Auto) 87.5 H Lymph % (Auto) 7.5 L [place] % (Auto) 4.3 Eos % (Auto) 0.0 Baso % (Auto) 0.3 Lymph # (Auto) 0.88 L [place] # (Auto) 0.5 Eos # (Auto) 0.0 Baso # (Auto) 0.0 Abs Immat Gran (auto) 0.05 H Absolute Neuts (auto) 10.3 H Absolute Nucleated RBC 0.000 Nucleated RBC % 0.0 POC Urine HCG, Qual Negative Post-procedural complaints: none Patient Feedback: Patient satisfied with anesthetic care.
[2025-09-14 12:51] VITALS: BP 99/64; PULSE 59; RESP 16; TEMP 37.2; O2SAT 97
[2025-09-14] MEDS: IBUPROFEN 600 MG TABLET PO (13:36)
== END 2025-09-14 09:08 | disposition home or self-care (01) ==
LOC: ANHSURGERY 16:04 → ANHOB2 09-14 09:08
PROVIDERS: Visit Provider Obstetrics & Gynecology
PROC: (CPT 58552; principal; 2025-09-13 14:00)
DX: N89.8 Other specified noninflammatory disorders of vagina (principal); G89.18 Other acute postprocedural pain; K21.9 Gastro-esophageal reflux disease without esophagitis; F41.8 Other specified anxiety disorders; M41.9 Scoliosis, unspecified; N80.9 Endometriosis, unspecified; Z98.890 Other specified postprocedural states; Z98.84 Bariatric surgery status; Z98.891 History of uterine scar from previous surgery; Z90.49 Acquired absence of other specified parts of digestive tract; Z82.49 Family history of ischemic heart disease and other diseases of the circulatory system
CPT/HCPCS: 58552; 56700; S2900; 36415; 85025; 88307; 99199; J0690; A9270; J1171; J1650; J1885; J2250; J2405; J3010; J7120

== ENCOUNTER 2025-09-16 17:30 | Emergency (ER) | payer OTHER, SELFPAY ==
[2025-09-16 17:47] VITALS: BP 130/75; PULSE 91; RESP 17; TEMP 36.8; O2SAT 100
[2025-09-16 17:53] VITALS: BP 130/75; PULSE 86; RESP 14; TEMP 36.8; O2SAT 100
--- NOTE | 2025-09-16 17:58 | ED.NAVMDI ---
HPI - Nausea/Vomiting/Diarrhea General Chief complaint: Nausea/Vomiting/Diarrhea Stated complaint: Nausea, HERNANDEZ, had surgery on Thursday Time Seen by Provider: 09/16/25 17:44 Source: patient and family Mode of arrival: ambulatory Limitations: no limitations History of Present Illness HPI Narrative: This is a 35-year-old female with history of migraines, anxiety, depression, mineral rash a status post ablation and subsequent hysterectomy who presents the ED for headache. Patient states that she had a hysterectomy are this week. She has been having a frontal and occipital headache since then. She states that she does get headaches but this is worse than normal. She has also been having nausea without vomiting. She was given a prescription for Zofran by her surgeon but this is not been helping. She does have photophobia and phonophobia. She reports that her abdomen does feel better. Related Data Home Medications ?Medication ?Instructions ?Recorded ?Confirmed ?Last Taken ?Type buspirone 5 mg tablet 5 mg PO BID 07/18/25 09/13/25 09/12/25 History cholecalciferol (vitamin D3) 1,250 1,250 mcg PO WEEKLY 07/18/25 09/05/25 Unknown History mcg (50,000 unit) capsule pantoprazole 40 mg tablet,delayed 40 mg PO QAM 07/18/25 09/13/25 09/12/25 History release venlafaxine 150 mg 37.5 mg PO HS 08/08/25 09/13/25 09/12/25 History capsule,extended release 24 hr Allergies Allergy/AdvReac Type Severity Reaction Status Date / Time No Known Allergies Allergy Verified 09/16/25 17:32 Review of Systems Review of Systems: Gen.: Denies fevers or chills Eyes: Denies eye pain or visual change ENT: Denies congestion Respiratory: Denies shortness of breath or cough CV: Denies chest pain or palpitations GI: Denies abdominal pain nausea, emesis or diarrhea denies burning, urgency, frequency or hematuria Musculoskeletal: Denies back pain or muscle pain Neuro: Denies numbness, tingling, weakness or focal weakness Skin: Denies rash Except as documented, all other systems reviewed and negative PMFSH Past Medical History Medical History Morbid obesity Scoliosis Endometriosis Fracture of 5th metatarsal (spontaneous vaginal delivery) Migraine Anxiety and depression GERD (gastroesophageal reflux disease) Sciatica Surgical History Surgical History H/O gastric sleeve Hx of tonsillectomy S/P LASIK surgery of both eyes History of endometrial ablation H/O dilation and curettage Hx of cholecystectomy 03/27/21 H/O laparoscopy Status post right foot surgery Family History Family History Father Hypertension Sibling Hypertension Anger Arthritis Mother IBS (irritable bowel syndrome) Arthritis Depression Grandparent Heart disease Diabetes mellitus Crohn's disease Daughter ADHD Social History Social History Smoking status: Never smoker Second hand tobacco smoke exposure: No Alcohol intake: never Alcohol use details: VERY RARE Substance use: never Substance use type: does not use Other substance usage details: VERY RARE Lack of Transportation: No Lack of Food: Never True Current Housing: I Have Housing Concerned About Future Housing: No Difficulty Paying Gas/Electric Bills: No Difficulty Paying for Meds: No Currently Unemployed: No Education: Trade/Vocational Certificate Difficulty w/ Childcare or Family Care: No Living arrangements: with family Occupation/Education: occupation Gender identity (if verbalized by the patient): Female Sexual Orientation (if Verbalized by the Patient): Bisexual Spiritual care concerns: No Agree to blood products: Yes Exam Narrative: APPEARANCE: No acute distress, nontoxic, resting in bed EYES: EOMI HEENT: Normocephalic, atraumatic, OMM RESPIRATORY: No respiratory distress Clear to auscultation bilaterally with no rhonchi wheezing or rales. CARDIOVASCULAR: Regular rate and rhythm without murmurs rubs or gallops. ABDOMINAL: Soft, nontender, nondistended, no rebound or guarding MUSCULOSKELETAl: Moves all extremities. No clubbing, cyanosis or edema. NEURO: Awake and alert. Following commands, speech normal, no focal deficits SKIN:: Warm, dry. No rashes lesions or abrasions PSYCHIATRIC: Normal affect/mood, Course Vital Signs Vital signs: Vital Signs Temperature 98.3 F 09/16/25 17:47 Pulse Rate 91 09/16/25 17:47 Respiratory Rate 17 09/16/25 17:47 Blood Pressure 130/75 09/16/25 17:47 Pulse Oximetry 100 09/16/25 17:47 Oxygen Delivery Room Air 09/16/25 17:47 Temperature 98.3 F 09/16/25 17:53 Pulse Rate 71 09/16/25 20:05 Respiratory Rate 16 09/16/25 20:05 Blood Pressure 119/68 09/16/25 20:05 Pulse Oximetry 100 09/16/25 20:05 Oxygen Delivery Room Air 09/16/25 17:47 MDM - Nausea/Vomiting/Diarrhea MDM Narrative Medical decision making narrative: 35-year-old female presenting for headache with nausea and vomiting. On initial evaluation, patient was in no acute distress, afebrile, hemodynamically stable. She has nonfocal neuro exam. She did have laparoscopy incisions to her abdomen that were clean/dry/intact. There was scattered ecchymosis but her abdomen was otherwise soft and nontender. Patient was given Toradol, Compazine Benadryl a 1 L NS bolus. She was found to be anemic with hemoglobin at 7.7 which is down from 9.6 prior to surgery. CMP without significant abnormalities. She does not seem to have any obvious bleeding at this time. Suspect that the anemia is related to the surgery itself. She will be started on iron supplementation. On re-evaluation, patient did have significant improvement of her symptoms. She was advised to follow-up with her surgeon on Thursday as scheduled. Patient was agreeable to this plan. Given strict return precautions. Differential Diagnosis Differential diagnosis: Likely other (Migraine, tension headache, electrolyte abnormality, postop complication) Medical Records Attestation: I reviewed the patient's medical records. Lab Data Attestation: I reviewed the patient's lab results. 09/16/25 18:02 09/16/25 18:02 Labs: Lab Results 09/16/25 Range/Units 18:02 WBC 5.0 (4.5-10.0) K/mm3 RBC 2.61 L (4.2-5.4) M/mm3 Hgb 7.7 L (12.0-15.0) g/dL Hct 23.5 L (37.0-47.0) % MCV 90.0 (80-100) fl MCH 29.5 (26-34) pg MCHC 32.8 (32-36) g/dl RDW 12.0 (11.5-14.5) % Plt Count 174 (150-375) k/mm3 MPV 9.5 (7.4-10.4) fl Immature Gran % (Auto) 0.0 (0-0.5) % Neut % (Auto) 63.3 (45.5-73.1) % Lymph % (Auto) 24.9 (18.3-44.2) % [place] % (Auto) 7.0 (2.6-8.5) % Eos % (Auto) 4.6 H (0-4.4) % Baso % (Auto) 0.2 (0.2-1.2) % Lymph # (Auto) 1.24 (0.9-3.2) K/mm3 [place] # (Auto) 0.4 (0.1-0.6) K/mm3 Eos # (Auto) 0.2 (0-0.3) K/mm3 Baso # (Auto) 0.0 (0.0-0.1) K/mm3 Abs Immat Gran (auto) 0.00 (0.00-0.031) K/mm3 Absolute Neuts (auto) 3.2 (1.3-6.7) K/mm3 Absolute Nucleated RBC 0.000 (0.0-0.012) K/mm3 Nucleated RBC % 0.0 (0.0-0.2) % Sodium 137 (137-145) mmol/L Potassium 3.7 (3.4-5.0) mmol/L Chloride 104 (98-107) mmol/L Carbon Dioxide 28 (22-30) mmol/L Anion Gap 5 (4-12) mmol/L BUN 11 (7-17) mg/dL Creatinine 0.70 (0.7-1.0) mg/dL Estim Creat Clear Calc 129 ml/min Estimated GFR > 60 (59 - ) Glucose 88 (65-110) mg/dL Calcium 8.4 (8.4-10.2) mg/dL Total Bilirubin 0.6 (0.2-1.3) mg/dL AST 22 (14-36) U/L ALT 18 (6-35) U/L Alkaline Phosphatase 58 (38-126) U/L Total Protein 6.1 L (6.3-8.2) g/dL Albumin 3.3 L (3.5-5.1) g/dL Discharge Plan Discharge Clinical Impression: Anemia Qualifiers: Anemia type: unspecified type Qualified Code(s): D64.9 - Anemia, unspecified Acute tension headache Qualifiers: Intractability: not intractable Qualified Code(s): G44.209 - Tension-type headache, unspecified, not intractable Patient Disposition: Home Condition: Stable Instructions: Antibiotic Form, Acute Headache (ED), Anemia (ED) Patient Language: Guamanian Prescriptions: New ferrous sulfate 325 mg (65 mg iron) tablet 325 mg PO BID Qty: 60 0RF No Action buspirone 5 mg tablet 5 mg PO BID pantoprazole 40 mg tablet,delayed release (DR/EC) 40 mg PO QAM cholecalciferol (vitamin D3) 1,250 mcg (50,000 unit) capsule 1,250 mcg PO WEEKLY fluticasone propionate [Flonase Allergy Relief] 50 mcg/actuation spray,suspension 2 spray intranasal BID Qty: 16 3RF Rx Instructions: administer into each nostril. Aim back/up/out venlafaxine 150 mg capsule,extended release 24hr 37.5 mg PO HS oxycodone-acetaminophen [Endocet] 5-325 mg tablet 1 - 2 tablet PO Q6H PRN (Reason: pain) Qty: 30 0RF ondansetron 4 mg tablet,disintegrating 4 mg PO Q6H PRN (Reason: nausea and vomiting) Qty: 20 0RF Follow-up/Referrals: Jayme Edge MD [Physician, Family Practice] UNKNOWN,DOCTOR [Non-Staff]
[2025-09-16] MEDS: SODIUM CHLORIDE 0.9% IV 1,000 ML 999 ML IV CONT (18:07)
[2025-09-16] MEDS: PROCHLORPERAZINE EDISYLATE 10 MG/2 ML VIAL IV PUSH (18:08)
[2025-09-16] MEDS: KETOROLAC 30 MG/ML VIAL (*BKC) IV PUSH (18:08)
[2025-09-16 18:10] LABS: Hematocrit 23.5 % (37.0-47.0); Hemoglobin 7.7 g/dL (12.0-15.0); Immature Granulocyte Percent A 0.0 % (0-0.5); Lymphocytes Absolute Auto 1.24 K/mm3 (0.9-3.2); Mean Corpuscular HGB Conc 32.8 g/dl (32-36); Mean Corpuscular Hemoglobin 29.5 pg (26-34); Mean Corpuscular Volume 90.0 fl (80-100); Nucleated Red Blood Cells Absolute Auto 0.000 K/mm3 (0.0-0.012); Nucleated Red Blood Cells Perc 0.0 % (0.0-0.2); Platelet Count Result 174 k/mm3 (150-375); Red Blood Count 2.61 M/mm3 (4.2-5.4); White Blood Count 5.0 K/mm3 (4.5-10.0)
--- OUTSIDE RECORDS SUMMARY | 2025-09-16 18:13 | XMS_ITS | Encounter Summary ---
Author Organization [facility] Address [facility] [place] [address] Care Team Providers Care Host/Hostess Restaurant Name Role Phone Esperanza Mckeon MD Primary Care Provider [phone] Reason for Visit * Reason Onset Date Comments Medication Information 09/27/2024 Encounter Details Date Type Department Care Team (Late st Contact Info) Description 09/27/2024 Demohour Message Enc [facility] Family Medicine - [address], [address] [place] [phone] Esperanza Mckeon MD [facility] [address] [place] [phone] Gabapentin Social History Tobacco Use Types Packs/Day Years Used Date Smoking Tobacco: Never Passive Smoke Exposure: Never Smokeless Tobacco: Never Alcohol Use Standard Drinks/Week Comments Not Currently [...] AM CDT 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
--- OUTSIDE RECORDS SUMMARY | 2025-09-16 18:13 | XMS_ITS | Encounter Summary ---
Author Organization [facility] Address [facility] [place] [address] Care Team Providers Care Glass Toughening Operator Name Role Phone Esperanza Mckeon MD Primary Care Provider [phone] Encounter Details Date Type Department Care Team (Late st Contact Info) Description 07/06/2024 [email or web address] Message Enc [facility] Family Medicine - [address], [address] [place] [phone] Esperanza Mckeon MD [facility] [address] [place] [address] Records Social History Tobacco Use Types [...] AM CDT 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
--- OUTSIDE RECORDS SUMMARY | 2025-09-16 18:13 | XMS_ITS | Clinical Summary ---
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 Gender Identity Female 07/18/2019 9:05 AM CDT [...] this topic Medical Devices Implanted Type Area Infirmary Attendant Device Identifier Shelf Expiration Date Model / Serial / Lot [employer] Biological Bariatric Peristrip Non Crosslinked Bovine Pericardium For Endo Lorin Thin [id number] - [id number] Implanted:Qty: 1 on 03/29/2024 by Lucas Madrigal MD at [facility] N/A: Stomach [employer] 11/18/2025 [id number] / / [id number] [employer] Biological Bariatric Peristrip Non Crosslinked Bovine Pericardium For Endo Lorin Thin [id number] - [id number] Implanted:Qty: 1 on 03/29/2024 by Lucas Mdarigal MD at [facility] N/A: Stomach [employer] 11/18/2025 [id number] / / [id number] [employer] Biological Bariatric Peristrip Non Crosslinked Bovine Pericardium For Endo Lorin Thin [id number] - [id number] Implanted:Qty: 1 on 03/29/2024 by Lucas Madrigal MD at [facility] N/A: Stomach [employer] 11/18/2025 [id number] / / [id number] [employer] Biological Bariatric Peristrip Non Crosslinked Bovine Pericardium For Endo Lorin Thin [id number] - [id number] Implanted:Qty: 1 on 03/29/2024 by Lucas Madrigal MD at [facility] N/A: Stomach [employer] 11/18/2025 [id number] / / [id number] [employer] Biological Bariatric Peristrip Non Crosslinked Bovine Pericardium For Endo Lorin Thin [id number] - [id number] Implanted:Qty: 1 on 03/29/2024 by Lucas Madrigal MD at [facility] N/A: Stomach [employer] 11/18/2025 [id number] HN / / [id number] Insurance [facility] [id number] [facility] [id number] Advance Directives For more information, please contact: [phone] * Full Code (Latest Code Status on File) Date Activated Date Inactivated Comments 03/29/2024 1:36 PM 03/31/2024 7:02 PM Care Teams Building Economist Relationship Specialty Start Date End Date Esperanza Mckeon MD PCP - General 01/28/25
--- OUTSIDE RECORDS SUMMARY | 2025-09-16 18:13 | XMS_ITS | Encounter Summary ---
Author Organization [facility] Address [facility] [place] [address] Care Team Providers Care Supervisor Particleboard Name Role Phone Esperanza Mckeon MD Primary Care Provider [phone] Reason for Visit * Reason Onset Date Comments Medication Problem 07/18/2024 Encounter Details Date Type Department Care Team (Late st Contact Info) Description 07/18/2024 Magnitude Softwaret Message Enc [facility] Family Medicine - [address], [address] [place] [phone] Esperanza Mckeon MD [facility]2 [facility] [address] [place] [address] Reaction Social History Tobacco Use Types [...] AM CDT 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 Esperanza Mckeon Sent: 07/18/2024 10:58 AM CDT Subject: Reaction I was finally able to tack picker that Qulipta yesterday, I took it [...] documented as of this encounter Care Teams Supervisor Particleboard Relationship Specialty Start Date End Date Esperanza Mckeon MD [address] [place] [address] PCP - General FAMILY PRACTICE 07/05/24 documented as of this encounter
--- OUTSIDE RECORDS SUMMARY | 2025-09-16 18:13 | XMS_ITS | Clinical Summary ---
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 Gender Identity Female 07/06/2024 8:22 AM CDT Sexual Orientation Bisexual 07/06/2024 8: 22 AM CDT Last Filed Vital Signs Vital Sign Reading Time Taken Comments Blood Pressure 110/70 07/18/2025 1:09 PM CDT Pulse 77 07/18/2025 1:09 PM CDT Temperature 36.1 C (97 F) 07/18/2025 1:09 PM CDT Respiratory Rate 18 10/25/2024 10:38 AM DOCUMENT IMAGING MANAGER Oxygen Saturation 98% 07/18/2025 1:09 PM CDT [...] Vaccines Completed 06/16/2016, 06/16/2016, 09/01/2007 PHQ-2 (Physician Duarte) Completed 03/28/2025 Meningococcal B Vaccine Aged Out No l onger eligible based on patient's age to complete this topic RSV Immunizations Under 20 Months Aged Out No longer eligible based on patient's age to complete this topic Insurance [employer] [facility] Care Teams Shingles Roofer Helper Relationship Specialty Start Date End Date Esperanza Mckeon MD [address] [phone] PCP - General FAMILY PRACTICE 07/05/24
--- OUTSIDE RECORDS SUMMARY | 2025-09-16 18:13 | XMS_ITS | Clinical Summary ---
Author Organization [facility] Address [address] [place] [address] Phone Care Team Providers Care Band Cutting Machine Operator Name Role Phone Avelino Melany HAMPTON CNP Primary Care Provider [phone] Allergies No known active allergies Medications Erenumab-aooe [...] Comments Blood Pressure 135/88 01/11/2024 1:45 AM ASSEMBLER SEAT Pulse 88 01/10/2024 10:53 PM ASSEMBLER SEAT Temperature 36.5 C (97.7 F) 01/10/2024 10:53 PM ASSEMBLER SEAT Respiratory Rate 20 01/10/2024 10:53 PM ASSEMBLER SEAT Oxygen Saturation 99% 01/10/2024 10:53 PM ASSEMBLER SEAT Inhaled Oxygen Concentration - - Weight 149.7 kg (330 lb) 01/10/2024 10:53 PM ASSEMBLER SEAT Height 182.9 cm (6') 01/10/2024 10:53 PM ASSEMBLER SEAT Body Mass Index 44.76 01/10/2024 10:53 PM ASSEMBLER SEAT Plan of Treatment Health Maintenance Due Date [...] age to complete this topic Insurance MEDICAID [place] Care Teams Band Cutting Machine Operator Relationship Specialty Start Date End Date You, BERTA Mosley, SHARONDA PCP - General Family Medicine 01/10/24
[2025-09-16 18:23] LABS: Alanine Aminotransferase 18 U/L (6-35); Albumin Level 3.3 g/dL (3.5-5.1); Alkaline Phosphatase 58 U/L (38-126); Anion Gap 5 mmol/L (4-12); Aspartate Amino Transferase 22 U/L (14-36); Bilirubin,Total 0.6 mg/dL (0.2-1.3); Blood Urea Nitrogen 11 mg/dL (7-17); Calcium 8.4 mg/dL (8.4-10.2); Carbon Dioxide 28 mmol/L (22-30); Chloride 104 mmol/L (98-107); Estimated CRCL calculation 129 ml/min; Estimated Glomerular Filt Rate > 60; Glucose 88 mg/dL (65-110); Potassium 3.7 mmol/L (3.4-5.0); Sodium 137 mmol/L (137-145); Total Protein 6.1 g/dL (6.3-8.2)
[2025-09-16 20:05] VITALS: BP 119/68; PULSE 71; RESP 16; O2SAT 100
== END 2025-09-16 20:06 | disposition home or self-care (01) ==
PROVIDERS: Emergency Provider Student in an Organized Health Care Education/Training Program
DX: G44.209 Tension-type headache, unspecified, not intractable (principal); D64.9 Anemia, unspecified; Z98.890 Other specified postprocedural states; K21.9 Gastro-esophageal reflux disease without esophagitis; F41.9 Anxiety disorder, unspecified; F32.A Depression, unspecified; Z98.84 Bariatric surgery status; Z90.710 Acquired absence of both cervix and uterus; Z90.49 Acquired absence of other specified parts of digestive tract; Z79.899 Other long term (current) drug therapy
CPT/HCPCS: 36415; 80053; 85025; 96361; 96374; 96375; 99284; J0780; J1200; J1885; J7030

== ENCOUNTER 2025-09-20 10:15 | Outpatient (CLI) | payer OTHER, SELFPAY ==
[2025-09-20 10:54] LABS: Hematocrit 25.2 % (37.0-47.0); Hemoglobin 8.2 g/dL (12.0-15.0); Immature Granulocyte Percent A 0.5 % (0-0.5); Lymphocytes Absolute Auto 1.41 K/mm3 (0.9-3.2); Mean Corpuscular HGB Conc 32.5 g/dl (32-36); Mean Corpuscular Hemoglobin 29.7 pg (26-34); Mean Corpuscular Volume 91.3 fl (80-100); Nucleated Red Blood Cells Absolute Auto 0.000 K/mm3 (0.0-0.012); Nucleated Red Blood Cells Perc 0.0 % (0.0-0.2); Platelet Count Result 275 k/mm3 (150-375); Red Blood Count 2.76 M/mm3 (4.2-5.4); White Blood Count 6.4 K/mm3 (4.5-10.0)
--- OUTSIDE RECORDS SUMMARY | 2025-09-20 12:28 | XMS_ITS | Encounter Summary ---
Author Organization [facility] Address [facility] [place] [address] Care Team Providers Care Creative Services Writer Name Role Phone Esperanza Mckeon MD Primary Care Provider [phone] Reason for Visit * Reason Onset Date Comments Medication Information 09/27/2024 Encounter Details Date Type Department Care Team (Late st Contact Info) Description 09/27/2024 OneMob Message Enc [facility] Family Medicine - [address], [address] [place] [phone] Esperanza Mckeon MD [facility] [address] [place] [phone] Gabapentin Social History Tobacco Use Types [...] AM CDT 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
--- OUTSIDE RECORDS SUMMARY | 2025-09-20 12:29 | XMS_ITS | Clinical Summary ---
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 Gender Identity Female 07/18/2019 9:05 AM CDT [...] this topic Medical Devices Implanted Type Area Engine Inspector Device Identifier Shelf Expiration Date Model / Serial / Lot [employer] Biological Bariatric Peristrip Non Crosslinked Bovine Pericardium For Endo Lorin Thin [id number] - [id number] Implanted:Qty: 1 on 03/29/2024 by Lucas Madirgal MD at [facility] N/A: Stomach [employer] 11/18/2025 [id number] / / [id number] [employer] Biological Bariatric Peristrip Non Crosslinked Bovine Pericardium For Endo Lorin Thin [id number] - [id number] Implanted:Qty: 1 on 03/29/2024 by Lucas Madrigal MD at [facility] N/A: Stomach [employer] 11/18/2025 [id number] / / [id number] [employer] Biological Bariatric Peristrip Non Crosslinked Bovine Pericardium For Endo Lorin Thin [id number] - [id number] Implanted:Qty: 1 on 03/29/2024 by Lucas Madrigal MD at [facility] N/A: Stomach [employer] 11/18/2025 [id number] HN / / [id number] [employer] Biological Bariatric Peristrip Non Crosslinked Bovine Pericardium For Endo Lorin Thin [id number] - [id number] Implanted:Qty: 1 on 03/29/2024 by Lucas Madrigal MD at [facility] N/A: Stomach [employer] 11/18/2025 [id number] / / [id number] [employer] Biological Bariatric Peristrip Non Crosslinked Bovine Pericardium For Endo Lorin Thin [id number] - [id number] Implanted:Qty: 1 on 03/29/2024 by Lucas Madrigal MD at [facility] N/A: Stomach [employer] 11/18/2025 [id number] HN / / [id number] Insurance [facility] [id number] [facility] [id number] Advance Directives For more information, please contact: [phone] * Full Code (Latest Code Status on File) Date Activated Date Inactivated Comments 03/29/2024 1:36 PM 03/31/2024 7:02 PM Care Teams Python Java Developer Relationship Specialty Start Date End Date Esperanza Mckeon MD PCP - General 01/28/25
--- OUTSIDE RECORDS SUMMARY | 2025-09-20 12:29 | XMS_ITS | Encounter Summary ---
Author Organization [facility] Address [facility] [place] [address] Care Team Providers Care Iron Worker Foreman Name Role Phone Esperanza Mckeon MD Primary Care Provider [phone] Reason for Visit * Reason Onset Date Comments Medication Problem 07/18/2024 Encounter Details Date Type Department Care Team (Late st Contact Info) Description 07/18/2024 Easy Social Shopt Message Enc [facility] Medical Group Family Medicine - [address], [address] [place] [phone] Esperanza Mckeon MD [facility] [address] [place] [address] Reaction Social History Tobacco Use Types [...] AM CDT 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
--- OUTSIDE RECORDS SUMMARY | 2025-09-20 12:29 | XMS_ITS | Clinical Summary ---
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 Gender Identity Female 07/06/2024 8:22 AM CDT Sexual Orientation Bisexual 07/06/2024 8: 22 AM CDT Last Filed Vital Signs Vital Sign Reading Time Taken Comments Blood Pressure 110/70 07/18/2025 1:09 PM CDT Pulse 77 07/18/2025 1:09 PM CDT Temperature 36.1 C (97 F) 07/18/2025 1:09 PM CDT Respiratory Rate 18 10/25/2024 10:38 AM AIR CONDITIONING UNIT ASSEMBLER Oxygen Saturation 98% 07/18/2025 1:09 PM CDT [...] Vaccines Completed 06/16/2016, 06/16/2016, 09/01/2007 PHQ-2 (Physician Reynolds) Completed 03/28/2025 Meningococcal B Vaccine Aged Out No l onger eligible based on patient's age to complete this topic RSV Immunizations Under 20 Months Aged Out No longer eligible based on patient's age to complete this topic Insurance [place] [employer] Agentrun [facility] Care Teams Fire Patrol Relationship Specialty Start Date End Date Esperanza Mckeon MD [address] [phone] PCP - General FAMILY PRACTICE 07/05/24
--- OUTSIDE RECORDS SUMMARY | 2025-09-20 12:29 | XMS_ITS | Clinical Summary ---
Author Organization [facility] Address [address] [place] [address] Phone Care Team Providers Care Nuclear Power Plant Engineer Name Role Phone Avelino Melany HAMPTON CNP Primary Care Provider [phone] Allergies No known active allergies Medications Erenumab-aooe [...] Comments Blood Pressure 135/88 01/11/2024 1:45 AM DOCUMENTATION IMPROVEMENT SPECIALIST Pulse 88 01/10/2024 10:53 PM DOCUMENTATION IMPROVEMENT SPECIALIST Temperature 36.5 C (97.7 F) 01/10/2024 10:53 PM DOCUMENTATION IMPROVEMENT SPECIALIST Respiratory Rate 20 01/10/2024 10:53 PM DOCUMENTATION IMPROVEMENT SPECIALIST Oxygen Saturation 99% 01/10/2024 10:53 PM DOCUMENTATION IMPROVEMENT SPECIALIST Inhaled Oxygen Concentration - - Weight 149.7 kg (330 lb) 01/10/2024 10:53 PM DOCUMENTATION IMPROVEMENT SPECIALIST Height 182.9 cm (6') 01/10/2024 10:53 PM DOCUMENTATION IMPROVEMENT SPECIALIST Body Mass Index 44.76 01/10/2024 10:53 PM DOCUMENTATION IMPROVEMENT SPECIALIST Plan of Treatment Health Maintenance Due Date [...] age to complete this topic Insurance [place]ID [place] Care Teams Nuclear Power Plant Engineer Relationship Specialty Start Date End Date You, BERTA Mosley, SHARONDA PCP - General Family Medicine 01/10/24
--- OUTSIDE RECORDS SUMMARY | 2025-09-20 12:29 | XMS_ITS | Encounter Summary ---
Author Organization [facility] Address [facility] [place] [address] Care Team Providers Care Campus Coordinator Name Role Phone Esperanza Mckeon MD Primary Care Provider [phone] Encounter Details Date Type Department Care Team (Late st Contact Info) Description 07/06/2024 [email or web address] Message Enc [facility] Medical [facility] Family Medicine - [address], [address] [place] [phone] Esperanza Mckeon MD [facility]2 [facility] [address] [place] [address] Records Social History Tobacco Use Types [...] AM CDT 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
== END 2025-09-20 10:16 | disposition home or self-care (01) ==
LOC: ANHLAB 10:17
PROVIDERS: Visit Provider Nurse Practitioner Family
DX: G89.18 Other acute postprocedural pain (principal)
CPT/HCPCS: 36415; 85025